=== PATIENT | female | born 1945 | race Caucasian/White ===

== ENCOUNTER 2020-01-09 14:04 | Outpatient (CLI) | payer MEDICARE, SELFPAY ==
[2020-01-09 15:39] LABS: Immunoglobulin G 829 mg/dL (700-1600)
[2020-01-12 21:46] LABS: Immunoglobulin G, Serum 825 mg/dL (600-1540); Immunoglobulin G1 459 mg/dL (382-929); Immunoglobulin G2 286 mg/dL (241-700); Immunoglobulin G3 23 mg/dL (22-178); Immunoglobulin G4 15.1 mg/dL (4.0-86.0)
== END 2020-01-09 14:05 | disposition home or self-care (01) ==
PROVIDERS: PCP Internal Medicine; Visit Provider Nurse Practitioner Family
DX: D83.9 Common variable immunodeficiency, unspecified (principal)
CPT/HCPCS: 36415; 82784; 82787

== ENCOUNTER 2020-01-27 02:33 | Emergency (ER) | payer MEDICARE, SELFPAY ==
--- NOTE | ~2020-01-27 | CT_ITS ---
EXAMINATION: CTA chest PE protocol DATE: 01/27/2020 04:21 INDICATION: Palpitations. TECHNIQUE: Computed tomography angiography (CTA) of the chest was performed with 100 mL Omnipaque-350 intravenous contrast timed to evaluate the pulmonary arteries. Coronal maximum intensity projection 3D-reconstructions were created by the technologist. Automated exposure control and iterative reconst ruction technique were employed. The dose-length product was 242.68 mGy-cm. COMPARISON: Chest CT 12/13/2016 FINDINGS: There is mild scarring at the lung apices. Calcified right lung nodules and calcified right hilar and mediastinal lymph nodes are consistent with old granulomatous disease. There is mild atele ctasis in the inferior lungs. No pleural effusion. The heart size is normal. No pericardial effusion. There is no pulmonary embolus. There is a small sliding hiatal hernia. There is severe stenosis of c eliac axis origin. There is moderate thoracic spondylosis. IMPRESSION: 1. No pulmonary embolus. Reviewed, dictated and finalized at location A. LIFE 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 IMPRESSION: 1. No pulmonary embolus.
--- NOTE | ~2020-01-27 | XR_ITS ---
EXAMINATION: XR chest 2V DATE: 01/27/2020 03:08 INDICATION: Palpitations. TECHNIQUE: Frontal and lateral views of the chest were obtained. COMPARISON: Chest 2 views 05/10/2019, chest CT 01/27/2020 FINDINGS: There is mild scarring at the lung apices. There is mild atelectasis at left lung base. No pleural effusion or pneumothorax. The heart size is normal. IMPRESSION: 1. Mild scarring at the lung apices and mild atelectasis at left lung base. Reviewed, dictated and finalized at location A. ET CLOSER
[2020-01-27 02:31] VITALS: BP 168/84; PULSE 100; RESP 19; TEMP 36.4; O2SAT 100
--- NOTE | 2020-01-27 02:40 | ED.ARRPALP ---
HPI - Arrhythmia/Palpitations General Chief Complaint: Arrhythmia/Palpitations Stated Complaint: ELEVATED HR Time Seen by Provider: 01/27/20 02:40 Source: patient and RN notes reviewed Mode of arrival: EMS Limitations: no limitations History of Present Illness HPI narrative: Pt is a 74 y/o female who presents to the ED via EMS with c/o palpitations starting this morning. She notes that she woke up with her heart racing around 2 AM this morning. Pt states that she felt lightheaded and slightly disoriented shortly after waking up. She currently denies any CP or SOB. Pt states that her symptoms are slightly alleviated while in the ED bed. complaint: heart racing Onset (ago): minute(s) (40) Time: 02:00 Context: awoke with symptoms Associated symptoms: other (lightheadedness) Related Data Home Medications Medication Instructions Recorded Confirmed albuterol sulfate 90 mcg/actuation 1 puff INHALATION Q4H PRN 01/08/20 01/09/20 aerosol inhaler clonazepam 0.5 mg tablet 0.5 mg PO DAILY 01/08/20 01/09/20 esomeprazole magnesium 40 mg 40 mg PO DAILY 01/08/20 01/09/20 capsule,delayed release levalbuterol HCl 0.63 mg/3 mL 0.63 mg INHALATION Q6H PRN 01/08/20 01/09/20 solution for nebulization lisinopril 40 mg tablet 40 mg PO DAILY 01/08/20 01/09/20 nebivolol 5 mg tablet 5 mg PO DAILY 01/08/20 01/09/20 Allergies Allergy/AdvReac Type Severity Reaction Status Date / Time amlodipine Allergy Unknown Unknown Verified 01/27/20 02:39 azithromycin Allergy Unknown Unknown Verified 01/27/20 02:39 carvedilol Allergy Unknown Unknown Verified 01/27/20 02:39 ciprofloxacin Allergy Unknown Unknown Verified 01/27/20 02:39 diltiazem Allergy Unknown Unknown Verified 01/27/20 02:39 hydralazine Allergy Unknown Unknown Verified 01/27/20 02:39 metoprolol Allergy Unknown Unknown Verified 01/27/20 02:39 propranolol Allergy Unknown Unknown Verified 01/27/20 02:39 verapamil Allergy Unknown Unknown Verified 01/27/20 02:39 Review of Systems Review of Systems: All systems reviewed & are unremarkable except as noted in HPI and below Cardiovascular: Cardiovascular: Denies chest pain and Reports palpitations Respiratory: Respiratory: Denies dyspnea Neurologic: Reports other (lightheadedness) [facility] [place] Past Medical History Medical History Anxiety Arthritis Asthma Atrial fibrillation Back pain Bronchitis Cataracts, bilateral GERD (gastroesophageal reflux disease) HTN (hypertension) Hypothyroidism IBS (irritable bowel syndrome) Surgical History Surgical History Metal plate in skull Family History Family History (Updated 06/02/18 @ 08:57 by DOCTOR UNKNOWN) Mother Hypertension, Onset Age: 89 Acute myocardial infarction Sibling Hypertension Father Family history of congestive heart failure, Onset Age: 86 Social History Social History Smoking status: Never smoker Alcohol intake: never Exam Narrative: Exam Narrative: APPEARANCE: No acute distress, nontoxic, resting in bed EYES: EOMI HEENT: Normocephalic, atraumatic, OMM RESPIRATORY: No respiratory distress Clear to auscultation bilaterally with no rhonchi wheezing or rales. CARDIOVASCULAR: Regular rate and rhythm without murmurs rubs or gallops. ABDOMINAL: Soft, nontender, nondistended, no rebound or guarding MUSCULOSKELETAl: Moves all extremities. No clubbing, cyanosis or edema. NEURO: Awake and alert. Following commands, speech normal, no focal deficits SKIN:: Warm, dry. No rashes lesions or abrasions PSYCHIATRIC: Normal affect/mood, Course Course Emergency Course: Reviewed old records. Patient has been evaluated by this several times before in past and is followed by Dr. Kemp. She is on metoprolol is felt that anxiety contributes to her tachycardia. Patient denies having any chest pain discharge at this time
--- NOTE | 2020-01-27 02:42 | ECG_ITS ---
Measurements Intervals [place] Rate: 95 P: 0 OR: 167 QRS: 70 QRSD: 103 T: 4 QT: 363 QTc: 458 Interpretive Statements SINUS RHYTHM DELAYED PRECORDIAL R/S TRANSITION BORDERLINE ST-T WAVE ABNORMALITY- INF/LAT LEADS BORDERLINE ECG Electronically Signed On 01-27-2020 7:29:45 TRAY DRIER OPERATOR by Hayes Estrada D.O.
[2020-01-27 03:02] LABS: Basophils Percent Auto 0.2 % (0.2-1.2); Hematocrit 37.1 % (37.0-47.0); Hemoglobin 12.1 g/dL (12.0-15.0); Immature Granulocyte Absolute 0.03 K/mm3 (0.00-0.031); Immature Granulocyte Percent A 0.2 % (0-0.5); Lymphocytes Absolute Auto 0.29 K/mm3 (0.9-3.2); Lymphocytes Percent Auto 2.4 % (18.3-44.2); Mean Corpuscular HGB Conc 32.6 g/dl (32-36); Mean Corpuscular Hemoglobin 29.5 pg (26-34); Mean Corpuscular Volume 90.5 fl (80-100); Mean Platelet Volume 9.7 fl (7.4-10.4); Monocytes Absolute Auto 0.8 K/mm3 (0.1-0.6); Monocytes Percent Auto 6.8 % (2.6-8.5); Neutrophils Absolute Auto 10.9 K/mm3 (1.3-6.7); Neutrophils Percent Auto 90.4 % (45.5-73.1); Platelet Count Result 257 k/mm3 (150-375); Red Cell Distribution Width 12.3 % (11.5-14.5); White Blood Count 12.1 K/mm3 (4.5-10.0)
[2020-01-27] MEDS: LACTATED RINGERS 1,000 ML 999 ML IV CONT (03:10)
[2020-01-27 03:11] LABS: INR 0.9
[2020-01-27 03:12] LABS: Partial Thromboplastin Time 24.8 SECONDS (22.3-36.8)
[2020-01-27 03:13] LABS: Alanine Aminotransferase 23 U/L (4-35); Albumin Level 4.1 g/dL (3.5-5.1); Alkaline Phosphatase 89 U/L (38-126); Aspartate Amino Transferase 24 U/L (14-36); Bilirubin,Total 0.4 mg/dL (0.2-1.3); Blood Urea Nitrogen 19 mg/dL (7-17); Calcium 9.2 mg/dL (8.4-10.2); Carbon Dioxide 21 mmol/L (22-30); Chloride 104 mmol/L (98-107); Estimated Glomerular Filt Rate > 60; Glucose 145 mg/dL (65-105); Potassium 4.2 mmol/L (3.4-5.0); Sodium 138 mmol/L (137-145)
[2020-01-27 03:25] LABS: Troponin I < 0.012 ng/mL (0.000-0.034)
[2020-01-27 03:57] VITALS: BP 136/71; PULSE 83; RESP 16; O2SAT 97
[2020-01-27 05:04] VITALS: BP 152/75; PULSE 77; RESP 14; O2SAT 99
[2020-01-27 06:07] LABS: Troponin I < 0.012 ng/mL (0.000-0.034)
[2020-01-27 06:35] VITALS: BP 139/65; PULSE 73; RESP 12; O2SAT 99
== END 2020-01-27 06:35 | disposition home or self-care (01) ==
PROVIDERS: Emergency Provider Emergency Medicine; PCP Internal Medicine
DX: M19.90 Unspecified osteoarthritis, unspecified site (principal); J45.909 Unspecified asthma, uncomplicated; K21.9 Gastro-esophageal reflux disease without esophagitis; I10 Essential (primary) hypertension; E03.9 Hypothyroidism, unspecified; K58.9 Irritable bowel syndrome, unspecified; I48.91 Unspecified atrial fibrillation; H26.9 Unspecified cataract
CPT/HCPCS: 36415; 71046; 71275; 80053; 84484; 85025; 85610; 85730; 93005; 96360; 99284; J7120; Q9967

== ENCOUNTER 2020-10-01 08:50 | Outpatient (CLI) | payer MEDICARE, SELFPAY ==
--- NOTE | 2020-10-06 12:42 | WPDSIXMINUTE ---
Six Minute Walk Six Minute Walk: DOS: 10/01/2020 REQUESTING: Sd Anderson APRN REASON FOR TESTING: shortness of breath SIX MINUTE WALK This test was conducted per ATS standards. The initial blood pressure was 150/110. Initial saturation was 95%. Pulse was 78. The patient walked while breathing room air. There was no decrease in saturation. Lowest saturation was 94%. Highest saturation 97%. Pulse varied between 78 and 89 beats per minute. The patient walked 800 ft/ 243.8 m. IMPRESSION: this is a normal walk study without desaturation. No supplemental oxygen is indicated with exertion.
--- NOTE | 2020-10-12 12:16 | WPDPFTINT ---
PFT Interpretation PFT Interpretation: This PFT met all criteria for ATS standards and reproducibility FEV/FVC post bronchodilator 71% FEV1 91% or 1.67 liters FVC 89% or 2.36 liters There was a significant improvement in FEV1 and FVC. FVC improved by 20% or 390 ml TLC 89% RV 102% RV/TLC 48% DLCO 81% when adjusted for alveolar volume but not adjusted for hemoglobin Flow volume loops showed some expiratory coving Impression: Mild airflow obstruction with good response to bronchodilators. This pattern is suggestive of Asthma. Clinical correlation is advised.
== END 2020-10-01 08:51 | disposition home or self-care (01) ==
PROVIDERS: PCP Internal Medicine; Visit Provider Nurse Practitioner Family
DX: J44.9 Chronic obstructive pulmonary disease, unspecified (principal)
CPT/HCPCS: 94060; 94618; 94726; 94729

== ENCOUNTER 2020-10-06 08:26 | Outpatient (CLI) | payer MEDICARE, SELFPAY ==
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
[2020-11-07 11:23] VITALS: BMI 25.4
== END 2020-10-06 08:27 | disposition home or self-care (01) ==
LOC: ANHCSM 08:26
PROVIDERS: Visit Provider Nurse Practitioner Family
DX: G47.10 Hypersomnia, unspecified (principal); R00.0 Tachycardia, unspecified; I10 Essential (primary) hypertension; Z86.69 Personal history of other diseases of the nervous system and sense organs
CPT/HCPCS: 95806

== ENCOUNTER 2021-01-20 16:40 | Outpatient (CLI) | payer MEDICARE, SELFPAY ==
[2021-01-20 17:27] LABS: Basophils Percent Auto 0.2 % (0.2-1.2); Eosinophils Percent Auto 0.1 % (0-4.4); Hematocrit 42.6 % (37.0-47.0); Hemoglobin 14.4 g/dL (12.0-15.0); Immature Granulocyte Absolute 0.07 K/mm3 (0.00-0.031); Immature Granulocyte Percent A 0.6 % (0-0.5); Lymphocytes Percent Auto 7.4 % (18.3-44.2); Mean Corpuscular HGB Conc 33.8 g/dl (32-36); Mean Corpuscular Hemoglobin 30.2 pg (26-34); Mean Corpuscular Volume 89.3 fl (80-100); Mean Platelet Volume 8.9 fl (7.4-10.4); Monocytes Absolute Auto 0.7 K/mm3 (0.1-0.6); Monocytes Percent Auto 5.9 % (2.6-8.5); Neutrophils Absolute Auto 10.4 K/mm3 (1.3-6.7); Neutrophils Percent Auto 85.8 % (45.5-73.1); Platelet Count Result 298 k/mm3 (150-375); Red Blood Count 4.77 M/mm3 (4.2-5.4); Red Cell Distribution Width 12.6 % (11.5-14.5); White Blood Count 12.1 K/mm3 (4.5-10.0)
[2021-01-22 23:25] LABS: Immunoglobulin E 39 kU/L (<=114)
== END 2021-01-20 16:41 | disposition home or self-care (01) ==
LOC: ANHLAB 16:43
PROVIDERS: PCP Internal Medicine; Visit Provider Nurse Practitioner Family
DX: J45.30 Mild persistent asthma, uncomplicated (principal)
CPT/HCPCS: 36415; 82785; 85025; 86606

== ENCOUNTER 2021-03-04 13:59 | Observation (INO) | payer MEDICARE, SELFPAY ==
--- NOTE | ~2021-03-04 | XR_ITS ---
EXAMINATION: XR chest 2V DATE: 03/04/2021 16:40 INDICATION: Shortness of breath, hypertension TECHNIQUE: AP and lateral views of the chest are obtained. COMPARISON: 01/27/2020 FINDINGS: The lungs are free of focal airspace opacities. Mild atelectasis is again noted at the left lung base. There is no pleural effusion or pneumothorax. The cardiomediastinal silhouette is normal. There is moderate thoracic spondylosis. IMPRESSION: 1. No acute cardiopulmonary abnormality. Reviewed, dictated and finalized at location A.
[2021-03-04 14:02] VITALS: BP 159/117; PULSE 85; RESP 18; TEMP 35.6; O2SAT 97
--- NOTE | 2021-03-04 15:53 | ECG_ITS ---
Measurements Intervals [place] Rate: 72 P: 55 UT: 154 QRS: -19 QRSD: 94 T: 56 QT: 386 QTc: 423 Interpretive Statements SINUS RHYTHM LEFT VENTRICULAR HYPERTROPHY WITH ST-T CHANGE POOR R WAVE PROGRESSION, ANTERIOR LEADS BORDERLINE ECG Electronically Signed On 03-04-2021 19:15:30 CDT by Hayes Estrada D.O.
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
[2021-03-04] MEDS: IPRATROPIUM BR 0.02% INH SOLN 0.5 MG/2.5 ML VIAL INHALATION (16:02)
[2021-03-04] MEDS: ALBUTEROL SULFATE NEB 2.5 MG/0.5 ML INH 5 MG INHALATION (16:02)
[2021-03-04 16:12] VITALS: PULSE 77; RESP 16
[2021-03-04 16:18] LABS: Base Excess ABG -0.7 mEq/l (+/-2.0); Fractional Inspired Oxygen 21 %; HCO3 ABG 23.3 mEq/l (22.0-26.0); Oxygen Content ABG 20.3 %vol (16.0-22.0); Oxygen Saturation ABG 96.4 % (95.0-100.0); PCO2 ABG 36.7 mmHg (35.0-45.0); PO2 ABG 82.8 mmHg (80.0-100.0); PO2 FiO2 Ratio Arterial Blood 3.94 %; Total Hemoglobin 15.2 g/dL (12.0-18.0); pH ABG 7.421 (7.350-7.450)
[2021-03-04 16:20] LABS: Device ROOM AIR; Site Drawn LEFT BRACHIAL
[2021-03-04 16:23] VITALS: PULSE 68; RESP 16
[2021-03-04 16:53] LABS: Basophils Percent Auto 0.2 % (0.2-1.2); Hemoglobin 14.8 g/dL (12.0-15.0); Immature Granulocyte Absolute 0.06 K/mm3 (0.00-0.031); Immature Granulocyte Percent A 0.5 % (0-0.5); Lymphocytes Absolute Auto 1.13 K/mm3 (0.9-3.2); Lymphocytes Percent Auto 8.9 % (18.3-44.2); Mean Corpuscular HGB Conc 34.4 g/dl (32-36); Mean Corpuscular Hemoglobin 30.3 pg (26-34); Mean Corpuscular Volume 88.1 fl (80-100); Mean Platelet Volume 8.7 fl (7.4-10.4); Monocytes Absolute Auto 0.8 K/mm3 (0.1-0.6); Monocytes Percent Auto 6.4 % (2.6-8.5); Neutrophils Absolute Auto 10.6 K/mm3 (1.3-6.7); Platelet Count Result 308 k/mm3 (150-375); Red Blood Count 4.88 M/mm3 (4.2-5.4); Red Cell Distribution Width 13.1 % (11.5-14.5); White Blood Count 12.7 K/mm3 (4.5-10.0)
[2021-03-04 17:02] LABS: INR 0.9; Prothrombin Time 12.3 Seconds (11.1-14.7)
[2021-03-04 17:03] LABS: Partial Thromboplastin Time 23.3 SECONDS (22.3-36.8)
[2021-03-04 17:10] VITALS: BP 161/89; PULSE 70; RESP 13; O2SAT 97
[2021-03-04 17:10] LABS: Alanine Aminotransferase 24 U/L (4-35); Albumin Level 4.5 g/dL (3.5-5.1); Alkaline Phosphatase 77 U/L (38-126); Anion Gap 6 mmol/L (8-16); Aspartate Amino Transferase 24 U/L (14-36); Bilirubin,Total 0.3 mg/dL (0.2-1.3); Blood Urea Nitrogen 18 mg/dL (7-17); Carbon Dioxide 27 mmol/L (22-30); Chloride 106 mmol/L (98-107); Estimated CRCL calculation 44 ml/min; Estimated Glomerular Filt Rate > 60; Glucose 115 mg/dL (65-105); Potassium 4.4 mmol/L (3.4-5.0); Sodium 139 mmol/L (137-145)
[2021-03-04 17:18] LABS: NT Pro B Type Natriuretic Pept 329 PG/ML (5-100)
--- NOTE | 2021-03-04 18:25 | PC.NURSE ---
Pt took own blood pressure medication that she brought from home. Pt took Clonidine and spironolactone. Pt is unsure of the mg. Informed Dr. Cuello of this.
[2021-03-04 19:15] LABS: Troponin I < 0.012 ng/mL (0.000-0.034)
--- NOTE | 2021-03-04 19:44 | ADMGEN ---
This patient, Meryl Chavis, was admitted to Medical Room 255-01. Patient/family oriented to hospital policies and general routines including ID bracelet, bed and alarms, visiting hours, pain management, procedures, bathroom and other care routines, personal items, smoking policy, room service/diet, and visiting hours. Information on how to activate the Rapid Response Team has been discussed. Patient/Family are encouraged to report perceived risks to care and to ask questions if they do not understand what they are told or what they should do.
[2021-03-04 20:00] VITALS: BP 169/87; PULSE 73; RESP 16; TEMP 36.1; O2SAT 99; BMI 26.0
[2021-03-04 20:32] VITALS: PULSE 73
[2021-03-05] VITALS (10 sets, daily range): BP systolic 155–182; BP diastolic 79–100; PULSE 63–85; RESP 16; TEMP 36.1; O2SAT 94–96
[2021-03-05] MEDS: cloNIDine HCL 0.1 MG TABLET PO ×3 (00:57→13:40)
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
[2021-03-05] MEDS: LEVOTHYROXINE SODIUM 112 MCG TABLET PO (06:36)
[2021-03-05] MEDS: FLUTICASONE/SALMETEROL 115-21 MCG INHALER 1 PUFF 2 PUFF INHALATION (08:31)
[2021-03-05] MEDS: CIPROFLOXACIN 500 MG TAB PO (09:49)
[2021-03-05] MEDS: lisinopriL 20 MG TABLET PO (09:50)
[2021-03-05] MEDS: SPIRONOLACTONE 50 MG TABLET PO (09:54)
--- NOTE | 2021-03-05 10:45 | PM.DS ---
DS: Admitting Diagnosis Admitting Diagnosis Admitting Diagnosis: Elevated blood pressure DS: Discharge Diagnosis Discharge Diagnosis (1) Hypertension, uncontrolled: Code(s): I10 - Essential (primary) hypertension Status: Acute (2) Sputum culture positive for Pseudomonas: Code(s): R84.5 - Abnormal microbiological findings in specimens from respiratory organs and thorax Status: Acute (3) Breast cancer: Code(s): C50.919 - Malignant neoplasm of unspecified site of unspecified female breast Status: Acute (4) Anxiety: Code(s): F41.9 - Anxiety disorder, unspecified Status: Acute DS: Summary Hospital Course Hospital Course: Patient is a 75-year-old female with multiple allergies/intolerance is who was at an outpatient appointment and was sent to the ER due to elevated blood pressures. The patient states she has a long history of elevated blood pressures and white coat syndrome. Her blood pressure was over 200 systolic at the outside appointment but when she got to the ER it was 159/117. EKG showed sinus rhythm and left ventricular hypertrophy with no significant ST change on my read. This is likely due to her uncontrolled hypertension. She said she had an echo in the past and was told her heart was fine . Chest x-ray was negative. White blood cell count mildly elevated 12.7 and likely due to steroids and or Pseudomonas growing in her sputum that was reported outpatient from [facility] that she is currently on Cipro for. She has no cough, fevers or chills. BMP was within normal limits. Trops neg x 3 with BNP 329 and for her age, does not indicate active heart failure. Pt was admitted to the hospitalist service and observed. She had no CP or SOB while she was here. Her bp did improve but still slightly elevated. She has multiple allergies but her clonidine was increased and changed to patch therapy so she would have a more consistent dose. Lisinopril was also started. She is on spironolactone so she will need a BMP in 1 week to monitor her potassium. She said she is to see but hasn't been back in awhile but will follow up with him in 1-2 weeks. Overall, the pt was feeling back to her baseline and egar for d/c. She was educated about the worrisome signs and symptoms to come back to the ER for and was discharged in stable condition. Status at Discharge Overall status at discharge: patient is back to baseline Time Spent with Patient Time attestation: Total time spent providing and/or coordinating discharge services:36 min Time spent: Greater than 30 minutes Exam Narrative: Exam Narrative: General: Well developed well nourished patient in NAD HEENT: normocephalic Neck: supple Neuro: Alert and oriented. CN 2-12 intact. strength 5/5 in UE and LE CV:RRR, telemetry without abnormal reviews Resp:CTA Abd: Soft, non distended. No pain to palpation. Positive bowel sounds Extremities: No swelling, erythema, or pain to palpation. DS: Data Data Completed and Pending Labs on day of discharge: Labs from last 24 hours 03/04/21 03/04/21 03/04/21 16:46 16:46 16:46 WBC RBC Hgb Hct MCV MCH MCHC RDW Plt Count MPV Immature Gran % (Auto) Neut % (Auto) Lymph % (Auto) [place] % (Auto) Eos % (Auto) Baso % (Auto) Lymph # (Auto) [place] # (Auto) Eos # (Auto) Baso # (Auto) Abs Immat Gran (auto) Absolute Neuts (auto) Absolute Nucleated RBC Nucleated RBC % PT 12.3 INR 0.9 APTT 23.3 Puncture Site ABG pH ABG pCO2 ABG pO2 ABG PO2/FiO2 Ratio ABG HCO3 ABG O2 Saturation ABG O2 Content ABG Base Excess A-a Gradient Oxyhemoglobin Total Hemoglobin O2 Delivery Device O2 Liters/Min FiO2 Sodium 139 Potassium 4.4 Chloride 106 Carbon Dioxide 27 Anion Gap 6 L BUN 18 H Creatinine 0.80 Estim Creat Clear Calc 44 Estimated GFR > 60 Glucose
--- NOTE | 2021-03-05 11:15 | PC.NURSE ---
On 03/05/21, the student, [Siri Long ], provided care and completed [facility] documentation on this patient. I have reviewed the student's documentation and agree with the findings.
[2021-03-05] MEDS: lisinopriL 10 MG TABLET PO (12:02)
== END 2021-03-05 15:50 | disposition home or self-care (01) ==
LOC: ANHED 18:36 → ANH2MED 19:09
PROVIDERS: Admitting Provider Hospitalist; Emergency Provider Emergency Medicine; PCP Internal Medicine; Visit Provider Internal Medicine
DX: I10 Essential (primary) hypertension (principal); R06.02 Shortness of breath; B96.5 Pseudomonas (aeruginosa) (mallei) (pseudomallei) as the cause of diseases classified elsewhere; C50.912 Malignant neoplasm of unspecified site of left female breast; D72.829 Elevated white blood cell count, unspecified; F41.9 Anxiety disorder, unspecified; R07.89 Other chest pain; G89.29 Other chronic pain; I48.91 Unspecified atrial fibrillation; J44.9 Chronic obstructive pulmonary disease, unspecified; K21.9 Gastro-esophageal reflux disease without esophagitis; E03.9 Hypothyroidism, unspecified; G47.33 Obstructive sleep apnea (adult) (pediatric); H26.9 Unspecified cataract; K58.9 Irritable bowel syndrome, unspecified; Z79.51 Long term (current) use of inhaled steroids; Z79.52 Long term (current) use of systemic steroids
CPT/HCPCS: 36415; 36600; 71046; 80053; 82805; 83880; 84484; 85025; 85610; 85730; 93005; 94640; 99285; A9270; G0378

== ENCOUNTER 2021-12-10 16:41 | Emergency (ER) | payer MEDICARE, SELFPAY ==
--- NOTE | ~2021-12-10 | XR_ITS ---
XR chest 2V DATE: 12/10/2021 17:36 INDICATION: Shortness of breath, fever TECHNIQUE: 2 views COMPARISON: 03/04/2021 2 view chest FINDINGS: Normal heart size. There is aortic arch calcification and minimal aortic unfolding. No laurie r or mediastinal enlargement. The lungs are clear of infiltrate or consolidation. No pleural effusion or pulmonary vascular congest ion or pneumothorax. Left breast soft tissue clips. Diffuse osteopenia. IMPRESSION: No active cardiopulmonary disease Reviewed, dictated and finalized at location [facility]
[2021-12-10 16:54] VITALS: BP 124/68; PULSE 99; RESP 16; TEMP 37.5; O2SAT 100
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
== END 2021-12-10 18:06 | disposition home or self-care (01) ==
PROVIDERS: Emergency Provider Nurse Practitioner; PCP Emergency Medicine
DX: J06.9 Acute upper respiratory infection, unspecified (principal); J45.901 Unspecified asthma with (acute) exacerbation; M19.90 Unspecified osteoarthritis, unspecified site; K21.9 Gastro-esophageal reflux disease without esophagitis; I10 Essential (primary) hypertension; E03.9 Hypothyroidism, unspecified; G47.33 Obstructive sleep apnea (adult) (pediatric); Z98.42 Cataract extraction status, left eye; Z98.41 Cataract extraction status, right eye; Z96.1 Presence of intraocular lens; I48.91 Unspecified atrial fibrillation; Z85.3 Personal history of malignant neoplasm of breast; F41.9 Anxiety disorder, unspecified
CPT/HCPCS: 71046; 87426; 99213; C9803; G0463

== ENCOUNTER 2022-03-19 16:53 | Emergency (ER) | payer MEDICARE, SELFPAY ==
[2022-03-19 17:07] VITALS: BP 146/88; PULSE 88; RESP 18; TEMP 37.5; O2SAT 99
[2022-03-19 17:09] VITALS: BP 146/88; PULSE 88; RESP 18; TEMP 37.5; O2SAT 99
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
== END 2022-03-19 18:08 | disposition home or self-care (01) ==
PROVIDERS: Emergency Provider Nurse Practitioner Family; PCP Emergency Medicine
DX: J45.901 Unspecified asthma with (acute) exacerbation (principal); Z20.822 Contact with and (suspected) exposure to COVID-19; M19.90 Unspecified osteoarthritis, unspecified site; I48.91 Unspecified atrial fibrillation; K21.9 Gastro-esophageal reflux disease without esophagitis; I10 Essential (primary) hypertension; E03.9 Hypothyroidism, unspecified; G47.33 Obstructive sleep apnea (adult) (pediatric); J44.9 Chronic obstructive pulmonary disease, unspecified; Z85.3 Personal history of malignant neoplasm of breast; F41.9 Anxiety disorder, unspecified
CPT/HCPCS: 87426; 87804; 99213; C9803; G0463

== ENCOUNTER 2023-02-14 16:51 | Emergency (ER) | payer MEDICARE, SELFPAY ==
[2023-02-14 17:00] VITALS: BP 178/87; PULSE 103; RESP 20; TEMP 36.6; O2SAT 99
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
== END 2023-02-14 18:24 | disposition home or self-care (01) ==
PROVIDERS: Emergency Provider Nurse Practitioner Family; PCP Emergency Medicine
DX: R06.02 Shortness of breath (principal); I10 Essential (primary) hypertension; F41.9 Anxiety disorder, unspecified; E03.9 Hypothyroidism, unspecified; I48.91 Unspecified atrial fibrillation; Z85.3 Personal history of malignant neoplasm of breast
CPT/HCPCS: 99213; G0463

== ENCOUNTER 2023-05-09 15:36 | Outpatient (CLI) | payer MEDICARE, SELFPAY ==
[2023-05-09 16:04] LABS: Basophils Absolute Auto 0.1 K/mm3 (0.0-0.1); Basophils Percent Auto 0.7 % (0.2-1.2); Eosinophils Absolute Auto 0.1 K/mm3 (0-0.3); Eosinophils Percent Auto 1.6 % (0-4.4); Hemoglobin 12.8 g/dL (12.0-15.0); Immature Granulocyte Absolute 0.04 K/mm3 (0.00-0.031); Immature Granulocyte Percent A 0.4 % (0-0.5); Lymphocytes Absolute Auto 1.57 K/mm3 (0.9-3.2); Lymphocytes Percent Auto 17.6 % (18.3-44.2); Mean Corpuscular Hemoglobin 30.2 pg (26-34); Mean Corpuscular Volume 94.3 fl (80-100); Mean Platelet Volume 9.3 fl (7.4-10.4); Monocytes Absolute Auto 0.8 K/mm3 (0.1-0.6); Monocytes Percent Auto 8.9 % (2.6-8.5); Neutrophils Absolute Auto 6.3 K/mm3 (1.3-6.7); Neutrophils Percent Auto 70.8 % (45.5-73.1); Platelet Count Result 293 k/mm3 (150-375); Red Blood Count 4.24 M/mm3 (4.2-5.4); Red Cell Distribution Width 12.3 % (11.5-14.5); White Blood Count 8.9 K/mm3 (4.5-10.0)
[2023-05-09 16:41] LABS: Alanine Aminotransferase 19 U/L (6-35); Albumin Level 4.2 g/dL (3.5-5.1); Alkaline Phosphatase 96 U/L (38-126); Anion Gap 6 mmol/L (8-16); Aspartate Amino Transferase 26 U/L (14-36); Bilirubin,Total 0.3 mg/dL (0.2-1.3); Blood Urea Nitrogen 24 mg/dL (7-17); Calcium 9.4 mg/dL (8.4-10.2); Carbon Dioxide 30 mmol/L (22-30); Chloride 98 mmol/L (98-107); Estimated Glomerular Filt Rate 60; Glucose 96 mg/dL (65-110); Potassium 3.2 mmol/L (3.4-5.0); Sodium 134 mmol/L (137-145)
[2023-05-09 16:58] LABS: Immunoglobulin A 230 mg/dL (70-400); Immunoglobulin G 632 mg/dL (700-1600); Immunoglobulin M 33 mg/dL (40-230)
[2023-05-12 12:57] LABS: Lambda Light Chain 11.7 mg/L (5.7-26.3)
[2023-05-12 15:50] LABS: Alpha 1 Globulin 0.3 g/dL (0.2-0.3); Alpha 2 Globulin 0.9 g/dL (0.5-0.9); Beta 1 Globulin 0.4 g/dL (0.4-0.6); Gamma Globulin 0.6 g/dL (0.8-1.7); Interpretation Consistent with; Protein, Total 6.6 g/dL (6.1-8.1)
== END 2023-05-09 15:37 | disposition home or self-care (01) ==
LOC: ANHLAB 15:42
PROVIDERS: PCP Internal Medicine Endocrinology, Diabetes & Metabolism; Visit Provider Internal Medicine Hematology & Oncology
DX: D80.9 Immunodeficiency with predominantly antibody defects, unspecified (principal)
CPT/HCPCS: 36415; 80053; 82784; 83883; 84155; 84165; 85025

== ENCOUNTER 2023-11-01 12:50 | Emergency (ER) | payer MEDICARE, SELFPAY ==
--- NOTE | ~2023-11-01 | CT_ITS ---
EXAMINATION: CT abdomen pelvis w con DATE: 11/01/2023 16:42 INDICATION: Nausea, vomiting and lower abdominal pain TECHNIQUE: Computed tomography (CT) of the abdomen and pelvis was performed with 100 mL Omnipaque-350 intravenous contrast. Automated exposure control and iterative reconstruction technique were employe d. The dose-length product was 356.25 mGy-cm. COMPARISON: None FINDINGS: Mild discoid atelectasis in the left lower lobe. Calcified right lower lobe nodules consistent with o ld granulomatous disease. Heart size is normal. No pericardial or pleural effusion. Small sliding-typ e hiatal hernia. Liver, gallbladder, spleen, pancreas, bilateral adrenal glands and kidneys are romy l. Moderate sigmoid: Predominant diverticulosis without adjacent from trace stranding to suggest dive rticular colitis. Small bowel and appendix are normal. Few small calcified degenerated uterine fibroi ds. Bladder and bilateral adnexa are unremarkable. No free intraperitoneal gas or fluid. No pathologi krissy enlarged abdominal or pelvic lymphadenopathy. There is calcified atherosclerosis of the aorta a nd many of the other arteries. There appears be a hemodynamically significant stenosis of approximate ly 70% at the proximal left renal artery and instability 70% at the origin of the celiac axis. Mild t o moderate lumbar and lower thoracic spondylosis. IMPRESSION: 1. No acute intra-abdominal/pelvic process. 2. Sigmoid diverticulosis. 3. Extensive atherosclerotic disease with likely hemodynamically significant stenosis at the origin o f the celiac axis and proximal left renal artery. Reviewed, dictated and finalized at location A. [employer] IMPRESSION: 1. No acute intra-abdominal/pelvic process. 2. Sigmoid diverticulosis. 3. Extensive atherosclerotic disease with likely hemodynamically significant st enosis at the origin of the celiac axis and proximal left renal artery.
[2023-11-01 12:55] VITALS: BP 184/99; PULSE 94; RESP 16; TEMP 36.4; O2SAT 99
--- NOTE | 2023-11-01 15:20 | ED.ABDPAIN ---
HPI - Abdominal Pain General Chief Complaint: Abdominal Pain <America Virk PA-C - Last Filed: 11/01/23 15:33> Stated Complaint: abd pain <America Virk PA-C - Last Filed: 11/01/23 15:33> Time Seen by Provider: 11/01/23 19:43 <America Virk PA-C - Last Filed: 11/01/23 15:33> History of Present Illness HPI narrative: Patient is an 78 y/o female who presents to the ED with c/o abdominal pain. Patient reports she was diagnosed with recurrent diverticulitis 3 weeks ago. She was admitted to [facility] two different times, most recently discharged on 10/18. She states she felt like she was discharged too early both times. She is still currently on Augmentin, but denies improvement of sx's. Patient c/o persistent N/V, persistent pain in lower abdominal pain. Pain worse with eating. Reports intermittent fevers and diarrhea, denies rectal bleeding, melena. Denies urinary complaints. <America Vikr PA-C - Last Filed: 11/01/23 15:33> Patient is an 78 y/o female who presents to the ED with nausea vomiting. Patient states that she was recently hospitalized at [place] several times in the last month for diverticulitis. states she has been having several months of postprandial nausea and vomiting. States that she can really only tolerate broth and toast. She has had extensive workups at [facility] even undergoing Botox to her pylorus. states that she unfortunately continues to have persistent nausea and vomiting after eating. She denies pain after eating. States that her pain has resolved with antibiotics. States that she is supposed to call 1 of her surgeons for follow-up tomorrow. No further complaints or concerns. <Katy Singletary MD - Last Filed: 11/08/23 15:10> Related Data Home Medications: Home Medications Medication Instructions Recorded Confirmed albuterol sulfate 90 mcg/actuation 1 puff inhalation Q4H PRN 01/08/20 02/14/23 aerosol inhaler (Ventolin HFA) Shortness Of Breath Or Wheezing fluticasone 250 mcg-salmeterol 50 1 inh inhalation BID 01/20/21 02/14/23 mcg/dose blistr powdr for inhalation (Advair Diskus) anastrozole 1 mg tablet 1 mg PO DAILY 03/19/22 02/14/23 clonazepam 1 mg tablet 1 mg PO TID 03/19/22 02/14/23 clonidine HCl 0.1 mg tablet 0.1 mg PO BID 03/19/22 02/14/23 hydrochlorothiazide 25 mg tablet 25 mg PO DIRECTED 03/19/22 02/14/23 letrozole 2.5 mg tablet 2.5 mg PO DAILY 03/19/22 02/14/23 levothyroxine 50 mcg tablet 50 mcg PO DIRECTED 03/19/22 02/14/23 liothyronine 5 mcg tablet 5 mcg PO BID 03/19/22 02/14/23 verapamil 40 mg tablet 40 mg PO BID 03/19/22 02/14/23 <YOKASTA Newman Last Filed: 11/01/23 15:33> Allergies/Adverse Reactions: Allergies Allergy/AdvReac Type Severity Reaction Status Date / Time amlodipine Allergy Unknown Unknown Verified 11/01/23 19:25 azithromycin Allergy Unknown Unknown Verified 11/01/23 19:25 carvedilol Allergy Unknown Unknown Verified 11/01/23 19:25 diltiazem Allergy Unknown Unknown Verified 11/01/23 19:25 hydralazine Allergy Unknown Unknown Verified 11/01/23 19:25 metoprolol Allergy Unknown Unknown Verified 11/01/23 19:25 propranolol Allergy Unknown Unknown Verified 11/01/23 19:25 verapamil Allergy Unknown Unknown Verified 11/01/23 19:25 atenolol Allergy Shakiness Verified 11/01/23 19:25 <YOKASTA Newman Last Filed: 11/01/23 15:33> Review of Systems Review of Systems: CONSTITUTIONAL: See HPI. GASTROINTESTINAL: See HPI. GENITOURINARY: Denies dysuria or hematuria. SKIN: Denies rash or itching. MUSCULOSKELETAL: Denies back pain, joint pain, or myalgia. <YOKASTA Newman Last Filed: 11/01/23 15:33> All systems reviewed & are unremarkable except as noted in HPI and below <YOKASTA Newman Last Filed: 11/01/23 15:33> [facility] Past Medical History Medical History: Medical History (Reviewed 11/01/23 @ 15:27 by America Viera
[2023-11-01 15:36] VITALS: BP 190/113; PULSE 76; RESP 15; O2SAT 97
[2023-11-01 15:41] LABS: Basophils Percent Auto 0.3 % (0.2-1.2); Eosinophils Absolute Auto 0.1 K/mm3 (0-0.3); Eosinophils Percent Auto 1.5 % (0-4.4); Hematocrit 42.2 % (37.0-47.0); Hemoglobin 13.9 g/dL (12.0-15.0); Immature Granulocyte Absolute 0.04 K/mm3 (0.00-0.031); Immature Granulocyte Percent A 0.4 % (0-0.5); Lymphocytes Absolute Auto 1.27 K/mm3 (0.9-3.2); Lymphocytes Percent Auto 13.6 % (18.3-44.2); Mean Corpuscular HGB Conc 32.9 g/dl (32-36); Mean Corpuscular Hemoglobin 29.8 pg (26-34); Mean Corpuscular Volume 90.6 fl (80-100); Mean Platelet Volume 9.5 fl (7.4-10.4); Monocytes Absolute Auto 0.9 K/mm3 (0.1-0.6); Monocytes Percent Auto 9.5 % (2.6-8.5); Neutrophils Percent Auto 74.7 % (45.5-73.1); Platelet Count Result 268 k/mm3 (150-375); Red Blood Count 4.66 M/mm3 (4.2-5.4); Red Cell Distribution Width 14.2 % (11.5-14.5); White Blood Count 9.4 K/mm3 (4.5-10.0)
[2023-11-01 15:50] LABS: Lactic Acid Reflex 1.7 mmol/L (0.7-2.0)
[2023-11-01 15:54] LABS: Alanine Aminotransferase 23 U/L (6-35); Albumin Level 4.3 g/dL (3.5-5.1); Alkaline Phosphatase 85 U/L (38-126); Anion Gap 8 mmol/L (8-16); Aspartate Amino Transferase 26 U/L (14-36); Bilirubin,Total 0.4 mg/dL (0.2-1.3); Blood Urea Nitrogen 23 mg/dL (7-17); Calcium 9.6 mg/dL (8.4-10.2); Carbon Dioxide 28 mmol/L (22-30); Chloride 102 mmol/L (98-107); Estimated CRCL calculation 39 ml/min; Estimated Glomerular Filt Rate > 60; Glucose 116 mg/dL (65-110); Lipase 72 U/L (23-300); Potassium 3.9 mmol/L (3.4-5.0); Sodium 138 mmol/L (137-145)
[2023-11-01] MEDS: SODIUM CHLORIDE 0.9% IV 1,000 ML 999 ML IV CONT (20:20)
[2023-11-01] MEDS: ONDANSETRON INJ 4 MG/2 ML VIAL IV PUSH (20:20)
[2023-11-01 20:36] LABS: Appearance Urine Clear (Clear); Bacteria Urine None Seen /hpf; Bilirubin Urine Negative (Negative); Color Urine Yellow (Yellow); Glucose Urine UA Negative (Negative); Ketones Urine Negative (Negative); Leukocyte Esterase Ur 1+ LEU/UL (Negative); Nitrate Urine Negative (Negative); Non Pathogenic Casts 0-2; Protein Urine Negative (Negative); Squamous Epithelial Cell Urine None seen /hpf (Few); Urobilinogen Urine 0.2 mg/dL (<2.0)
[2023-11-01 20:40] LABS: Add Urine Microscopic? YES; Specific Grav Ur 1.036 (1.001-1.035)
[2023-11-01 20:45] VITALS: BP 145/71; PULSE 64; RESP 16; O2SAT 98
[2023-11-01 22:20] VITALS: BP 157/86; PULSE 67; RESP 15; O2SAT 99
== END 2023-11-01 22:23 | disposition home or self-care (01) ==
PROVIDERS: Physician Assistant; Emergency Provider Emergency Medicine; PCP Emergency Medicine
DX: R11.2 Nausea with vomiting, unspecified (principal); K31.84 Gastroparesis; K57.90 Diverticulosis of intestine, part unspecified, without perforation or abscess without bleeding; F41.9 Anxiety disorder, unspecified; M19.90 Unspecified osteoarthritis, unspecified site; J45.909 Unspecified asthma, uncomplicated; I48.91 Unspecified atrial fibrillation; Z85.3 Personal history of malignant neoplasm of breast; K21.9 Gastro-esophageal reflux disease without esophagitis; I10 Essential (primary) hypertension; E03.9 Hypothyroidism, unspecified; G47.30 Sleep apnea, unspecified
CPT/HCPCS: 36415; 74177; 80053; 81001; 83605; 83690; 85025; 87086; 96361; 96374; 99284; J2405; J7030; Q9967

== ENCOUNTER 2025-09-10 14:27 | Emergency (ER) | payer MEDICARE, SELFPAY ==
--- OUTSIDE RECORDS SUMMARY | 2024-11-23 08:15 | XMS_ITS ---
Author Organization [facility] Address [address] [place] [address] [address] [place] [address] Care Team Providers Care Chemical Production Machine Operator Name Role Phone Remigio Eloy Unavailable [phone] Social History Sex Assigned At : Social History Observation Description Sex Assigned At Female Encounters Encounter Location Date Provider Diagnosis [facility] 2043 [place] [address] 11/23/2024 Eloy Flood Plan Of Treatment Next Appt Details Provider Name:Eloy Flood , 09/25/2025 04:00:00 PM, [address], [facility], Progress Notes * ZACKERY GROSSOB: 3 (80 yo F)Acc No.[id number]:11/23/2024 Progress Notes Patient: DOLORES AMOR Provider: Ankush GEORGE MD, Natalia.P, F.A.S.N. :1945 A ge:79 Y S ex:Female Date:11/23/2024 Address:[address] [place] [address] Subjective: * Chief Complaints: * * Medical History: Objective: * Vitals: Assessment: Plan: * Treatment: * Billing Information: * Visit Code: * Procedure Codes: * Electronic signature of Desmond Flood MD on 09/10/2025 at 04:24 PM CDT Sign off status: Pending * Provider: Ankush GEORGE MD, CamachoC.P, F.A.S.N. Date: 01/24/2024 Generated for Printing/Faxing/eTransmitting on: 1 04:24 PM CDT
--- OUTSIDE RECORDS SUMMARY | 2024-12-12 11:00 | XMS_ITS ---
Author Organization [facility] Address [address] [address] [place] [address] Care Team Providers Care Anodic Operator Name Role Phone Eloy Flood Unavailable [phone] Social History Sex Assigned At : Social History Observation Description Sex Assigned At Female Encounters Encounter Location Date Provider Diagnosis [place] [facility] 2043 [facility] 15 [place] [address] 12/12/2024 Eloy Flood Chronic kidney disease, stage [...] Name:Eloy Flood , 09/25/2025 04:00:00 PM, 2043 [facility] 15, [place], [address], Progress Notes * ZACKERY GROSSOB: 3 (80 yo F)Acc No.[id number]:12/12/2024 Patient: DOLORES AMOR Provider: Ankush GEORGE MD, F.A.C.P, F.A.S.N. :1945 A ge:79 Y S ex:Female Date:12/12/2024 Address:[address] [place], [place] [id number] Subjective: * Chief Complaints: Objective: Assessment: * Assessment: 1. C hronic kidney disease, stage 2 (mild) - N18.2 (Primary) 2 . H ypokalemia - E87.6 3 . O ther polyuria - R35.89 4 . E ssential (primary) hypertension - I10 Plan: * Billing Information: * Visit Code: 84172 Office Visit, Est Pt., Level 5. * Procedure Codes: * Electronic signature of Desmond Flood MD on 09/10/2025 at 04:23 PM CDT Sign off status: Pending * Provider: Ankush GEORGE MD, F.A.C.P, F.A.S.N. Date: 0 12/12/2024 Generated for Printing/Faxing/eTransmitting on: 1 04:23 PM CDT
--- OUTSIDE RECORDS SUMMARY | 2025-01-30 12:00 | XMS_ITS ---
Author Organization [facility] Address [address] [place] [address] Care Team Providers Care General Doc Name Role Phone Remigio Eloy Unavailable [phone] Social History Sex Assigned At : Social History Observation Description Sex Assigned At Female Problems Problem Type SNOMED Code ICD Code Onset Dates Problem Status W/U Status Risk Notes Problem Thyroid function tests abnormal (326066015) Abnormal results of thyroid function studies (R94.6) Active confirmed Encounters Encounter Location Date Provider Diagnosis [facility] 2043 [facility] [address] [place] [address] 01/30/2025 Eloy Flood Chronic kidney disease, stage [...] Name:Eloy Flood , 09/25/2025 04:00:00 PM, 2043 [facility], [place] [address], [address], Progress Notes * ZACKERY GROSSOB: 3 (80 yo F)Acc No.[id number]:01/30/2025 Patient: DOLORES AMOR Provider: Ankush GEORGE MD, RosalvaP, F.A.S.N. :1945 A ge:79 Y S ex:Female Date:01/30/2025 Address:[address] [place] [address] Subjective: * Chief Complaints: Objective: Assessment: * [...] Plan: * Billing Information: * Visit Code: 93950 Office Visit, Est Pt., Level 5. * Procedure Codes: * Electronic signature of Desmond Flood MD on 09/10/2025 at 04:23 PM CDT Sign off status: Pending * Provider: Ankush GEORGE MD, Evangelist.Carolyn.Sheela.P, F.A.S.N. Date: 0 01/30/2025 Generated for Printing/Faxing/eTransmitting on: 1 04:23 PM CDT
--- OUTSIDE RECORDS SUMMARY | 2025-02-15 14:00 | XMS_ITS ---
Author Organization [facility] Address [address] [place] [address] Care Team Providers Care Cattle Alley Worker Name Role Phone Remigio Eloy Unavailable [phone] Social History Sex Assigned At : Social History Observation Description Sex Assigned At Female Encounters Encounter Location Date Provider Diagnosis [place] [facility] 2043 [place] [address] 02/15/2025 Eloy Flood Plan Of Treatment Next Appt Details Provider Name:Eloy Flood , 09/25/2025 04:00:00 PM, [address], [facility], Progress Notes * ZACKERY GROSSOB: 3 (80 yo F)Acc No.[id number]:02/15/2025 Progress Notes Patient: DOLORES AMOR Provider: Ankush GEORGE MD, Natalia.P, F.A.S.N. :1945 A ge:79 Y S ex:Female Date:02/15/2025 Address:[address] [place] [address] Subjective: * Chief Complaints: * * Medical History: Objective: * Vitals: Assessment: Plan: * Treatment: * Billing Information: * Visit Code: * Procedure Codes: * Electronic signature of Desmond Flood MD on 09/10/2025 at 04:23 PM CDT Sign off status: Pending * Provider: Ankush GEORGE MD, Cecilia.C.P, F.A.S.N. Date: 02/15/2025 Generated for Printing/Faxing/eTransmitting on: 1 04:23 PM CDT
--- OUTSIDE RECORDS SUMMARY | 2025-08-27 15:00 | XMS_ITS ---
Author Organization [facility] Address [address] [place] [address] Care Team Providers Care Leather Toggler Name Role Phone RemigioRadEloy Unavailable [phone] Social History Sex Assigned At : Social History Observation Description Sex Assigned At Female Problems Problem Type SNOMED Code ICD Code Onset Dates Problem Status W/U Status Risk Notes Problem Chronic kidney disease stage 2 (415901239) Chronic kidney disease, stage 2 (mild) (N18.2) Active confirmed Problem Hypo-osmolality and or hyponatremia (128611634) Hypo-osmolality and hyponatremia (E87.1) Active confirmed Problem Syndrome of inappropriate secretion of antidiuretic hormone (47566410) 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 Problem Age-related osteoporosis (655829287) Age-related osteoporosis without current pathological fracture (M81.0) Active confirmed Problem Pain of ear (finding) (261332004) Otalgia, unspecified ear (H92.09) Active confirmed Encounters Encounter Location Date Provider Diagnosis [place] [facility] 2043 [facility] 15 [place] [address] 08/27/2025 Eloy Flood Chronic kidney disease, stage [...] Flood , 09/25/2025 04:00:00 PM, [address], [address], Progress Notes * ZACKERY GROSSOB: 3 (80 yo F)Acc No.[id number]:08/27/2025 Patient: DOLORES AMOR Provider: Ankush GEORGE MD, F.A.C.P, F.A.S.N. :1945 A ge:80 Y S ex:Female Date:08/27/2025 Address:[address] [place] [address] Subjective: * Chief Complaints: Objective: Assessment: * [...] Plan: * Billing Information: * Visit Code: 21843 Office Visit, Est Pt., Level 5. * Procedure Codes: * Electronic signature of Desmond Flood MD on 09/10/2025 at 04:23 PM CDT Sign off status: Pending * Provider: Ankush GEORGE MD, F.A.C.P, F.A.S.N. Date: 0 08/27/2025 Generated for Printing/Faxing/eTransmitting on: 1 04:23 PM CDT
[2025-09-10 14:30] VITALS: BP 122/63; PULSE 91; RESP 20; TEMP 37; O2SAT 99
--- OUTSIDE RECORDS SUMMARY | 2025-09-10 16:23 | XMS_ITS | Clinical Summary ---
Author Organization [facility] Address [address] [place] [address] Care Team Providers Care Electoral Officer Name Role Phone Non-Staff, Provider Primary Care Provider David daly Allergies Active Allergy Reactions Criticality Noted Date Comments Amlodipine Unknown 09/02/2023 Carvedilol Nausea Only 09/13/2023 Diltiazem Unknown 09/02/2023 Hydralazine Hives,Rash,Unknown High 07/07/2017 Verapamil Unknown 09/02/2023 Medications metoprolol succinate ER (TOPROL-XL) 25 MG 24 hr tablet Take 1 tablet (25 mg total) by mouth every evening. Active lisinopril (PRINIVIL) 20 MG tablet Take 1 tablet (20 mg total) by mouth 2 (two) times daily. 2 Active hydroCHLOROthiazide (HYDRODIURIL) 25 MG tablet Take 1 tablet (25 mg total) by mouth daily. Active liothyronine (CYTOMEL) 5 MCG Tab Take 1 tablet (5 mcg total) by mouth 2 (two) times daily. 3 Active levothyroxine (SYNTHROID) 50 MCG tablet Take 1 tablet (50 mcg total) by mouth every morning. 3 Active clonazePAM (KLONOPIN) 2 MG tablet Take 1 tablet (2 mg total) by mouth 3 (three) times daily. 3 Active cloNIDine (CATAPRES) 0.1 MG tablet Take 1 tablet (0.1 mg total) by mouth 2 (two) times daily. Active ondansetron (ZOFRAN-ODT) 4 MG disintegrating tabletIndications:V omiting and diarrhea Take 1 tablet (4 mg total) by mouth every 8 (eight) hours as needed for Nausea. 15 tablet 4 Active famotidine (PEPCID) 20 MG tablet Take 1 tablet (20 mg total) by mouth daily. 30 tablet 4 Active Active Problems No known active problems Family History Medical History Relation Comments Heart Disease Father None Mother Relation Status Comments Father Mother Social History Tobacco Use Types Packs/Day Years Used Date Smoking Tobacco: Never Smokeless Tobacco: Never Alcohol Use Standard Drinks/Week Comments Never 0 (1 standard drink = 0.6 oz pur e alcohol) Comments No Sex and Gender Information Value Date Recorded Sex Assigned at Not on file Legal Sex Female 7:59 AM CDT Gender Identity Not on file Sexual Orientation Not on file Last Filed Vital Signs Vital Sign Reading Time Taken Comments Blood Pressure 142/95 03/17/2024 10:00 PM CDT Pulse 86 03/17/2024 10:00 PM CDT Temperature 36.6 C (97.8 F) 03/17/2024 10:28 PM CDT Respiratory Rate 13 03/17/2024 10:00 PM CDT Oxygen Saturation 97% 03/17/2024 10:00 PM CDT Inhaled Oxygen Concentration - - Weight 64 kg (141 lb) 03/17/2024 8:08 PM CDT Height 157.5 cm (5' 2) 03/17/2024 8:08 PM CDT Body Mass Index 25.79 03/17/2024 8:08 PM CDT Plan of Treatment Health Maintenance Due Date Last Done Comments DTaP, Tdap and Td Vaccines (1 - Tdap) 1962 Pneumococcal Vaccine: 50+ Years (1 of 1 - PCV) 1993 Zoster Vaccines (1 of 2) 1993 Annual Medicare Wellness Visit 2008 RSV Immunization or 60+ Years (1 - 1-dose 75+ series) 2018 COVID-19 Vaccine (4 - season) 2025 02/02/2022, 07/25/2021, 02/13/2021, Additional history exists Influenza Adult (#1) 2025 06/28/2021 Dexa Scan (General) Completed 06/11/2021 Hepatitis A Vaccines Aged Out No long er eligible based on patient's age to complete this topic Meningococcal B Vaccine Aged Out No l onger eligible based on patient's age to complete this topic Meningococcal Vaccine Aged Out No stacey girish eligible based on patient's age to complete this topic RSV Immunizations Under 20 Months Aged Out No longer eligible based on patient's age to complete this topic Medical Devices Implanted Type Area Black Belt Device Identifier Shelf Expiration Date Model / Serial / Lot Plate Lyman Cf Capsule Delivery Dev Implanted:Qty: 1 on 09/13/2023 by Sami Cruz DO at [facility] N/A: Esophagus [employer] 10/08/2024 / [id number] / [id number] Insurance MEDICARE [facility] Advance Directives Documents on File Type Date Recorded 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
--- OUTSIDE RECORDS SUMMARY | 2025-09-10 16:24 | XMS_ITS | Clinical Summary ---
Author Organization [facility] Address [address] [place] [phone] Phone Care Team Providers Care Skin Specialist Name Role Phone Unavailable Primary Care Provider Unavailabl e Allergies Active Allergy Reactions Criticality Noted Date Comments Metoprolol Succinate Shortness of Breath/Wheezing High 01/21/2023 Medications cloNIDine HCL (CATAPRES) 0.1 mg tablet clonidine HCl 0.1 mg tablet TAKE 1 TABLET BY MOUTH TWICE A DAY 05/16/20 20 Active hydroCHLOROth iazide 25 mg tablet hydrochlorothiazide 25 mg tablet TAKE 1 TABLET BY MOUTH EVERY DAY 06/10/20 21 Active levothyroxine 50 mcg tablet levothyroxine 50 mcg tablet TAKE 1 TABLET BY MOUTH EVERY DAY IN THE MORNING Active liothyronine (CYTOMEL) 5 mcg Tablet liothyronine 5 mcg tablet TAKE 1 TABLET BY MOUTH TWICE DAILY (ONCE IN THE AM AND ONCE IN THE PM) 01/09/20 22 Active lisinopriL (PRINIVIL) 20 mg tablet lisinopril 20 mg tablet TAKE 1 TABLET BY MOUTH TWICE A DAY 03/19/20 21 Active omeprazole (PriLOSEC) 20 mg Capsule, Delayed Release(E.C.) Indications:H eartburn Take 1 Capsule (20 mg) by mouth 2 times daily. 180 Capsule 01/21/20 23 Active Active Problems No known active problems Family History Medical History Relation Name Comments Lung Cancer Brother 1 Throat Cancer Brother 2 Heart Failure Father Relation Name Status Comments Brother 1 Brother 2 Father Mother Social History Tobacco Use Types Packs/Day Years Used Date Smoking Tobacco: Never Smokeless Tobacco: Never Alcohol Use Standard Drinks/Week Comments Not Currently 0 (1 standard drink = 0.6 oz pur e alcohol) Comments No Sex and Gender Information Value Date Recorded Sex Assigned at Not on file Legal Sex Female 2:36 PM CDT Gender Identity Not on file Sexual Orientation Not on file Last Filed Vital Signs Vital Sign Reading Time Taken Comments Blood Pressure 141/72 05/09/2023 2:24 PM CDT Pulse 77 05/09/2023 2:22 PM CDT Temperature 36.8 C (98.2 F) 01/21/2023 10:30 PM BOAT RENTAL CLERK Respiratory Rate 10 05/09/2023 2:22 PM CDT Oxygen Saturation 97% 05/09/2023 2:22 PM CDT Inhaled Oxygen Concentration - - Weight 65.8 kg (145 lb) 05/09/2023 2:22 PM CDT Height 162.6 cm (5' 4) 01/21/2023 2:46 PM BOAT RENTAL CLERK Body Mass Index 24.89 01/21/2023 2:46 PM BOAT RENTAL CLERK Plan of Treatment Health Maintenance Due Date Last Done Comments DTAP/TDAP/TD VACCINES (1 - Tdap) 1962 PNEUMOCOCCAL VACCINE 50+ YEA RS (1 of 2 - PCV) 1962 ZOSTER VACCINE (1 of 2) 1993 RSV VACCINE (60+ or ) (1 - 1-dose 75+ series) 2018 INFLUENZA VACCINE (#1) 2025 COVID-19 Vaccine (4 - 2024-2 6 season) 2025 02/02/2022, 07/25/2021, 02/13/2021, Additional history exists OSTEOPOROSIS SCREENING 06/11/2026 06/11/2021, 2020 Insurance MEDICARE PART A AND B MEDICARE PART A AND B
--- OUTSIDE RECORDS SUMMARY | 2025-09-10 16:24 | XMS_ITS | Clinical Summary ---
Author Organization [facility] Address [address] [place] [address] Phone Care Team Providers Care Psychiatric Clinician Name Role Phone Unavailable Primary Care Provider Unavailabl e Allergies Active Allergy Reactions Criticality Noted Date Comments Atenolol Hives 08/07/2021 Carvedilol Nausea 08/07/2021 Diltiazem Rash 08/07/2021 Hydralazine Hives 08/07/2021 Metoprolol Hives 08/07/2021 Social History Tobacco Use Types Packs/Day Years Used Date Smoking Tobacco: Never Comments Unknown Sex and Gender Information Value Date Recorded Sex Assigned at Not on file Legal Sex Female 10:21 AM CDT Gender Identity Not on file Sexual Orientation Not on file Plan of Treatment Not on file Insurance MEDICARE [facility]
--- OUTSIDE RECORDS SUMMARY | 2025-09-10 16:24 | XMS_ITS ---
Author Organization [facility] [address] Address [address] [place] [address] Care Team Providers Care Dental Hygienist Mobile Coordinator Name Role Phone Dennis Law MD Unavailable Crystal Gaitan MD PhD Unavaila ble Sherrill Traylor MD Unavailable Marilu Nation NP Unavailable Manuel Ballard MD Primary Care Provide r Active Problems Problem Noted Date Diagnosed Date Gastroparesis 08/11/2024 Severe malnutrition 08/10/2024 Solitary pulmonary nodule 08/08/2023 History of partial mastectomy of left breast Abdominal pain 04/21/2023 Assessment & Plan (04/21/2023 12:59 PM CDT): Patient recently has been having abdominal pain, nausea, and vomiting. She was seen in the ER March 2023 for these complaints. Labs with normal LFTs and lipase. CT scan with no acute intra-abdominal process, contracted gallbladder with slight hyperenhancement of the gallbladder wall, findings are nonspecific. -avoid NSAIDS -PPI daily -schedule EGD -The risks (risks of bleeding, infection, perforation requiring surgery, missed polyps/cancer, dental injury, aspiration pneumonia, anesthesia complications such as drug reaction and cardiopulmonary complications including rare chance of ), benefits, and alternatives of the planned procedure were explained to the patient who understands and consents to having procedure done. Abnormal finding on GI tract imaging 04/21/2023 Assessment & Plan (04/21/2023 1:00 PM CDT): CT scan 03/2023 with no acute intra-abdominal process, contracted gallbladder with slight hyperenhancement of the gallbladder wall, findings are nonspecific. -we will order HIDA scan further evaluation Diverticulitis 04/21/2023 Assessment & Plan (04/21/2023 1:18 PM CDT): Per patient diagnosed with diverticulitis at [facility] a few months ago and was treated with antibiotics. -obtain prior records from [facility] -high-fiber diet -avoid seeds, nuts, and popcorn Gastroesophageal reflux disease without esophagi tis 04/21/2023 Assessment & Plan (04/21/2023 1:18 PM CDT): Chronic GERD, has failed multiple PPIs. -start omeprazole 20 mg p.o. 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, estrogen receptor positive 03/19/2021 Cancer Staging:Pathologic stage from 04/08/2021:Stage IA(pT1a, pN0, cM0, G2, ER+, MN+, HER2-) - Signed by Sherrill Traylor MD on 05/28/2021 Clinical: Unsigned Bilateral plantar fasciitis 04/04/2019 Seasonal allergies 04/04/2019 Wears glasses 04/04/2019 Sinus tachycardia 01/01/2019 PVC's (premature ventricular contractions) 12/25 Nonsmoker 03/07/2018 Hypercholesteremia 01/29/2018 Palpitations 01/24/2018 KOFI (obstructive sleep apnea) 10/13/2017 Essential hypertension 09/09/2016 Overview (03/03/2017): Essential hypertension Disorder of thyroid 09/09/2016 Overview (03/03/2017): Thyroid disease Anxiety 09/09/2016 Overview (03/03/2017): Anxiety Asthma 09/09/2016 Overview (03/03/2017): Uncomplicated asthma, unspecified asthma severity Pulmonary fibrosis Current Treatment and Therapy Plans No current plan information found. Past Treatment and Therapy Plans No past plan information found. Radiation Treatments * Course C1 L BREAST 202006/29/2021 - 07/03/2021 Treatment Period Energy Fraction Dose Fractions Total Dose Plans Planned LEFT BREAST 06/29/2021 - 07/03/2021 520 5 / 2,600 Reference Points Delivered brs dpv 06/29/2021 - 07/03/2021 2,600 Lifetime Dose Tracking * Chemical Lifetime Dose Automatic Entry Manual Entr y DLP 443 mGycm 443 mGycm 0 mGycm Resolved Problems Problem Noted Date Diagnosed Date Resolved Date Vomiting without nausea, uns pecified vomiting type 08/09/2024 08/11/2024
--- OUTSIDE RECORDS SUMMARY | 2025-09-10 16:24 | XMS_ITS | Encounter Summary ---
Author Organization [facility] Address [address] [address] Care Team Providers Care Surgical Consultant Name Role Phone Hector Licea DO Primary Care Provider Hector Licea DO Primary Care Provider No, Physician Primary Care Provider Barak Christina MD Primary Care Provider [phone] No, Physician Primary Care Provider [phone] No, Physician Primary Care Provider [phone] Dennis Law MD Unavailable Barak Christina MD Primary Care Provider Crystal Gaitan MD PhD Unavaila ble Sherrill Traylor MD Unavailable Tenisha Juan MD Primary Care Provider Susan Bess Primary Care Provider [phone] No, Physician Primary Care Provider [phone] Marilu Nation NP Unavailable Manuel Ballard MD Primary Care Provide r Encounter Details Date Type Department Care Team (Late st Contact Info) Description 12/20/2016 Orders Only [facility]Helga [facility] [place] [address] Social History Tobacco Use Types Packs/Day Years Used Date Smoking Tobacco: Never Alcohol Use Standard Drinks/Week Comments No 0 (1 standard drink = 0.6 oz pur e alcohol) Comments Unknown Sex and Gender Information Value Date Recorded Sex Assigned at Not on file 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 documented as of this encounter Care Teams Surgical Consultant Relationship Specialty Start Date End Date Hector Licea DO PCP - General 02/25/17 01/26/21 Hector Licea DO PCP - General 01/14/16 02/24/17 No, Physician PCP - General 01/27/21 03/25/21 Barak Christina MD PCP - General 03/26/21 04/05/21 No, Physician PCP - General 04/06/21 04/07/21 No, Physician PCP - General 04/08/21 05/11/21 Barak Christina MD PCP - General 05/12/21 02/16/23 Tenisha Juan MD [address] [facility] [place] [address] PCP - General Internal Medicine 02/17/23 04/20/23 Susan Bess PA [address] [facility] [place] [address] PCP - General Family Medicine 04/21/23 08/02/23 No, Physician PCP - General 08/03/23 01/26/24 Manuel Ballard MD [address] [facility] [address] [place] [address] PCP - General Internal Medicine 01/27/24 Dennis Law MD [address] [facility], [address] [address] Consulting Physician Medical Oncology 04/22/21 Crystal Gaitan MD PhD [address] [facility], [address] [address] Surgeon Surgical Oncology 05/28/21 Sherrill Traylor MD [address] [place] [address] Radiation Oncologist Radiation Oncology 07/16/21 Marilu Nation NP [address] [facility] [place] [address] Nurse Practitioner Gastroenterology 10/26/23 documented as of this encounter
--- OUTSIDE RECORDS SUMMARY | 2025-09-10 16:24 | XMS_ITS | Clinical Summary ---
Author Organization [facility] Address [address] [place] [address] Care Team Providers Care Retention Manager Name Role Phone Unavailable Primary Care Provider Unavailabl e Source Comments [facility],non-owned Affiliates and Associated Physician Practices is amultiple site organization consisting of ambulatory clinics and hospital sitesin [place], [place], [place] and [place]. This disclosure is being madepursuant to the Care Everywhere program and may not contain all information available regarding this patient. Last updated 18.[facility] Allergies Active Allergy Reactions Criticality Noted Date Comments Metoprolol Other 06/18/2022 SOB Social History Tobacco Use Types Packs/Day Years Used Date Smoking Tobacco: Never Alcohol Use Standard Drinks/Week Comments Never 0 (1 standard drink = 0.6 oz pur e alcohol) Comments Unknown Sex and Gender Information Value Date Recorded Sex Assigned at Not on file Legal Sex Female 10:38 AM CDT Gender Identity Not on file Sexual Orientation Not on file Last Filed Vital Signs Vital Sign Reading Time Taken Comments Blood Pressure 173/107 06/18/2022 4:37 PM CDT Pulse 108 06/18/2022 4:37 PM CDT Temperature 36.7 C (98 F) 06/18/2022 4:37 PM CDT Respiratory Rate 18 06/18/2022 4:37 PM CDT Oxygen Saturation 98% 06/18/2022 4:37 PM CDT Inhaled Oxygen Concentration - - Weight 72.6 kg (160 lb) 06/18/2022 4:37 PM CDT Height 157.5 cm (5' 2) 06/18/2022 4:37 PM CDT Body Mass Index 29.26 06/18/2022 4:37 PM CDT Plan of Treatment Health Maintenance Due Date Last Done Comments BONE DENSITY TESTING 1945 DTAP/TDAP/TD VACCINES (1 - Tdap) 1962 PNEUMOCOCCAL VACCINE 50+ (1 of 1 - PCV) 1993 ZOSTER VACCINE (1 of 2) 1993 Respiratory Syncytial Virus (RSV) Vaccine Pt: or over 60 yrs (1 - 1-dose 75+ series) 2018 DEPRESSION SCREENING 11/28/2024 COVID-19 VACCINE ( - 2024- season) 2025 02/02/2022, 07/25/2021, 02/13/2021, Additional history exists INFLUENZA VACCINE (#1) 2025 08/04/2021, 2020 HEPATITIS B VACCINE Aged Out No longe r eligible based on patient's age to complete this topic HIB VACCINE Aged Out No longer eligi ble based on patient's age to complete this topic HPV VACCINE Aged Out No longer eligi ble based on patient's age to complete this topic MENINGOCOCCAL (Group B) VACCINE SHARED DECISION-MAKING Aged Out No longer eligible based on patient's age to complete this topic MENINGOCOCCAL GROUPS A/C/Y/W VACCINE Aged Out No longer eligible based on patient's age to complete this topic Insurance [facility] MEDICARE MEDICARE
--- OUTSIDE RECORDS SUMMARY | 2025-09-10 16:24 | XMS_ITS | Data Portability ---
Author Organization [facility] Address [address] [place] [address] Assessment No assessment recorded. 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 Procedures None recorde d. Surgeries None recorde d. Imaging None recorde d. Medication Orders None recorde d. Patient TargetsNo targets recorded. Patient Instructions Encounter Date Encounter Id Patient Instructions Last Modified By Organization Details Last Modified Time 09/03/2020 [id number] Reviewed the following recommendations: -Stay home and separate from others as much as possible. -Monitor your symptoms and seek medical attention for trouble breathing, persistent chest pain, confusion, or bluish lips or face. -Wear a mask if you must be around other people. -Wash your hands often for 20 seconds with soap and water and clean high-touch surfaces daily -You may discontinue home isolation if your symptoms are improving, it has been 7 days since symptoms started, and you have been fever free for at least 3 days. [email or web address] Not available 09/03/2020 15:29:14 Reason for Referral None Reported. 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 A negat maggie resul t does not precl ude the possi bilit y of 2019- nCoV infec tion since the adequ acy of sampl e colle ction and/o r low viral burde n may resul t in the prese nce of viral nucle ic acids level s below the william tical sensi tivit y of this test metho d. 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 This test is only autho rized for the durat ion of the decla ratio n and the circu mstan garrick that exist to justi fy the autho rizat ion of the emerg ency use of in vitro diagn ostic tests for the detec tion of SARS- CoV-2 virus and/o r diagn osis of COVID -19 infec tion under secti on 564 (b) (1) of the Act. 11 U.S.C . 360bb b-3 (b) (1), unles s the autho rizat ion is termi nated or revok ed soone r. 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 This testi ng was perfo rmed in the [facility] [place] [place] [address] (CLIA Licen se #[id number], CAP #[id number], AU-ID #[id number]). 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, respi rator y speci men covidcom6 Facts heet for healt hcare provi ders: https ://ww w.fda .gov/ media /1362 56/do wnloa d Facts heet for patie nts: https ://ww w.fda .gov/ media /1362 57/do wnloa d Not Available [facility] ([facility]) [address] [place], [address], 09/05/2020 06:37:48 06/18/20 24 06/20/2024 JULY (anti nucle ar antib odies ) titer + patte rn, ifa, serum antinuclear antibodies, ifa Negati ve Negat maggie <1:80 Borde rline 1:80 Posit maggie >1:80 ICAP nomen marcelletnita re: AC-0 For more infor matearl n about Hep-2 cell patte rns use ANApa ttern s.org , the offic ial websi te for the Inter natio nal Conse nsus on Antin uclea r Antib maria (JULY) Patte rns (ICAP ). Perfo rmed at: [address] [address] Lab Direc tor: Sander puga PhD, Phone : [phone] Not Available Not Available 09/03/2025 04:57:05 06/18/20 24 06/19/2024 ccp (cycl ic citru llina didier pepti de) iga+i gg, serum ccp antibodies IgG/IgA text: 0-19 Negat maggie <20 Weak posit maggie 20 - 39 Moder ate posit maggie 40 - 59 Stron g posit maggie >59 Perfo rmed at: [address] [address] Lab Direc tor: Sander puga PhD, Phone : [phone] Not Available Not Available 09/03/2025 04:57:05 06/18/20 24 06/18/2024 ESR (eryt hocyt e sedim entat ion rate) , blood erythrocyte sedimentatio n rate 28 mm/HR text: 0-20 high Not Available Not Available 09/03/2025 04:57:05 06/18/20 24 06/18/2024 C react maggie prote in, QN, serum or plasm a C-reactive protein 0.33 mg/dL text: 0.0-0. 5 Not Available Not Available 09/03/2025 04:57:05 06/18/20 24 06/18/2024 rf (rheu matoi d facto r), serum rf <8.6 text: 0.0-11 .9 Not Available Not Available 09/03/2025 04:57:05 11/16/20 21 11/16/2021 PFT, pleth ysmog ingris No observ ation record ed. [email or web address] [facility] [address] [place], [address], 11/16/2021 17:42:20 Result Notes None recorded. Medical Equipment None Reported. Medications Name Sig Start Date Stop Date Status Note LastModified by Organization Details LastModified Time amoxicillin 500 mg capsule TAKE 1 CAPSULE BY MOUTH EVERY 8 HOURS 08/31 completed Not Available Not Available Not Available clonidine HCl 0.1 mg tablet TAKE 1 TABLET BY MOUTH TWICE A DAY active Not Available Not Available No t Available cetirizine 10 mg tablet TAKE 1 TABLET BY MOUTH EVERY DAY active Not Available Not Available No t Available ofloxacin 0.3 % eye drops PLEASE SEE ATTACHED FOR DETAILED DIRECTION S active Not Available Not Available No t Available amiodarone 200 mg tablet TAKE 1 TABLET BY MOUTH EVERY DAY active Not Available Not Available No t Available citalopram 10 mg tablet TAKE 1 TABLET BY MOUTH EVERY DAY active Not Available Not Available No t Available lisinopril 20 mg tablet TAKE 1 TABLET BY MOUTH TWICE A DAY active Not Available Not Available No t Available ciprofloxac in 250 mg tablet TAKE 1 TABLET BY MOUTH EVERY 12 HOURS FOR 7 DAYS 08/31 completed Not Available Not Available Not Available amlodipine 5 mg tablet TAKE 1 TABLET BY MOUTH EVERY DAY AT NIGHT active Not Available Not Available No t Available liothyronin e 5 mcg tablet TAKE 1 TABLET BY MOUTH TWICE A DAY active Not Available Not Available No t Available levothyroxi ne 75 mcg tablet TAKE 1 TABLET BY MOUTH EVERY DAY IN THE MORNING active Not Available Not Available No t Available metoclopram lauryn 5 mg tablet TAKE 1 TABLET (5 MG TOTAL) BY MOUTH 2 (TWO) TIMES A DAY NEEDED (NAUSEA AND VOMITING) active Not Available Not Available No t Available exemestane 25 mg tablet TAKE 1 TABLET (25 MG TOTAL) BY MOUTH DAILY. active Not Available Not Available No t Available levothyroxi ne 50 mcg tablet TAKE 1 TABLET BY MOUTH EVERY DAY active Not Available Not Available No t Available pantoprazol e 40 mg tablet,hui yed release TAKE 1 TABLET BY MOUTH 2 TIMES A DAY BEFORE BREAKFAST AND DINNER. active Not Available Not Available No t Available clonazepam 2 mg tablet TAKE 1 TABLET BY MOUTH THREE TIMES A DAY active Not Available Not Available No t Available hydrochloro thiazide 25 mg tablet TAKE 1 TABLET BY MOUTH EVERY DAY IN THE MORNING active Not Available Not Available No t Available metoprolol succinate ER 25 mg tablet,exte nded release 24 hr TAKE 1 TABLET BY MOUTH EVERY DAY IN THE EVENING active Not Available Not Available No t Available methylpredn isolone 4 mg tablets in a dose pack TAKE 6 TABLETS ON DAY 1 DIRECTED ON PACKAGE AND DECREASE BY 1 TAB EACH DAY FOR A TOTAL OF 6 DAYS active Not Available Not Available No t Available amoxicillin 875 mg-potassiu m clavulanate 125 mg tablet TAKE 1 TABLET BY MOUTH TWICE A DAY 08/31 completed Not Available Not Available Not Available amoxicillin 500 mg-potassiu m clavulanate 125 mg tablet TAKE 1 TABLET BY MOUTH EVERY 12 HOURS FOR 10 DAYS 08/31 completed Not Available Not Available Not Available Vitals Date Recorded Body height Oxygen saturation Oxygen saturation in Arterial blood by Pulse oximetry Pain severity - 0-10 verbal numeric rating [Score] - Reported Heart rate Respiratory rate Body temperature Body mass index (BMI) Body weight Systolic And Diastolic Provider Name and Address Organization Details Last Updated DateTime 5 157.48 cm 98 % 98 % 0 90 /min 18 /min 97.9 [degF] 23.2 kg/m2 63412.2 3 g 184/96 mm[Hg] Vanesa Holliday LPN [place] - [facility] 5 12:49:46 Social History Question Answer Notes LastModified by Organizat ion Details LastModified Time What Was The Date Of Your Most Recent Tobacco Screening? 09/03/2025 [email or web address] Information not available 09/03/2025 Sex: Female Functional Status None recorded. Mental Status None recorded. Family History Nothing Reported. Medical History No medical history recorded. Gynecological HistoryNo gynecological history recorded. Obstetrics History GPAL:G 0 P 0 0 0 0 Past Encounters Encounter ID Performer Location Encounter Start Date Encounter Closed Date Diagnosis/Indication Diagnosis SNOMED-CT Code Diagnosis ICD10 Code Diagnosis IMO Codes Diagnosis Note [id number] LILY Kate [address] [place] [address] 09/03/2020 15:06:05 09/04/2020 08:19:37 Viral screening 118877599 Z11.59 Health Concerns Section Related Observation LastModified by Organization Detai ls LastModified Time None Recorded Concern Status LastModified by Organization Details LastModified Time None Recorded Advance Directives Directive None Recorded Payers Insurance Date Sequence Insurance Name Policy Number Policy Morgan Covered Member ID Morgan Member ID Guarantor Name 09/03/2020 2 [employer] (MEDICARE SUPPLEMENT) Meryl Chavis [id number] Meryl Chavis 09/04/2020 [place]Q Kristin Chavis [id number] Meryl Chavis 09/03/2020 1 [place] Kristin Chavis [id number] Meryl Chavis 07/04/2025 1 [place] rKistin Chavis [id number] Meryl Chavis Notes Date Note Type Note Provider Name and Address Organization Details Recorded Time 09/03/2020 text/html COVID ScreeningReported by PatientHPIFor onset/duration of fever, patient reportsno fever. For associated symptoms, patient reportsno coughandno shortness of breath. For comorbidities, patient reportsage greater than 65 years oldandother comorbidities. COVID-19 Symptoms March 2020Reported by PatientUpper Respiratory SymptomsFor covid-19 signs and symptoms, patient reportscough resolved,fever resolved,shortness of breath resolved,chills resolved,repeated shaking with chills resolved,muscle pain resolved,headache resolved,sore throat resolved,loss of taste or smell resolved,vomiting or diarrhea resolved,fatigue resolved, andanorexia resolved. For associated symptoms, patient reportsno sputum production,no wheezing,no runny nose,no vomiting,no diarrhea,no body aches,no nausea,no change in mental status,no hypotension, andno tachycardia.ROS as noted in the HPI pt denies symptoms but wants symptoms HUBERT VARGAS NP Attn: Accounting,[address] [facility], [place], [address], [place] - [facility] 09/03/2020 15:29:47 OBGyn Episode No OBEpisode recorded.
--- OUTSIDE RECORDS SUMMARY | 2025-09-10 16:24 | XMS_ITS | Encounter Summary ---
Author Organization [facility] Address [address] [place] [address] Phone Care Team Providers Care Credit Clerk Name Role Phone Dennis Law MD Unavailable Barak Christina MD Primary Care Provider [phone] Crystal Gaitan MD PhD Unavaila ble Sehrrill Traylor MD Unavailable [phone] Tenisha Juan MD Primary Care Provider Susan Bess Primary Care Provider [phone] No, Physician Primary Care Provider [phone] Marilu Nation NP Unavailable Manuel Ballard MD Primary Care Provide r Encounter Details Date Type Department Care Team (Latest Contact Info) Description 09/21/2021 Orders Only [facility] Scanning, Provider Social History Tobacco Use Types Packs/Day Years Used Date Smoking Tobacco: Never Smokeless Tobacco: Never Alcohol Use Standard Drinks/Week Comments No 0 (1 standard drink = 0.6 oz pur e alcohol) AUDIT-C Answer Date Recorded Q1: How often do you have a drink containing alc ohol? 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 Gender Identity Not on file Sexual Orientation Not on file documented as of this encounter Plan of Treatment Not on file documented as of this encounter Procedures Procedure Name Priority Date/Time Associated Diagnosis Comments PULMONARY - RESULT SCAN 02/09/2022 CARDIOLOGY DOCUMENT SCAN 09/21/2021 documented in this encounter Results * PULMONARY - RESULT SCAN (02/09/2022) Anatomical Region Laterality Modality Other us Provider Scanning Edited Result - Final * SCAN - CARDIOLOGY (09/21/2021) Anatomical Region Laterality Modality Other us Provider Scanning CV CARDIAC SERVICES PROCEDURES Final Result documented in this encounter Visit Diagnoses Not on filedocumented in this encounter Additional Health Concerns Infection Onset Date Last Indicated Resolved Time COVID: Suspected 12/24/2022 12/24/2022 12/24/2022 7:05 PM RN TEACHER documented as of this encounter Care Teams Credit Clerk Relationship Specialty Start Date End Date Barak Christina MD [address] [facility], [address] [address] PCP - General 05/12/21 02/16/23 Tenisha Jaun MD [address] [place] [address] PCP - General Internal Medicine 02/17/23 04/20/23 Susan Bess PA [address] [place] [address] PCP - General Family Medicine 04/21/23 08/02/23 No, Physician PCP - General 08/03/23 01/26/24 Manuel Ballard MD [address] [facility] [address] [place] [address] PCP - General Internal Medicine 01/27/24 Dennis Law MD [address] [facility], [address] [address] Consulting Physician Medical Oncology 04/22/21 Crystal Gaitan MD PhD [address] [facility], [address] [address] Surgeon Surgical Oncology 05/28/21 Sherrill Traylor MD [address] [place] [address] Radiation Oncologist Radiation Oncology 07/16/21 Marilu Nation NP Nurse Practitioner Gastroenterology 10/26/23 documented as of this encounter
--- OUTSIDE RECORDS SUMMARY | 2025-09-10 16:24 | XMS_ITS | Encounter Summary ---
Author Organization [facility] Address [address] [place] [address] Phone Care Team Providers Care Cartridge Filler Name Role Phone Dennis Law MD Unavailable Barak Christina MD Primary Care Provider [phone] Crystal Gaitan MD PhD Unavaila ble Sherrill Traylor MD Unavailable [phone] Tenisha Juan MD Primary Care Provider Susan Bess Primary Care Provider [phone] No, Physician Primary Care Provider [phone] Marilu Nation NP Unavailable Manuel Ballard MD Primary Care Provide r Encounter Details Date Type Department Care Team (Latest Contact Info) Description 10/09/2021 Orders Only [facility] Scanning, Provider Social History Tobacco Use [...] on file 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 Gender Identity Not on file Sexual Orientation Not on file documented as of this encounter Plan of Treatment Not on file documented as of this encounter Procedures Procedure Name Priority Date/Time Associated Diagnosis Comments SCAN - RADIOLOGY/IMAGING 10/09/2021 CARDIOLOGY DOCUMENT SCAN 10/09/2021 documented in this encounter Results * SCAN - RADIOLOGY/IMAGING (10/09/2021) Anatomical Region Laterality Modality Other us Provider Scanning Edited Result - Final * SCAN - CARDIOLOGY (10/09/2021) Anatomical Region Laterality Modality Other us Provider Scanning CV CARDIAC SERVICES PROCEDURES Final Result documented in this encounter Visit Diagnoses Not on filedocumented in this encounter Additional Health Concerns Infection Onset Date Last Indicated Resolved Time COVID: Suspected 12/24/2022 12/24/2022 12/24/2022 7:05 PM MORTGAGE LENDER documented as of this encounter Care Teams Cartridge Filler Relationship Specialty [place] [address] [place] [address] MEDICAL ONCOLOGY, [address] [address] PCP - General 05/12/21 02/16/23 Tenisha Juan MD [address] [place] [address] PCP - General Internal Medicine 02/17/23 04/20/23 Susan Bess PA [address] [place] [address] PCP - General Family Medicine 04/21/23 08/02/23 No, Physician PCP - General 08/03/23 01/26/24 Manuel Ballard MD [address] [facility] [address] [place] [address] PCP - General Internal Medicine 01/27/24 Dennis Law MD [address] [facility], [address] [address] Consulting Physician Medical Oncology 04/22/21 Crystal Gaitan MD PhD [address] [facility], [address] [address] Surgeon Surgical Oncology 05/28/21 Sherrill Traylor MD [address] [place] [address] Radiation Oncologist Radiation Oncology 07/16/21 Marilu Nation NP Nurse Practitioner Gastroenterology 10/26/23 documented as of this encounter
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
--- OUTSIDE RECORDS SUMMARY | 2025-09-10 16:24 | XMS_ITS | Encounter Summary ---
Author Organization [facility] Address [address] [place] [address] Phone Care Team Providers Care Emergency Care Attendant Name Role Phone Dennis Law MD Unavailable Crystal Gaitan MD PhD Unavaila ble Sherrill Traylor MD Unavailable [phone] Marilu Nation NP Unavailable Manuel Ballard MD Primary Care Provide r Encounter Details Date Type Department Care Team (Latest Contact Info) Description 03/09/2024 Orders Only [facility] Scanning, Provider Social History Tobacco Use Types Packs/Day Years Used Date Smoking Tobacco: Never Smokeless Tobacco: Never Alcohol Use Standard Drinks/Week Comments No 0 (1 standard drink = 0.6 oz pur e alcohol) AUDIT-C Answer Date Recorded Frequency of Alcohol Consumption Not on file 09/28/2023 Q2: How many drinks containi ng alcohol do you have on a typical day when you are drinking? 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 Gender Identity Not on file Sexual Orientation Not on file documented as of this encounter Plan of Treatment Not on file documented as of this encounter Procedures Procedure Name Priority Date/Time Associated Diagnosis Comments SCAN - RADIOLOGY/IMAGING 03/09/2024 documented in this encounter Results * SCAN - RADIOLOGY/IMAGING (03/09/2024) Anatomical Region Laterality Modality Other us Provider Scanning Final Result documented in this encounter Visit Diagnoses Not on filedocumented in this encounter Care Teams Emergency Care Attendant Relationship Specialty Start Date End Date Manuel Ballard MD [address] [facility] [address] [place] [address] PCP - General Internal Medicine 01/27/24 Dennis Law MD [address] [facility], [address] [address] Consulting Physician Medical Oncology 04/22/21 Crystal Gaitan MD PhD [address] [facility], [address] [address] Surgeon Surgical Oncology 05/28/21 Sherrill Traylor MD [address] [facility] [place] [address] Radiation Oncologist Radiation Oncology 07/16/21 Marilu Nation NP [address] [place] [address] Nurse Practitioner Gastroenterology 10/26/23 documented as of this encounter
--- OUTSIDE RECORDS SUMMARY | 2025-09-10 16:24 | XMS_ITS | Encounter Summary ---
Author Organization [facility] Address [address] [place] [address] Phone Care Team Providers Care Burner Tender Name Role Phone Dennis Law MD Unavailable Barak Christina MD Primary Care Provider [phone] Crystal Gaitan MD PhD Unavaila ble Sherrill Traylor MD Unavailable [phone] Tenisha Juan MD Primary Care Provider [phone] Susan Bess Primary Care Provider [phone] No, Physician Primary Care Provider Marilu Nation NP Unavailable Manuel Ballard MD Primary Care Provide r Encounter Details Date Type Department Care Team (Latest Contact Info) Description 09/29/2021 Orders Only [facility] Scanning, Provider [...] on file Legal Sex Female 3:23 AM INSTRUMENTATION 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 Gender Identity Not on file Sexual Orientation Not on file documented as of this encounter Plan of Treatment Not on file documented as of this encounter Procedures Procedure Name Priority Date/Time Associated Diagnosis Comments SCAN - LABS 09/29/2021 documented in this encounter Results * SCAN - LABS (09/29/2021) us Provider Scanning Final Result documented in this encounter Visit Diagnoses Not on filedocumented in this encounter Additional Health Concerns Infection Onset Date Last Indicated Resolved Time COVID: Suspected 12/24/2022 12/24/2022 12/24/2022 7:05 PM INSTRUMENTATION TECH documented as of this encounter Care Teams Burner Tender Relationship Specialty Start Date End Date Barak Christina MD [address] [facility], [address] [address] PCP - General 05/12/21 02/16/23 Tenisha Juan MD [address] [place] [address] PCP - General Internal Medicine 02/17/23 04/20/23 Susan Bess PA [address] [place] [address] PCP - General Family Medicine 04/21/23 08/02/23 No, Physician PCP - General 08/03/23 01/26/24 Manuel Ballard MD [address] [place] [address] PCP - General Internal Medicine 01/27/24 Dennis Law MD [address] [facility], [address] [address] Consulting Physician Medical Oncology 04/22/21 Crystal Gaitan MD PhD [address] [facility], [address] [address] Surgeon Surgical Oncology 05/28/21 Sherrill Traylor MD [address] [place] [address] Radiation Oncologist Radiation Oncology 07/16/21 Marilu Nation NP Nurse Practitioner Gastroenterology 10/26/23 documented as of this encounter
--- OUTSIDE RECORDS SUMMARY | 2025-09-10 16:24 | XMS_ITS | Patient Health Record ---
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 Problem Hypo-osmolality and or hyponatremia (531028614) Hypo-osmolality and hyponatremia (E87.1) Active confirmed Problem Anxiety disorder (417328958) Anxiety disorder, unspecified (F41.9) Active confirmed Problem Pain of ear (finding) (847092364) Otalgia, unspecified ear (H92.09) Active confirmed Problem Essential hypertension (31230241) Essential (primary) hypertension (I10) Active confirmed Problem Age-related osteoporosis (120630095) Age-related osteoporosis without current pathological fracture (M81.0) Active confirmed Problem Chronic kidney disease stage 2 (465321593) Chronic kidney disease, stage 2 (mild) (N18.2) Active confirmed Problem Thyroid function tests abnormal (018568565) Abnormal results of thyroid function studies (R94.6) Active confirmed Problem Gastroesophageal reflux disease with esophagitis (disorder) (401122823) Gastro-esophagea l reflux disease with esophagitis, without bleeding (K21.00) Active confirmed Encounters Encounter Location Date Provider Diagnosis [facility] [address] [facility] [address] [place] [address] 09/21/2024 Eloy Flood Chronic kidney disease, stage 3 unspecified N18.30 ; Chronic kidney disease, stage 2 (mild) N18.2 ; Essential (primary) hypertension I10 ; Anxiety disorder, unspecified F41.9 ; Gastro-esophageal reflux disease with esophagitis, without bleeding K21.00 and Hypothyroidism, unspecified E03.9 [facility] [address] [place] [address] 12/12/2024 Eloy Flood Chronic kidney disease, stage 2 (mild) N18.2 ; Hypokalemia E87.6 ; Other polyuria R35.89 and Essential (primary) hypertension I10 [facility] [address] [place] [address] 01/30/2025 Eloy Flood Chronic kidney disease, stage 3 unspecified N18.30 ; Essential (primary) hypertension I10 ; Anxiety disorder, unspecified F41.9 ; Gastro-esophageal reflux disease with esophagitis, without bleeding K21.00 ; Hypothyroidism, unspecified E03.9 and Abnormal results of thyroid function studies R94.6 [facility] [address] [place] [address] 08/27/2025 Eloy Flood Chronic kidney disease, stage [...] fracture M81.0 and Otalgia, unspecified ear H92.09 [facility] [address] [place] [address] 12/14/2024 Eloy Flood [facility] [address] [place] [address] 09/21/2024 Eloy Flood Assessments Encounter Date Diagnosis (ICD Code) Assessment Notes Treatment Notes Treatment Clinical Notes Section Notes 09/21/2024 Chronic kidney disease, stage 2 (mild) (ICD-10 - N18.2) 09/21/2024 Chronic kidney disease, stage 3 unspecified (ICD-10 - N18.30) 12/12/2024 Hypokalemia (ICD-10 - E87.6) 12/12/2024 Chronic kidney disease, stage 2 (mild) (ICD-10 - N18.2) 01/30/2025 Chronic kidney disease, stage 3 unspecified (ICD-10 - N18.30) 08/27/2025 Chronic kidney disease, stage 2 (mild) (ICD-10 - N18.2) 08/27/2025 Essential (primary) hypertension (ICD-10 - I10) 12/12/2024 Other polyuria (ICD-10 - R35.89) 01/30/2025 Essential (primary) hypertension (ICD-10 - I10) 09/21/2024 Essential (primary) hypertension (ICD-10 - I10) 09/21/2024 Anxiety disorder, unspecified (ICD-10 - F41.9) 01/30/2025 Anxiety disorder, unspecified (ICD-10 - F41.9) 12/12/2024 Essential (primary) hypertension (ICD-10 - I10) 08/27/2025 Anxiety disorder, unspecified (ICD-10 - F41.9) 01/30/2025 Gastro-esophageal reflux disease with esophagitis, without bleeding (ICD-10 - K21.00) 09/21/2024 Gastro-esophageal reflux disease with esophagitis, without bleeding (ICD-10 - K21.00) 08/27/2025 Gastro-esophageal reflux disease with esophagitis, without bleeding (ICD-10 - K21.00) 09/21/2024 Hypothyroidism, unspecified (ICD-10 - E03.9) 01/30/2025 Hypothyroidism, unspecified (ICD-10 - E03.9) 08/27/2025 Hypothyroidism, unspecified (ICD-10 - E03.9) 08/27/2025 Abnormal results of thyroid function studies (ICD-10 - R94.6) 01/30/2025 Abnormal results of thyroid function studies (ICD-10 - R94.6) 08/27/2025 Hypo-osmolality and hyponatremia (ICD-10 - E87.1) 08/27/2025 Syndrome of inappropriate secretion of antidiuretic hormone (ICD-10 - E22.2) 08/27/2025 Age-related osteoporosis without current pathological fracture (ICD-10 - M81.0) 08/27/2025 Otalgia, unspecified ear (ICD-10 - H92.09) Plan Of Treatment Next Appt Details Provider Name:Eloy Flood , 09/25/2025 04:00:00 PM, [address], [facility] [address], [place], [address],
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
[2025-09-10] MEDS: GABAPENTIN 300 MG CAPSULE PO (17:00)
--- OUTSIDE RECORDS SUMMARY | 2025-09-10 17:30 | XMS_ITS | Encounter Summary ---
Author Organization [facility] Address [address] [place] [address] Phone Care Team Providers Care Stencil Typist Name Role Phone Dennis Law MD Unavailable Crystal Gaitan MD PhD Unavaila ble Sherrill Traylor MD Unavailable [phone] Marilu Nation NP Unavailable Manuel Ballard MD [...] file Legal Sex Female 3:23 AM RN ANGIOGRAPHY Gender Identity Not on file Sexual Orientation [...] on filedocumented in this encounter Care Teams Stencil Typist Relationship Specialty Start Date End Date Manuel Ballard MD [address] [facility] [address] [place] [address] PCP - General Internal Medicine 01/27/24 Dennis Law MD [address] [facility] MEDICAL ONCOLOGY, [address] [address] Consulting Physician Medical Oncology 04/22/21 Crystal Gaitan MD PhD [address] [facility] MEDICAL ONCOLOGY, [address] [address] Surgeon Surgical Oncology 05/28/21 Sherrill Traylor MD [address] [facility] [place] [address] Radiation Oncologist Radiation Oncology 07/16/21 Marilu Nation NP [address] [place] [address] Nurse Practitioner Gastroenterology 10/26/23 documented as of this encounter
--- OUTSIDE RECORDS SUMMARY | 2025-09-10 17:30 | XMS_ITS | Encounter Summary ---
Author Organization [facility] Address [address] [place] [address] Phone Care Team Providers Care Industrial Engineering Professor Name Role Phone Dennis Law MD Unavailable Barak Christina MD Primary Care Provider [phone] Crystal Gaitan MD PhD Unavaila ble Sherrill Traylor MD Unavailable [phone] Tenisha Juan MD Primary Care Provider Susan Bess Primary Care Provider [phone] No, Physician Primary Care Provider [phone] Marilu Nation NP Unavailable Manuel Ballard MD [...] on file Legal Sex Female 3:23 AM HIDE SALTER Gender Identity Not on file Sexual Orientation [...] COVID: Suspected 12/24/2022 12/24/2022 12/24/2022 7:05 PM HIDE SALTER documented as of this encounter Care Teams Industrial Engineering Professor Relationship Specialty [place] [address] [place] [address] MEDICAL ONCOLOGY, [address] [address] PCP - General 05/12/21 02/16/23 Tenisha Juan MD [address] [place] [address] PCP - General Internal Medicine 02/17/23 04/20/23 Susan Bess PA [address] [place] [address] PCP - General Family Medicine 04/21/23 08/02/23 No, Physician PCP - General 08/03/23 01/26/24 Manuel Ballard MD [address] [facility] [address] [place] [address] PCP - General Internal Medicine 01/27/24 Dennis Law MD [address] MEDICAL ONCOLOGY, [address] [address] Consulting Physician Medical Oncology 04/22/21 Crystal Gaitan MD PhD [address] [facility] MEDICAL ONCOLOGY, [address] [address] Surgeon Surgical Oncology 05/28/21 Sherrill Traylor MD [address] [place] [address] Radiation Oncologist Radiation Oncology 07/16/21 Marilu Nation NP Nurse Practitioner Gastroenterology 10/26/23 documented as of this encounter
--- OUTSIDE RECORDS SUMMARY | 2025-09-10 17:30 | XMS_ITS | Clinical Summary ---
Author Organization [facility] Address [address] [place] [address] Care Team Providers Care Film Mounter Name Role Phone Non-Staff, Provider Primary Care [...] this topic Medical Devices Implanted Type Area Hospice/Home Health Aide Device Identifier Shelf Expiration Date Model / Serial / Lot Plate Lyman Cf Capsule Delivery Dev Implanted:Qty: 1 on 09/13/2023 by Sami Cruz DO at [facility] N/A: Esophagus [employer] 10/08/2024 / [id number] / [id number] Insurance MEDICARE [facility] Advance Directives Documents on File Type Date Recorded Patient Criminal Analyst Expl anation Guardianship - Temporary 09/02/2023 8:04 AM MEENA Blackman cell: [phone] Care Teams Film Mounter Relationship Specialty Start Date End Date Non-Staff, Provider PCP - General UNKNOWN PHYSICIAN SPECIALTY 09/13/23
--- OUTSIDE RECORDS SUMMARY | 2025-09-10 17:30 | XMS_ITS | Encounter Summary ---
Author Organization [facility] Address [address] [place] [address] Phone Care Team Providers Care Concrete Mixer Operator Name Role Phone Dennis Law MD Unavailable Barak Christina MD Primary Care Provider [phone] Crystal Gaitan MD PhD Unavaila ble Sherrill Traylor MD Unavailable [phone] Tenisha Juan MD Primary Care Provider Susan Bess Primary Care Provider [phone] No, Physician Primary Care Provider [phone] Marilu Nation NP Unavailable Manuel Ballard MD [...] on file Legal Sex Female 3:23 AM SILO TENDER Gender Identity Not on file Sexual Orientation [...] COVID: Suspected 12/24/2022 12/24/2022 12/24/2022 7:05 PM SILO TENDER documented as of this encounter Care Teams Concrete Mixer Operator Relationship Specialty Start Date End Date Barak Crhistina MD [address] MEDICAL ONCOLOGY, [address] [address] PCP - General 05/12/21 02/16/23 Tenisha Juan MD [address] [place] [address] PCP - General Internal Medicine 02/17/23 04/20/23 Susan Bess PA [address] [place] [address] PCP - General Family Medicine 04/21/23 08/02/23 No, Physician PCP - General 08/03/23 01/26/24 Manuel Ballard MD [address] [place] [address] PCP - General Internal Medicine 01/27/24 Dennis Law MD [address] MEDICAL ONCOLOGY, [address] [address] Consulting Physician Medical Oncology 04/22/21 Crystal Gaitan MD PhD [address] [facility] MEDICAL ONCOLOGY, [address] [address] Surgeon Surgical Oncology 05/28/21 Sherrill Traylor MD [address] [place] [address] Radiation Oncologist Radiation Oncology 07/16/21 Marilu Nation NP Nurse Practitioner Gastroenterology 10/26/23 documented as of this encounter
--- OUTSIDE RECORDS SUMMARY | 2025-09-10 17:30 | XMS_ITS ---
Author Organization [facility] [address] Address [address] [place] [address] Care Team Providers Care Real Estate Administrator Name Role Phone Dennis Law MD Unavailable [...] CDT): Per patient diagnosed with diverticulitis at [facility] a few months ago and was treated with antibiotics. 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
--- OUTSIDE RECORDS SUMMARY | 2025-09-10 17:30 | XMS_ITS | Clinical Summary ---
Author Organization [facility] [address] Address [address] [place] [address] Care Team Providers Care Rv Technician Name Role Phone Dennis Law MD Unavailable [...] 1 tablet (50 mcg total) by mouth tamping machine operator road forms before breakfast Active clonazePAM (KlonoPIN) 2 mg [...] CDT): Per patient diagnosed with diverticulitis at [facility] a few months ago and was treated with antibiotics. 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 not feeling good, nervous Pulse 98 02/01/2025 1:38 PM NEONATAL SOCIAL WORKER Temperature 36.6 C (97.9 F) 02/01/2025 1:38 PM NEONATAL SOCIAL WORKER Respiratory Rate 18 02/01/2025 1:38 PM NEONATAL SOCIAL WORKER Oxygen Saturation 95% 02/01/2025 1:3 8 PM NEONATAL SOCIAL WORKER Inhaled Oxygen Concentration - - Weight 60.8 kg (134 lb) 02/01/2025 1:38 PM NEONATAL SOCIAL WORKER Height 156.2 cm (5' 1.5) 02/01/2025 1: 38 PM NEONATAL SOCIAL WORKER Body Mass Index 24.91 02/01/2025 1:38 PM NEONATAL SOCIAL WORKER Plan of Treatment Health Maintenance Due Date [...] breast in female, estrogen receptor positive (HCC) rn long term care (current) use of aromatase inhibitors from Last [...] Most Recently Relevant to Health Maintenance Insurance [facility] MEDICARE MEDICARE [facility] MEDICARE [facility] Advance Directives For more information, please contact: [phone] * Full Code (Latest Code Status on File) Date Activated Date Inactivated Comments 08/09/2024 6:57 PM 08/11/2024 8:20 PM Care Teams Rv Technician Relationship Specialty Start Date End Date Manuel Ballard MD [address] [place] [address] PCP - General Internal Medicine 01/27/24 Dennis Law MD [address] [facility]Y, [address] [address] Consulting Physician Medical Oncology 04/22/21 Crystal Gaitan MD PhD [address] [facility] ON[facility]Y, [address] [address] Surgeon Surgical Oncology 05/28/21 Sherrill Traylor MD [address] [place] [address] Radiation Oncologist Radiation Oncology 07/16/21 Marilu Nation NP [address] [place] [address] Nurse Practitioner Gastroenterology 10/26/23
--- OUTSIDE RECORDS SUMMARY | 2025-09-10 17:30 | XMS_ITS | Encounter Summary ---
Author Organization [facility] Address [address] [place] [address] Phone Care Team Providers Care Air Saw Operator Name Role Phone Dennis Law MD Unavailable Barak Christina MD Primary Care Provider [phone] Crystal Gaitan MD PhD Unavaila ble Sherrill Traylor MD Unavailable [phone] Tenisha Juan MD Primary Care Provider [phone] Susan Bess Primary Care Provider No, Physician Primary Care Provider [phone] Marilu Nation NP Unavailable Manuel Ballard MD [...] on file Legal Sex Female 3:23 AM WATCH AND CLOCK MAKER AND REPAIRER Gender Identity Not on file Sexual Orientation [...] COVID: Suspected 12/24/2022 12/24/2022 12/24/2022 7:05 PM WATCH AND CLOCK MAKER AND REPAIRER documented as of this encounter Care Teams Air Saw Operator Relationship Specialty Start Date End Date Barak Christina MD [address] [facility] MEDICAL ONCOLOGY, [address] [address] PCP - General 05/12/21 02/16/23 Tenisha Juan MD [address] [place] [address] PCP - General Internal Medicine 02/17/23 04/20/23 Susan Bess PA [address] [place] [address] PCP - General Family Medicine 04/21/23 08/02/23 No, Physician PCP - General 08/03/23 01/26/24 Manuel Ballard MD [address] [facility] [address] [place] [address] PCP - General Internal Medicine 01/27/24 Dennis Law MD [address] MEDICAL ONCOLOGY, [address] [address] Consulting Physician Medical Oncology 04/22/21 Crystal Gaitan MD PhD [address] [facility] MEDICAL ONCOLOGY, [address] [address] Surgeon Surgical Oncology 05/28/21 Sherrill Traylor MD [address] [place] [address] Radiation Oncologist Radiation Oncology 07/16/21 Marilu Nation NP Nurse Practitioner Gastroenterology 10/26/23 documented as of this encounter
--- OUTSIDE RECORDS SUMMARY | 2025-09-10 17:30 | XMS_ITS | Clinical Summary ---
Author Organization [facility] Address [address] [place] [address] Phone Care Team Providers Care Shank Cementer Hand Name Role Phone Unavailable Primary Care Provider [...] of Treatment Not on file Insurance MEDICARE [facility]
--- OUTSIDE RECORDS SUMMARY | 2025-09-10 17:30 | XMS_ITS | Encounter Summary ---
Author Organization [facility] Address [address] [address] Care Team Providers Care Bpo Specialist Name Role Phone Hector Licea DO Primary Care Provider Hector Licea DO Primary Care Provider No, Physician Primary Care Provider Barak Christina MD Primary Care Provider [phone] No, Physician Primary Care Provider [phone], Physician Primary Care Provider [phone] Dennis Law MD Unavailable Barak Christina MD Primary Care Provider Crystal Gaitan MD PhD Unavaila ble Sherrill Traylor MD Unavailable Tenisha Juan MD Primary Care Provider Susan Bess Primary Care Provider [phone] No, Physician Primary Care Provider [phone] Marilu Nation NP Unavailable Manuel Ballard MD Primary Care Provide r Encounter Details Date Type Department Care Team (Late st Contact Info) Description 12/20/2016 Orders Only [facility] ProviderHelga MD [facility] [place] [address] Social History Tobacco Use Types Packs/Day Years Used Date Smoking Tobacco: Never Alcohol Use Standard Drinks/Week Comments No 0 (1 standard drink = 0.6 oz pur e alcohol) Comments Unknown Sex and Gender Information Value Date Recorded Sex Assigned at Not on file 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 Gender Identity Not on file Sexual Orientation [...] COVID: Suspected 12/24/2022 12/24/2022 12/24/2022 7:05 PM MACHINE WOOD SANDER documented as of this encounter Care Teams Bpo Specialist Relationship Specialty Start Date End Date Hector Licea DO PCP - General 02/25/17 01/26/21 Hector Licea DO PCP - General 01/14/16 02/24/17 No, Physician PCP - General 01/27/21 03/25/21 Barak Christina MD PCP - General 03/26/21 04/05/21 No, Physician PCP - General 04/06/21 04/07/21 No, Physician PCP - General 04/08/21 05/11/21 Barak Christina MD PCP - General 05/12/21 02/16/23 Tenisha Juan MD [address] [facility] [place] [address] PCP - General Internal Medicine 02/17/23 04/20/23 Susan Bess PA [address] [facility] [place] [address] PCP - General Family Medicine 04/21/23 08/02/23 No, Physician PCP - General 08/03/23 01/26/24 Manuel Ballard MD [address] [facility] [address] [place] [address] PCP - General Internal Medicine 01/27/24 Dennis Law MD [address] MEDICAL ONCOLOGY, [address] [address] Consulting Physician Medical Oncology 04/22/21 Crystal Gaitan MD PhD [address] [facility] MEDICAL ONCOLOGY, [address] [address] Surgeon Surgical Oncology 05/28/21 Sherrill Traylor MD [address] [place] [address] Radiation Oncologist Radiation Oncology 07/16/21 Marilu Nation NP [address] [facility] [place] [address] Nurse Practitioner Gastroenterology 10/26/23 documented as of this encounter
--- OUTSIDE RECORDS SUMMARY | 2025-09-10 17:30 | XMS_ITS | Clinical Summary ---
Author Organization [facility] Address [address] [place] [address] Phone Care Team Providers Care Winch Truck Operator Name Role Phone Unavailable Primary Care Provider [...] 36.8 C (98.2 F) 01/21/2023 10:30 PM ENERGY SCHEDULER Respiratory Rate 10 05/09/2023 2:22 PM CDT Oxygen Saturation 97% 05/09/2023 2:22 PM CDT Inhaled Oxygen Concentration - - Weight 65.8 kg (145 lb) 05/09/2023 2:22 PM CDT Height 162.6 cm (5' 4) 01/21/2023 2:46 PM ENERGY SCHEDULER Body Mass Index 24.89 01/21/2023 2:46 PM ENERGY SCHEDULER Plan of Treatment Health Maintenance Due Date [...]
--- OUTSIDE RECORDS SUMMARY | 2025-09-10 17:30 | XMS_ITS | Clinical Summary ---
Author Organization [facility] Address [address] [place] [address] Care Team Providers Care Oyster Sorter Name Role Phone Unavailable Primary Care Provider Unavailabl e Source Comments [facility],non-owned Affiliates and Associated Physician Practices is amultiple site organization consisting of ambulatory clinics and hospital sitesin [place], [place], [place] and [place]. This disclosure is being madepursuant to the Care Everywhere program and may not contain all information available regarding this patient. Last updated 18.[facility] Allergies Active Allergy Reactions Criticality Noted Date [...] patient's age to complete this topic Insurance [facility] MEDICARE MEDICARE
== END 2025-09-10 17:43 | disposition home or self-care (01) ==
PROVIDERS: Emergency Provider Physician Assistant; PCP Internal Medicine
DX: B02.9 Zoster without complications (principal); I48.91 Unspecified atrial fibrillation; I10 Essential (primary) hypertension; E03.9 Hypothyroidism, unspecified; J44.9 Chronic obstructive pulmonary disease, unspecified; G47.33 Obstructive sleep apnea (adult) (pediatric); K58.9 Irritable bowel syndrome, unspecified; K21.9 Gastro-esophageal reflux disease without esophagitis; M19.90 Unspecified osteoarthritis, unspecified site; F41.9 Anxiety disorder, unspecified; Z79.899 Other long term (current) drug therapy
CPT/HCPCS: 99283; A9270

== ENCOUNTER 2025-09-17 13:35 | Emergency (ER) | payer MEDICARE, SELFPAY ==
[2025-09-17 13:46] VITALS: BP 166/100; PULSE 91; RESP 16; TEMP 36.3; O2SAT 100
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
[2025-09-17] MEDS: oxyCODONE HCL (*CRX) 5 MG TAB IR PO (15:02)
--- OUTSIDE RECORDS SUMMARY | 2025-09-17 18:58 | XMS_ITS | Clinical Summary ---
Author Organization [facility] [employer] Address [address] [address] Care Team Providers Care Flight Radio Officer Name Role Phone Unavailable Primary Care Provider Unavailabl e Source Comments [facility] [employer],non-owned Affiliates and Associated Physician Practices is amultiple site organization consisting of ambulatory clinics and hospital sitesin [place], [place], [place] and [place]. This disclosure is being madepursuant to the Care Everywhere program and may not contain all information available regarding this patient. Last updated 18.[facility] [employer] Allergies Active Allergy Reactions Criticality Noted Date [...] patient's age to complete this topic Insurance [facility] MEDICARE MEDICARE
--- OUTSIDE RECORDS SUMMARY | 2025-09-17 18:58 | XMS_ITS | Encounter Summary ---
Author Organization 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 Gender Identity Not on file Sexual Orientation [...] COVID: Suspected 12/24/2022 12/24/2022 12/24/2022 7:05 PM ARM REST BUILDER documented as of this encounter Care Teams Power Generation Plant Operator Relationship Specialty Start Date End Date Barak Christina MD [address] [facility] [facility], [address] [address] PCP - General 05/12/21 02/16/23 Tenisha Juan MD [address] [place] [address] PCP - General Internal Medicine 02/17/23 04/20/23 Susan Bess PA [address] [place] [address] PCP - General Family Medicine 04/21/23 08/02/23 No, Physician PCP - General 08/03/23 01/26/24 Manuel Ballard MD [address] [place] [address] PCP - General Internal Medicine 01/27/24 Dennis Law MD [address] [facility], [address] [address] Consulting Physician Medical Oncology 04/22/21 Crystal Gaitan MD PhD [address] [facility], [address] [address] Surgeon Surgical Oncology 05/28/21 Sherrill Traylor MD [address] [place] [address] Radiation Oncologist Radiation Oncology 07/16/21 Marilu Nation NP Nurse Practitioner Gastroenterology 10/26/23 documented as of this encounter
--- OUTSIDE RECORDS SUMMARY | 2025-09-17 18:58 | XMS_ITS | Data Portability ---
Author Organization [facility] [email or web address], Main Office Address [address] [place] [address] Assessment Encounter Date Assessment Date Assessment LastModified by Organization Details LastModified Time 03/01/2024 03/01/2024 12/05/2023: Chol 317, TG 169, LDL 225 Gluc 108, Ca 11.8 12/30/2023: A1C 5.4 Chol 261, LDL 175 BUN 26 WBC 13.6 Not available 03/01/2024 14:47:25 05/24/2024 05/24/2024 multiple complaints, mostly abdominal. Patient appears well nourished and healthy overall has had a multitude of tests including endoscopy CAT scan ultrasound all negative. Will proceed with HIDA scan to further evaluate gallbladder although I do not feel at this time that that is the main issue alessandro 1 Not available 05/24/2024 11:50:47 06/07/2024 06/07/2024 multiple abdomin al complaints. HIDA scan borderline. Symptomatology does not particular correlate with gallbladder disease. In any event I do not recommend surgical treatment at this time follow-up with primary care and gastroenterology alessandro 1 Not available 06/07/2024 12:46:12 01/10/2025 01/10/2025 12/05/2023: Chol 317, TG 169, LDL 225 Gluc 108, Ca 11.8 12/30/2023: A1C 5.4 Chol 261, LDL 175 BUN 26 WBC 13.6 12/27/2024: TSH 10.300H, FT4 0.91 Chol 261, LDL 176 Gluc 100, BUN 25, GFR 58 Not available 01/10/2025 16:11:59 06/18/2025 06/18/2025 12/05/2023: Chol 317, TG 169, LDL 225 Gluc 108, Ca 11.8 12/30/2023: A1C 5.4 Chol 261, LDL 175 BUN 26 WBC 13.6 12/27/2024: TSH 10.300H, FT4 0.91 Chol 261, LDL 176 Gluc 100, BUN 25, GFR 58 06/04/2025: Dr Gray Chol 256, TG 152, LDL 171 45 minutes spent with the patient from 2.40pm till 3.25pm Labs reviewed, referral provided fran Not available 06/20/2025 19:02:06 Plan of Treatment Reminders Order Date Submit Date Provider Last Modified By Organization Details Last Modified Time Details Appointments New Patient 15 2024 01:45P M Kb Fernández DPM Not available Not available Not available Any 15 2024 02:15P M David conteh MD Not available Not available Not available Lab CMP, serum or plasma 2024 025 [facility] (Lab), [address] [place], [address], 06/19/2025 12:49:56 CBC w/ auto diff 2024 025 [facility] (Lab), [address] [place], [address], 06/19/2025 12:49:56 lipid panel, serum 2024 025 [facility] (Lab), [address] [place], [address], 06/19/2025 12:49:56 CBC w/ auto diff 2024 025 [facility] (Lab), [address] [place], [address], 06/19/2025 12:49:56 HbA1c (hemoglob in A1c), blood 2024 025 [facility] (Lab), [address] [place], [address], 06/19/2025 12:49:56 microalbu min, urine 2024 025 [facility] (Lab), [address] [place], [address], 06/19/2025 12:49:56 vitamin D, 25-hydrox y, total, serum 2024 025 [facility] (Lab), [address] [place], [address], 06/19/2025 12:49:56 TSH, serum or plasma 2024 025 [facility] (Lab), [address] [place], [address], 06/19/2025 12:49:56 T4, free, serum 2024 025 [facility] (Lab), [address] [place], [address], 06/19/2025 12:49:56 vitamin B12 + folate, serum or blood 2024 025 [facility] (Lab), [address] [place], [address], 06/19/2025 12:49:56 CBC w/ auto diff [address] ([facility]), [address] [place], [address], 07/09/2025 09:07:59 HbA1c (hemoglob in A1c), blood [address] ([facility]), [address] [place], [address], 07/09/2025 09:07:59 microalbu min, urine [address] ([facility]), [address] [place], [address], 07/09/2025 09:07:59 vitamin D, 25-hydrox y, total, serum [address] ([facility]), [address] [place], [address], 07/09/2025 09:07:58 CMP, serum or plasma [address] [place] [address] ([facility]), [address] [place], [address], 07/09/2025 09:07:58 CBC w/ auto diff [address] [place] [address] ([facility]), [address] [place], [address], 07/09/2025 09:07:58 lipid panel, serum [address] [place] [address] ([facility]), [address] [place], [address], 07/09/2025 09:07:59 TSH, serum or plasma [address] [place] [address] ([facility]), [address] [place], [address], 07/09/2025 09:07:59 T4, free, serum [address] [place] [address] ([facility]), [address] [place], [address], 07/09/2025 09:07:59 vitamin B12 + folate, serum or blood [address] [place] [address] ([facility]), [address] [place], [address], 07/09/2025 09:07:58 CMP, serum or plasma [address] ([facility]), [address] [place], [address], 02/25/2025 17:50:48 CBC w/ auto diff [address] ([facility]), [address] [place], [address], 02/25/2025 17:50:49 lipid panel, serum [address] ([facility]), [address] [place], [address], 02/25/2025 17:50:49 CBC w/ auto diff [address] ([facility]), [address] [place], [address], 02/25/2025 17:50:50 HbA1c (hemoglob in A1c), blood [address] ([facility]), [address] [place], [address], 02/25/2025 17:50:49 microalbu min, urine [address] ([facility]), [address] [place], [address], 02/25/2025 17:50:49 vitamin D, 25-hydrox y, total, serum [address] ([facility]), [address] [place], [address], 02/25/2025 17:50:48 TSH, serum or plasma [address] [facility] ([facility]), [address] [place], [address], 06/19/2024 14:23:33 T4, free, serum [address] ([facility]), [address] [place], [address], 02/25/2025 17:50:49 vitamin B12 + folate, serum or blood [address] ([facility]), [address] [place], [address], 02/25/2025 17:50:48 Referral nephrolog ist referral - Please call patient to schedule an appointme nt. Thank you. 2024 025 [place], [address] , [facility] [address], [place], [address], 06/25/2025 10:00:26 cardiolog ist referral - Please call patient to schedule an appointme nt. Thank you. 2024 025 [place], [address], [place], [address], 06/28/2025 17:30:59 pulmonolo gist referral - Please call patient to schedule an appointme nt. Thank you. 2024 025 JOCE Menchaca MD, [address], [place], [address], 08/15/2025 14:24:39 podiatris t referral - Please call patient to schedule an appointme nt. Thank you. 2024 025 JOCE Fernández DPM, [address] [facility], [address], [place], [address], 06/24/2025 09:02:33 home health referral - Please call patient to schedule an appointme nt. Thank you. 2024 025 [facility], [address] [facility], [place], [address], 06/21/2025 17:32:[address] referral - Please call patient to schedule an appointme nt. Thank you. 2024 025 [facility], [address] [facility], [address], [place], [address], 06/25/2025 10:18:32 nephrolog ist referral - Please call patient to schedule an appointme nt. Thank you. 2024 025 [email or web address] [place], [address], [address], [place], [address], 07/09/2025 09:08:21 podiatris t referral - Please call patient to schedule an appointme nt. Thank you. 2024 025 [email or web address] Kb TABORM, [address] [facility], [facility] [address], [place], [address], 04/10/2025 16:38:08 pulmonolo gist referral - Please call patient to schedule an appointme nt. Thank you. 2024 025 [email or web address] Sonny Menchaca MD, [address], [place], [address], 05/28/2025 09:53:45 nephrolog ist referral 2023 024 [email or web address] [place], [address], [address], [place], [address], 12/24/2024 09:55:19 cardiolog ist referral 2023 024 [email or web address] [place], [address], [place], [address], 09/25/2024 08:38:52 pulmonolo gist referral 2023 024 [email or web address] Sonny Menchaca MD, [address], [place], [address], 08/28/2024 10:35:40 podiatris t referral 2023 024 [email or web address] Kb Fernández DPM, [address] [facility], [address], [place], [address], 02/25/2025 17:50:59 gastroent erologist referral 2023 024 [email or web address] Falguni Chi MD, [address], [address], [place], [address], 08/22/2024 08:55:00 Procedures None recorded. Surgeries None recorded. Imaging DEXA, axial skeleton [address] ([facility]), [address] [place], [address], 06/19/2025 09:03:21 US, abdomen - Please call patient to schedule. [address] ([facility]), [address] [place], [address], 02/12/2025 13:19:57 DEXA, axial skeleton [address] ([facility]), [address] [place], [address], 01/10/2025 18:30:41 US, abdomen [address] ([facility]), [address] [place], [address], 08/28/2024 09:53:55 DEXA, axial skeleton [address] [facility] ([facility]), [address], [place], [address], 03/09/2024 15:14:10 Medication Orders Synthroid 50 mcg tablet 2024 025 [facility]/Pharmacy #[id number], [address], [place], [address], 01/10/2025 16:36:15 Patient TargetsNo targets recorded. Patient Instructions Encounter Date Encounter Id Patient Instructions Last Modified By Organization Details Last Modified Time 03/01/2024 [id number] dementia rating scale-2* Not available 03/01/2024 15:33:21 alcohol misuse* Not availa ble 03/01/2024 15:33:20 depression screening* Not available 03/01/2024 15:33:20 Timed Up and Go test (TUG)* Not available 03/01/2024 15:33:20 multi-dimensiona l health assessment questionnaire* Not available 03/01/2024 15:33:21 diabetic eye exam* Not avail able 02/25/2025 09:10:16 Personalized [facility] Plan and Screening Recommendations Advance Directives - Do you have one? Yes Advance Directives - Do we have your advance directive on file in your health record? Primary Prevention/Interven tion (prevents or decreases the chance of common diseases from occurring) Smoking Risk: Non Smoker Alcohol Misuse Screening: Negative Weight: Appropriate Physical activity: Need more exercise/physical activity Nutrition: Average Eat heart healthy diet Fall Risk (screened today): Low Vaccines Pneumococcal: Recommended today, but you have declined Influenza: Your next one in the fall of this year Chronic Disease Risks Stroke: Low Risk Active diagnosis, Continue current treatment plan Heart Attack: Intermediate Risk Active diagnosis, Continue current treatment plan Clogging of the Arteries: Intermediate Risk Active diagnosis, Continue current treatment plan Diabetes: Low Risk I have no recommendations Secondary Prevention/Interven tion (detects treatable diseases before they may cause symptoms, disability, or ) Breast Cancer Screening with mammogram: No screening necessary Cervical/Uterine/Ov bob Cancer Screening: No screening necessary Osteoporosis Screening: No screening necessary Date Screening Last Performed: Colon Cancer Screening: No screening necessary Date Screening Last Performed: Eye Disease Screening: Your next exam in: goes every 2-3 yrs Dementia Risk: Low I have no recommendations Depression Screening: Negative I have no recommendations [email or web address] Not available 03/01/2024 15:38:26 01/10/2025 [id number] diabetic eye exam* [email or web address] Not avail able 07/09/2025 08:08:14 06/18/2025 [id number] dementia rating scale-2* [email or web address] Not available 09/11/2025 11:28:33 multi-dimensiona l health assessment questionnaire* [email or web address] Not available 09/11/2025 11:28:25 care plan* [email or web address] Not available 11:28:15 advance directiv es: care instructions Not available 06/18/2025 16:06:06 advance care planning: care instructions Not available 06/18/2025 16:06:07 [place] Advance Directives Not available 06/18/2025 16:06:05 diabetic eye exam* [email or web address] Not availab le 06/19/2025 12:47:02 physical therapy evaluation* [email or web address] Not available 06/26/2025 08:12:11 Personalized a lt Plan and Screening Recommendations Advance Directives - Do you have one? No Advance Directives - Do we have your advance directive on file in your health record? No, please bring in a copy at your earliest convenience Primary Prevention/Interven tion (prevents or decreases the chance of common diseases from occurring) Smoking Risk: Non Smoker Alcohol Misuse Screening: Negative Weight: Appropriate Physical activity: Need more exercise/physical activity Nutrition: Average Fall Risk (screened today): High Vaccines Pneumococcal: Recommended today Influenza: Recommended today Chronic Disease Risks Stroke: Low Risk Active diagnosis, Continue current treatment plan Heart Attack: Low risk Active diagnosis, Continue current treatment plan Clogging of the Arteries: Low risk Active diagnosis, Continue current treatment plan Diabetes: Low Risk Active diagnosis, Continue current treatment plan Secondary Prevention/Interven tion (detects treatable diseases before they may cause symptoms, disability, or ) Breast Cancer Screening with mammogram: Recommended today Cervical/Uterine/Ov bob Cancer Screening: Recommended today Osteoporosis Screening: Recommended today Date Screening Last Performed: Colon Cancer Screening: Colonoscopy Date Screening Last Performed: Eye Disease Screening: Your next exam in: Dementia Risk: High Depression Screening: Not applicable Active diagnosis, Continue current treatment plan Not available 06/18/2025 18:14:36 Reason for Referral Business Communications Instructor Referral for M ild chronic obstructive pulmonary disease Referring Physician: Jesusita Culver Medicine, Encounter Date: 03/01/2024 Search Lead Referral for Hy percalcemia Referring Physician: Jesusita Culver, Encounter Date: 03/01/2024 Crew Chief Referral for Hype rglycemia Referring Physician: Jesusita Culver, Encounter Date: 03/01/2024 Healthcare Marketer Referral for Es sential hypertension Referring Physician: Jesusita Culver, Encounter Date: 03/01/2024 Board Member Referral for Gastroesophageal reflux disease without esophagitis Hepatic Stetosis Referring Physician: Jesusita Culver, Encounter Date: 03/01/2024 Business Communications Instructor Referral for M ild chronic obstructive pulmonary disease Please call patient to schedule an appointment. Thank you. Referring Physician: Jesusita Culver, Encounter Date: 01/10/2025 Search Lead Referral for Hy percalcemia Please call patient to schedule an appointment. Thank you. Referring Physician: Jesusita Culver, Encounter Date: 01/10/2025 Crew Chief Referral for Hype rglycemia Please call patient to schedule an appointment. Thank you. Referring Physician: Jesusita Culver, Encounter Date: 01/10/2025 Business Communications Instructor Referral for M ild chronic obstructive pulmonary disease Please call patient to schedule an appointment. Thank you. Referring Physician: David Ballard Internal Medicine, Encounter Date: 06/18/2025 Search Lead Referral for Hy percalcemia Please call patient to schedule an appointment. Thank you. Referring Physician: David Ballard Internal Medicine, Encounter Date: 06/18/2025 Crew Chief Referral for Hype rglycemia Please call patient to schedule an appointment. Thank you. Referring Physician: David Ballard Internal Medicine, Encounter Date: 06/18/2025 Healthcare Marketer Referral for Es sential hypertension Please call patient to schedule an appointment. Thank you. Referring Physician: Jesusita Culver Medicine, Encounter Date: 06/18/2025 Home Health Referral for Sev ere dementia Please call patient to schedule an appointment. Thank you. Referring Physician: David Ballard Internal Medicine, Encounter Date: 06/18/2025 Neurologist Referral for Sev ere dementia Please call patient to schedule an appointment. Thank you. Referring Physician: Jesusita Culver Medicine, Encounter Date: 06/18/2025 Results Created Date Observation Date Name Description Value Unit Range Abnormal Flag Note LastModifiedBy Organization Detail LastModifiedTime 06/18/20 24 06/18/2024 RHEUM ATOID FACTO R rf <8.6 IU/mL 0.0-11 .9 Not Available [facility] (Lab) [address] [place], [address], 06/18/2024 19:59:35 06/18/2006/18/2024 C REACT JOSE PROTE IN,UL TRA SENS C-reactive protein 0.33 mg/dL 0.0-0. 5 Not Available [facility] (Lab) [address] [place], [address], 06/18/2024 19:59:37 06/18/20 24 06/18/2024 SEDIM ENTAT ION RATE erythrocyte sedimentatio n rate 28 mm/HR 0-20 high Not Available [facility] (Lab) [address] [place], [address], 06/18/2024 18:28:57 06/18/20 24 06/19/2024 ANTI- CCP ANTIB ODIES IGG/I GA ccp antibodies IgG/IgA 8 units 0-19 Negat jose <20 Weak posit jose 20 - 39 Moder ate posit jose 40 - 59 Stron g posit jose >59 Perfo rmed at: [facility] n [address] [place] [address] Lab Direc tor: Sander puga PhD, Phone : [phone] Not Available [facility] (Lab) [address] [place], [address], 06/19/2024 15:11:25 06/18/20 24 06/20/2024 JULY SCREE N RFX TITER /GIOVANNA IZABELLA antinuclear antibodies, ifa Negati ve Negat jose <1:80 Borde rline 1:80 Posit jose >1:80 ICAP nomcira jasso re: AC-0 For more infor matio n about Hep-2 cell patte rns use ANApa ttern s.org , the offic ial websi te for the Inter natio nal Conse nsus on Antin uclea r Antib maria (JULY) Patte rns (ICAP ). [facility] [address] [place] [address] Lab Direc tor: Sander puga PhD, Phone : [phone] Not Available [facility] (Lab) [address] [place], [address], 06/20/2024 11:13:48 03/09/20 24 03/09/2024 US, abdom en, limit ed [facility] [address] [place] [address] Patien t Name: DOLORES MIRANDA Access ion #: [id number] Sex: F : 1944 7 Dictat ed By: Elaine Urbina Attend ing Physic abdiel: SAMIR BRUSH LACEYDukeJARAD Carolyn Orderi Physic abdiel: SAMIR BRUSH LACEYDukeJARAD Carolyn Exam Date: 2023 11:10 AM Exam Name: US ABDOME N SINGLE ORGAN Admitt ing Diagno sis(es ): INDICA TION: fatty liver TECHNI QUE: Multip le real-t edison sonogr aphic images were obtain ed of the right upper quadra nt. COMPAR SANCHEZ: None. FINDIN GS: The liver demons trates homoge nous increa sed echote xture withou t focal mass lesion s. The liver measur es measur es 13.6 cm. There is no intrah epatic or extrah epatic ductal dilata tion. The common duct measur es 0.4 cm. Gallbl adder: Unrema rkable . The gallbl adder wall measur es 0.1 cm and is within normal limits . The right kidney measur es 9.3 cm. There is no hydron ephros is. The pancre as is not well visual ized due to overly ing bowel gas. IMPRES COLTON: Hepati c steato sis. Electr onical ly Signed by: Elaine Urbina at 2023 12:04: 55 PM Page 1 [email or web address] [facility] (Imaging) [address] [facility] [place], [address], 03/26/2024 15:43:10 03/09/20 24 03/09/2024 DEXA, axial skele ton [facility] [address] [facility] [place] [address] [phone] Patien t Name: DOLORES MIRANDA Access ion #: [id number] Sex: F : 1944 7 Dictat ed By: Krishn a Urbina Attend ing Physic abdiel: BLANCASARAH ALVAREZ ng Physic abdiel: SAMIR SARAH BRUSH Exam Date: 2023 11:23 AM Exam Name: XR DEXA-H IPS PELVIS SPINE Admitt ing Diagno sis(es ): 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 Fractu re probab ility calcul ated for an untrea didier patien t. Fractu re probab ility may be lower if the patien t has receiv ed treatm ent. T-scor e: compar sanchez by yoselin arango ion (NORMA) to a young adult popula tion, mariaelena doe for sex and ethnic ity (used for postme noptonya al women and men >50 years) and classi fied by WHO criter ia. -1.0: normal <-1.0 to >-2.5: osteop enia -2.5: osteop orosis -2.5 plus fragil ity fractu re: severe osteop orosis Page 1 [facility] [address] [facility], [place] [id number] Patien t Name: LIZZIE HERNANDEZ DOLORESPIPE Viramontes ion #: [id number] Sex: F : 1944 7 Dictat ed By: Elaine garcia Urbina Attend ing Physic abdiel: SARAH Garcia SAMIR TRUDI White ng Physic abdiel: SAMIR SARAH BRUSH Exam Date: 2023 11:23 AM Exam Name: XR DEXA-H IPS PELVIS SPINE Admitt ing Diagno sis(es ): Z-scor e: compar ed by SD to an age, sex, and ethnic ity popula tion (used for premen opausa l women, men <50 years, and childr en instea d of T-scor e WHO criter ia 4) <-2.0: below expect ed range/ low bone densit y for age, and a cause should be sought Electr onical ly Signed by: Elaine Urbina at 2023 14:12: 55 PM Page 2 [email or web address] [facility] (Imaging) [address] [place], [address], 03/26/2024 15:36:28 05/29/20 24 05/29/2024 NM, hepat obili francisco scan, w/pha rm [facility] [address] [place] [address] [phone] Patien t Name: DOLORES MIRANDA Access ion #: [id number] Sex: F : 1944 2 Dictat ed By: Maral nicole Attend ing Physic abdiel: ROSETTA PETERS Orderi Physic abdiel: ROSETTA PETERS Exam Date: 2023 08:41 AM Exam Name: NM HEPATO BILIAR Y W PHARM Admitt ing Diagno sis(es ): CLINIC AL INFORM ATION: Abdomi nal pain. TECHNI QUE: 7.8 mCi of [place] ec were admini stered intrav enousl y. Images of the upper abdome n were obtain ed at 5 minute interv als up to a total time of 60 minute s. Subseq uently , 1.3 mcg CCK was admini stered intrav enousl y, as per protoc ol, and repeat dynami c anteri or region al images of the liver were obtain ed over an additi onal 30 minute s. A region of intere st was drawn around the gallbl adder, from which a gallbl adder ejecti on fracti on was obtain ed. Time/a ctivit y profil e curves were genera didier. COMPAR SANCHEZ: Ultras ound dated [address] dated 2023. FINDIN GS: There is prompt gallbl adder visual izatio n. There is prompt excret ion of activi ty from the biliar y ductal system into the small bowel. There is no eviden ce of acute cholec ystiti s. The gallbl adder ejecti on fracti on is mildly abnorm al (romy l greate r than 30) and is calcul ated to be 29.74 %. IMPRES COLTON: 1. No scinti graphi c eviden ce of acute cholec ystiti s. 2. Mildly abnorm al gallbl adder ejecti on fracti on of 29.74% , may be seen with functi onal gallbl adder disord er. Electr onical ly Signed by: Maral nicole at 2023 13:04: 18 PM Page [address] (Imaging) [address] [place], [address], 06/06/2024 08:52:40 05/29/2005/29/2024 US, abdom en, limit ed No observ ation record ed. [address] [place], [address], 05/29/2024 17:03:15 05/29/20 24 05/29/2024 imagi ng/di agnos tic resul t No observ ation record ed. [facility] [address] [place], [address], 05/29/2024 16:15:08 06/27/20 24 06/24/2024 CT, abdom en + pelvi s, w/ contr ast No observ ation record ed. BAR[facility] Not Available 2023 12:46:33 11/23/20 24 11/23/2024 imagi ng/di agnos tic resul t No observ ation record ed. [facility] [address], [place], [address], 11/23/2024 18:08:11 11/26/20 24 11/23/2024 imagi ng/di agnos tic resul t No observ ation record ed. [facility] [address], [place], [address], 11/26/2024 15:44:36 03/15/20 25 03/15/2025 US, abdom en, limit ed [facility] [address] [place] [address] Patien t Name: DOLORES MIRANDA ion #: [id number] Sex: F : 1944 6 Dictat ed By: Tequila Aj Attend ing Physic abdiel: SARAH WELCH Orderi avtar Physic abdiel: SARAH WELCH Exam Date: 2024 09:17 AM Exam Name: US ABDOME N SINGLE ORGAN Admitt ing Diagno sis(es ): INDICA TION: steato sis of liver TECHNI QUE: Multip le real-t edison sonogr aphic images were obtain ed of the right upper quadra nt. COMPAR SANCHEZ: US ABDOME N SINGLE ORGAN on DOS: 4 FINDIN GS: The liver demons trates homoge nous echote xture withou t focal mass lesion s. The liver measur es 13 cm. There is no intrah epatic or extrah epatic ductal dilata tion. The common duct measur es 5 mm. The gallbl adder is withou t eviden ce of stone or sludge . The gallbl adder wall measur es 1 mm. The right kidney measur es 9.0 cm. The right kidney is normal in contou r, size, and shape. The echoge nicity is normal . There is no hydron ephros is. The pancre as is not well visual ized due to overly ing bowel gas. IMPRES COLTON: No sonogr aphic eviden ce of gallst ones or acute cholec ystiti s. Electr onical ly Signed by: Tequila Aj at 2024 13:08: 54 PM Page 1 [email or web address] [facility] (Imaging) [address] [place], [address], 03/28/2025 10:27:18 03/15/20 25 03/15/2025 US, abdom en No observ ation record ed. JOCE [facility] [address] [place], [address], 03/15/2025 14:13:11 Result Notes Documentation Provider Name and Address Organization Details Recorded Time Dexa, Axial Skeleton : [facility] [address] [place] [address] Patient Name: DOLORES GROSS Sex: F : 1945 Dictated By: Todd Urbina Attending Physician: DAVID BALLARD Ordering Physician: DAVID BALLARD Exam Date: 03/09/2024 11:23 AM Exam Name: XR DEXA-HIPS PELVIS SPINE Admitting Diagnosis(es): INDICATION: Postmenopausal osteoporosis DEXA SCAN: BONE DENSITY REPORT: AP SPINE (L1-L4) : T Score: -2.1 LEFT HIP TOTAL : T Score: -0.6 RT HIP TOTAL : T Score: -0.5 TOTAL BILAT HIP AVG: T Score: -0.5 10 YEAR FRACTURE RISK* NA IMPRESSION: Osteopenia lumbar spine --- *FRAX version 3.08. Fracture probability calculated for an untreated patient. Fracture probability may be lower if the patient has received treatment. T-score: comparison by standard deviation (SD) to a young adult population, matched for sex and ethnicity (used for postmenopausal women and men >50 years) and classified by WHO criteria. -1.0: normal <-1.0 to >-2.5: osteopenia -2.5: osteoporosis -2.5 plus fragility fracture: severe osteoporosis Page 1 [facility] [address] [place] [address] Patient Name: DOLORES GROSS Sex: F : 1945 Dictated By: Todd Urbina Attending Physician: NITO HERNANDEZ Ordering Physician: DAVID BALLARD Exam Date: 03/09/2024 11:23 AM Exam Name: XR DEXA-HIPS PELVIS SPINE Admitting Diagnosis(es): Z-score: compared by SD to an age, sex, and ethnicity population (used for premenopausal women, men <50 years, and children instead of T-score WHO criteria 4) <-2.0: below expected range/low bone density for age, and a cause should be sought Page 2 ISABEL Suazo, [place] - [facility] 03/26/2024 15:36:28 Nm, Hepatobiliary Scan, W/pharm : [facility] [address] [place] [address] Patient Name: DOLORES GROSS Sex: F : 1945 Dictated By: Vitaly Guthrie Attending Physician: DIEGO LAY Ordering Physician: DIEGO LAY Exam Date: 05/29/2024 08:41 AM Exam Name: NM HEPATOBILIARY W PHARM Admitting Diagnosis(es): CLINICAL INFORMATION: Abdominal pain. TECHNIQUE: 7.8 mCi of Choletec were administered intravenously. Images of the upper abdomen were obtained at 5 minute intervals up to a total time of 60 minutes. Subsequently, 1.3 mcg CCK was administered intravenously, as per protocol, and repeat dynamic anterior regional images of the liver were obtained over an additional 30 minutes. A region of interest was drawn around the gallbladder, from which a gallbladder ejection fraction was obtained. Time/activity profile curves were generated. COMPARISON: Ultrasound dated 03/09/[address] dated 12/26/2023. FINDINGS: There is prompt gallbladder visualization. There is prompt excretion of activity from the biliary ductal system into the small bowel. There is no evidence of acute cholecystitis. The gallbladder ejection fraction is mildly abnormal (normal greater than 30) and is calculated to be 29.74 %. IMPRESSION: 1. No scintigraphic evidence of acute cholecystitis. 2. Mildly abnormal gallbladder ejection fraction of 29.74%, may be seen with functional gallbladder disorder. Page 1 ISABEL Castillo, [place] [facility] [employer] [facility] 06/06/2024 08:52:40 Problems Name Problem SNOMED Code Status Onset Date Resolution Date Notes Provider Name and Address Organization Details Recorded Time Bilateral plantar fasciitis 70137431650 933810 Active 2018 Not Available [facility] 3 14:37:31 Asthma 191913610 Active 2018 Not Available [facility] 3 14:37:31 Wears glasses 903778845 Active 2018 Not Available [facility] 3 14:37:31 Pain in left foot 07085382408 9107 Active 2018 Not Available [facility] 3 14:37:31 Hypertens jose disorder 91146037 Completed 201809/22/2021 Not Available [facility] 3 02:33:11 Seasonal allergy 694654794 Active 2018 Not Available [facility] 3 14:37:31 Pseudomon as isolated in sputum by culture 15354955905 341245 Active 2020 Not Available [facility] 3 14:37:31 Hypertens jose emergency 40609945851 9104 Active 2020 Not Available [facility] 3 14:37:31 Chest pain 77770639 Active 2020 Not Available [facility] 3 14:37:31 Mild chronic obstructi ve pulmonary disease 877722829 Active 2021 Not Available [facility] 3 14:37:31 Chronic obstructi ve pulmonary disease 98692005 Active 2022 Not Available [facility] 3 14:37:31 Hypothyro idism 17980825 Active 2022 Not Available [facility] 3 14:37:31 Vitamin B12 deficienc y (non anemic) 66278174 Active 2022 Not Available [facility] 3 14:37:31 Protein electroph oresis outside reference range 978761555 Active 2022 Not Available [facility] 3 14:37:31 Essential hypertens ion 50403562 Active 2022 Not Available [facility] 3 14:37:31 Moderate recurrent major depressio n 21955167 Active 2023 David garcia MD [address], [place], [address] , [employer] [facility] 4 11:25:23 Vitamin D deficienc y 84226915 Active 2023 David garcia MD [address], [place], [address] , [employer] 4 11:26:31 Serum vitamin B12 below reference range 389533642 Active 2023 David garcia MD [address], [place], [address] , [employer] [facility] 4 11:26:44 Diverticu litis 425429534 Active 2023 David garcia MD [address], [place], [address] , [employer] [facility] 4 11:28:47 Steatotic liver disease 036056631 Active 2023 David garcia MD [address], [place], [address] , [employer] [facility] 4 11:29:18 Gastroeso phageal reflux disease without esophagit is 380727508 Active 2023 David garcia MD [address], [place], [address] , [facility] 4 11:34:25 Generaliz ed anxiety disorder 11168824 Active 2023 David garcia MD [address], [place], [address] , [facility] 4 14:57:24 Hyperlipi demia 62197377 Active 2023 Herlinda Trejo RN null, [facility] 4 13:58:37 Hypercalc emia 74799486 Active 2023 Herlinda Trejo RN null, [place] [facility] 4 14:07:59 Metabolic dysfuncti on-associ ated steatohep atitis 394055399 Active 2023 David garcia MD [address], [place], [address] , [facility] 4 14:07:52 Hyperglyc emia 07551840 Active 2023 David garcia MD [address], [place], [address] , [facility] 4 14:10:51 Upper respirato ry infection 81505371 Active 2023 Bea Hart MA null, [place] [facility] 4 15:26:42 Leukocyto sis 283697209 Active 2023 David garcia MD [address], [place], [address] , [facility] 4 14:23:31 Nausea and vomiting 98126255 Active 2023 Bea Hart MA null, [place] [facility] 4 15:09:38 Sore throat 290635891 Active 2023 WAQAS Hernandez null, [facility] 4 16:16:57 Fever 234570935 Active 2023 WAQAS Hernandez null, [facility] 4 16:19:12 Abdominal pain 45661274 Active 2023 Diego duarte MD [address], [place], [address] , [facility] 4 14:55:06 Generaliz ed aches and pains 14619425 Active 2023 ISABEL Suazo, [facility] 4 14:38:29 Pain of ear 071968254 Active 2023 ISABEL Suazo, [facility] 4 15:10:38 Erythrocy te sedimenta tion rate above reference range 235142952 Active 2023 ISABEL Suazo, [facility] 4 16:08:10 Chronic kidney disease 982815023 Active 2023 ISABEL Suazo, [facility] 4 14:16:51 Candidias is of mouth 96727889 Active 2023 Bea Hart MA null, [facility] 4 15:30:45 Bilateral earache 449201218 Active 2024 WAQAS Robert null, [facility] 5 10:38:32 Cough 50050144 Active 2024 Ailyn Chávez MA null, [place] - [facility] 5 10:59:56 Bilateral earache 697874291 Active 2024 David garcia MD [address], [place], [address] , [facility] 5 18:27:22 Severe dementia 31748484133 4105 Active 2024 David garcia MD [address] [facility], [facility] [address], [place], [address] , [facility] 5 16:07:15 Infection of ear 674670651 Active 2024 WAQAS Robert null, [facility] 5 11:33:23 Notes:Medical History: [place] didier chromogranin A Bilateral tinnitus Rhinitis with postnasal drip Eosinophils 470/uL IgE 38 IU/mL Alpha-1 antitrypsin PiMM 183 mg% NATHALY pulmonary fibrosis (+) JULY 1:80 speckled Granulomatous disease (chest, mediastinum, spleen) Hypothyroidism Hyperlipidemia Hypertension EF 61% Mild MR MICHAEL Descending colon diverticulosis/diverticulitis Bilateral plantar fasciitis Procedure History: Left lumpectomy and radiation for breast ca 2020 Problem Notes None recorded. Procedures Surgical History Date Name Laterality Status Provider Name and Address Organization Details Recorded Time 5 Medicare Wellness CPT Code, subsequent completed Lizzette Atkins [facility] 06/18/2025 15:14:02 4 Medicare Wellness CPT Code, subsequent completed Glory Cloud RN [facility] 03/01/2024 15:00:20 biopsy of breast completed Not Available [facility] 01/26/2023 02:30:05 lumpectomy of left breast completed WAQAS Robert [facility] 12/01/2023 14:47:52 Imaging Results None recorded. Procedure Notes None recorded. Medical Equipment None Reported. Allergies Allergen ID Allergen Name Allergen Category Reaction Reaction Severity Criticality Documentation Date Start Date Code Code System Note Provider Name and Address Organization Details Recorded Time 3310 hydralazi ne medicatio n Not available Not available Not available 01/26/2023 5470 RxNorm Not Available [facility] 3 02:37:37 3312 diltiazem Not available Not available Not available Not available 01/26/2023 3443 RxNorm Not Available [facility] 3 02:37:37 3313 ciproflox acin medicatio n Not available Not available Not available 01/26/2023 2551 RxNorm WAQAS Ordonez, [facility] 3 15:09:18 3314 Cipro medicatio n Not available Not available Not available 01/26/2023 38484 3 RxNorm WAQAS Ordonez, [facility] 3 15:09:13 3315 carvedilo l medicatio n Not available Not available Not available 01/26/2023 01839 RxNorm Not Available [facility] 3 02:37:38 3316 amlodipin e medicatio n Not available Not available Not available 01/26/2023 09197 RxNorm Not Available [facility] 3 02:37:38 Medications Name Sig Start Date Stop Date Status Note LastModified by Organization Details LastModified Time amoxicilli n 500 mg capsule TAKE 1 CAPSULE BY MOUTH EVERY 8 HOURS active Not Available Not Available No t Available atorvastat in 40 mg tablet TAKE 1 TABLET BY MOUTH EVERY DAY 06/18 completed Not Available Not Available Not Available anastrozol e 1 mg tablet TAKE 1 TABLET BY MOUTH EVERY DAY 02/15 completed Not Available Not Available Not Available neomycin-p olymyxin-h ydrocort 3.5 mg/mL-10,0 00 unit/mL-1 % ear solution 03/04 completed Not Available Not Available Not Available nystatin 100,000 unit/mL oral suspension TAKE 5 ML BY MOUTH 4 TIMES A DAY FOR 7 DAYS 06/18 completed Not Available Not Available Not Available clonidine HCl 0.1 mg tablet TAKE 1 TABLET BY MOUTH TWICE A DAY active Not Available Not Available No t Available prednisone 10 mg tablet TAKE 4 TABS DAILY X3 DAYS, 3 TABS DAILY X2 DAYS, 2 TABS DAILY X1 DAY THEN 1 TAB DAILY X1 DAY 12/01 completed Not Available Not Available Not Available doxycyclin e hyclate 100 mg capsule TAKE 1 CAPSULE BY MOUTH TWICE A DAY FOR 7 DAYS 12/01 completed Not Available Not Available Not Available verapamil 40 mg tablet TAKE 1 TABLET BY MOUTH TWICE A DAY 06/09 completed Not Available Not Available Not Available trazodone 50 mg tablet 07/03 completed Not Available Not Available Not Available cetirizine 10 mg tablet TAKE 1 TABLET BY MOUTH EVERY DAY active Not Available Not Available No t Available azithromyc in 250 mg tablet TAKE 2 TABLETS BY MOUTH TODAY, THEN TAKE 1 TABLET DAILY FOR 4 DAYS DIRECTED 03/01 completed Not Available Not Available Not Available levalbuter ol 0.63 mg/3 mL solution for nebulizati on INHALE CONTENTS OF 1 VIAL VIA NEBULIZE R EVERY 6 TO 8 HOURS NEEDED 12/01 completed Not Available Not Available Not Available diltiazem CD 180 mg capsule,ex tended release 24 hr TAKE 1 CAPSULE BY MOUTH EVERY DAY active Not Available Not Available No t Available ofloxacin 0.3 % eye drops PLEASE SEE ATTACHED FOR DETAILED DIRECTIO NS active Not Available Not Available No t Available fluconazol e 150 mg tablet 09/17 completed Not Available Not Available Not Available amiodarone 200 mg tablet TAKE 1 TABLET BY MOUTH EVERY DAY active Not Available Not Available No t Available benzonatat e 200 mg capsule TAKE 1 CAPSULE BY MOUTH THREE TIMES A DAY X10 DAYS 12/20 completed Not Available Not Available Not Available metoprolol succinate ER 50 mg tablet,ext ended release 24 hr active Not Available Not Available Not Available citalopram 10 mg tablet TAKE 1 TABLET BY MOUTH EVERY DAY active Not Available Not Available No t Available valacyclov ir 1 gram tablet TAKE 1 TABLET BY MOUTH EVERY 8 HOURS FOR 1 WEEK active Not Available Not Available No t Available hydrocodon e 5 mg-acetami nophen 325 mg tablet TAKE 1 TABLET BY MOUTH EVERY 6 HOURS NEEDED 12/01 completed Not Available Not Available Not Available prochlorpe razine maleate 5 mg tablet TAKE 1 TABLET BY MOUTH TWICE A DAY 06/18 completed Not Available Not Available Not Available meloxicam 15 mg tablet Take 1 tablet every day by oral route with meals for 30 days. active Not Available Not Available No t Available sucralfate 1 gram tablet TAKE 1 TABLET BY MOUTH FOUR TIMES A DAY 12/01 completed Not Available Not Available Not Available lisinopril 20 mg tablet TAKE 1 TABLET BY MOUTH TWICE A DAY active Not Available Not Available No t Available ondansetro n HCl 4 mg tablet TAKE 1 TABLET BY MOUTH TWICE A DAY NEEDED active Not Available Not Available No t Available prednisone 20 mg tablet TAKE 3 TABLETS BY MOUTH EVERY DAY FOR 5 DAYS active Not Available Not Available No t Available clonazepam 0.5 mg tablet 02/02 completed Not Available Not Available Not Available simvastati n 10 mg tablet 06/04 completed Not Available Not Available Not Available prednisone 5 mg tablet TAKE 1 TABLET BY MOUTH EVERY DAY 01/10 completed Not Available Not Available Not Available clonazepam 1 mg tablet TAKE 1 TABLET BY MOUTH THREE TIMES A DAY NEEDED FOR ANXIETY 12/20 completed Not Available Not Available Not Available atenolol 25 mg tablet Take 1 tablet twice a day by oral route around the clock for 90 days. 09/17 completed Not Available Not Available Not Available metronidaz ole 500 mg tablet TAKE 1 TABLET BY MOUTH EVERY 12 HOURS X7 DAYS 06/18 completed Not Available Not Available Not Available acetaminop hen 300 mg-codeine 30 mg tablet 02/15 completed Not Available Not Available Not Available ciprofloxa sarkis 250 mg tablet TAKE 1 TABLET BY MOUTH EVERY 12 HOURS FOR 7 DAYS 01/10 completed Not Available Not Available Not Available levofloxac in 250 mg tablet TAKE 1 TABLET BY MOUTH EVERY DAY FOR 7 DAYS 06/04 completed Not Available Not Available Not Available Freeze Dried Acidophilu s capsule TAKE 2 CAPSULES BY MOUTH TWICE A DAY 12/01 completed Not Available Not Available Not Available amlodipine 5 mg tablet TAKE 1 TABLET BY MOUTH EVERY DAY AT NIGHT active Not Available Not Available No t Available allopurino l 100 mg tablet TAKE 1 TABLET BY MOUTH EVERY DAY FOR 90 DAYS 06/18 completed Not Available Not Available Not Available ciprofloxa sarkis 500 mg tablet TAKE 1 TABLET BY MOUTH EVERY 12 HOURS FOR 10 DAYS 01/10 completed Not Available Not Available Not Available liothyroni ne 5 mcg tablet TAKE 1 TABLET BY MOUTH TWICE A DAY 06/18 completed Not Available Not Available Not Available levothyrox ine 75 mcg tablet TAKE 1 TABLET BY MOUTH EVERY DAY IN THE MORNING active Not Available Not Available No t Available levothyrox ine 100 mcg tablet Take 1 tablet every day by oral route in the morning for 30 days. 06/04 completed Not Available Not Available Not Available clonidine HCl 0.2 mg tablet TAKE 1 TABLET BY MOUTH EVERY 8 HOURS NEEDED active Not Available Not Available No t Available famotidine 20 mg tablet TAKE 1 TABLET (20 MG TOTAL) BY MOUTH DAILY. 06/18 completed Not Available Not Available Not Available metoclopra mide 5 mg tablet TAKE 1 TABLET (5 MG TOTAL) BY MOUTH 2 (TWO) TIMES A DAY NEEDED (NAUSEA AND VOMITING ) 06/18 completed Not Available Not Available Not Available exemestane 25 mg tablet TAKE 1 TABLET (25 MG TOTAL) BY MOUTH DAILY. active Not Available Not Available No t Available levothyrox ine 50 mcg tablet TAKE 1 TABLET BY MOUTH EVERY DAY active Not Available Not Available No t Available cephalexin 500 mg capsule TAKE 1 CAPSULE BY MOUTH 4 TIMES DAILY FOR 7 DAYS. 06/09 completed Not Available Not Available Not Available pantoprazo le 40 mg tablet,del ayed release TAKE 1 TABLET BY MOUTH 2 TIMES A DAY BEFORE BREAKFAS T AND DINNER. active Not Available Not Available No t Available simvastati n 20 mg tablet TAKE 1 TABLET BY MOUTH EVERY DAY IN THE EVENING 09/17 completed Not Available Not Available Not Available nortriptyl ine 10 mg capsule TAKE 1 CAPSULE BY MOUTH EVERY DAY IN THE EVENING 03/01 completed does not help Not Available Not Available Not Available cyanocobal bishop (vit B-12) 1,000 mcg/mL injection solution INJECT 1 ML UNDER THE SKIN EVERY WEEK IN THE MORNING FOR 90 DAYS. 12/01 completed Not Available Not Available Not Available clonazepam 2 mg tablet TAKE 1 TABLET BY MOUTH THREE TIMES A DAY active Not Available Not Available No t Available gabapentin 300 mg capsule TAKE 1 CAPSULE BY MOUTH EVERY DAY FOR 1 WEEK active Not Available Not Available No t Available omeprazole 20 mg capsule,de layed release TAKE 1 CAPSULE BY MOUTH DAILY BEFORE BREAKFAS T. 12/01 completed Not Available Not Available Not Available lisinopril 20 mg-hydroch lorothiazi de 25 mg tablet TAKE 1 TABLET BY MOUTH EVERY DAY 06/09 completed Not Available Not Available Not Available diltiazem CD 120 mg capsule,ex tended release 24 hr TAKE 1 CAPSULE BY MOUTH EVERY DAY 09/17 completed Not Available Not Available Not Available clonidine 0.3 mg/24 hr weekly transderma l patch 09/17 completed Not Available Not Available Not Available hydrochlor othiazide 25 mg tablet TAKE 1 TABLET BY MOUTH EVERY DAY IN THE MORNING 06/18 completed Not Available Not Available Not Available Synthroid 112 mcg tablet TAKE 1 TABLET BY MOUTH IN THE MORNING THREE TIMES WEEKLY active Not Available Not Available No t Available metoprolol succinate ER 25 mg tablet,ext ended release 24 hr TAKE 1 TABLET BY MOUTH EVERY DAY IN THE EVENING active Not Available Not Available No t Available ergocalcif sandy (vitamin D2) 1,250 mcg (50,000 unit) capsule TAKE 1 CAPSULE BY MOUTH ONE TIME PER WEEK FOR 30 DAYS 06/18 completed Not Available Not Available Not Available levalbuter ol 1.25 mg/3 mL solution for nebulizati on TAKE 3 ML (1.25 MG TOTAL) BY NEBULIZA TION 4 (FOUR) TIMES A DAY active Not Available Not Available No t Available levofloxac in 750 mg tablet TAKE 1 TABLET BY MOUTH EVERY DAY FOR 10 DAYS 12/01 completed Not Available Not Available Not Available letrozole 2.5 mg tablet TAKE 1 TABLET BY MOUTH EVERY DAY 12/01 completed Not Available Not Available Not Available methylpred nisolone 4 mg tablets in a dose pack TAKE 6 TABLETS ON DAY 1 DIRECTED ON PACKAGE AND DECREASE BY 1 TAB EACH DAY FOR A TOTAL OF 6 DAYS 06/18 completed Not Available Not Available Not Available lisinopril 40 mg tablet TAKE ONE TABLET BY MOUTH ONE TIME DAILY active Not Available Not Available No t Available ondansetro n 4 mg disintegra ting tablet TAKE 1 TABLET (4 MG TOTAL) BY MOUTH EVERY 8 (EIGHT) HOURS NEEDED FOR NAUSEA. 06/18 completed Not Available Not Available Not Available cefdinir 300 mg capsule TAKE 1 CAPSULE BY MOUTH 2 TIMES DAILY FOR 7 DAYS 06/09 completed Not Available Not Available Not Available doxycyclin e hyclate 100 mg tablet TAKE 1 TABLET BY MOUTH DAILY FOR CHRONIC MASTOIDI TIS RIGHT TAKE 1 TABLET DAILY FOR MASTOID INFECTIO N active Not Available Not Available No t Available atenolol 50 mg tablet active Not Available Not Available Not Available spironolac tone 50 mg tablet TAKE 2 TABLETS BY MOUTH EVERY DAY IN THE MORNING FOR 90 DAYS. 06/04 completed Not Available Not Available Not Available amoxicilli n 875 mg-potassi um clavulanat e 125 mg tablet TAKE 1 TABLET BY MOUTH TWICE A DAY FOR 10 DAYS active Not Available Not Available No t Available amoxicilli n 500 mg-potassi um clavulanat e 125 mg tablet TAKE 1 TABLET BY MOUTH EVERY 12 HOURS FOR 10 DAYS 01/10 completed Not Available Not Available Not Available Ventolin HFA 90 mcg/actuat ion aerosol inhaler INHALE 2 PUFFS BY MOUTH EVERY 4 HOURS NEEDED FOR WHEEZING 12/01 completed Not Available Not Available Not Available neomycin-p olymyxin-h ydrocort 3.5 mg-10,000 unit/mL-1 % ear drops,susp INSTILL 4 DROPS INTO AFFECTED EAR 3 TIMES A DAY 12/01 completed Not Available Not Available Not Available escitalopr am 5 mg tablet TAKE 1 TABLET BY MOUTH EVERY DAY 12/01 completed Not Available Not Available Not Available metoprolol tartrate 25 mg tablet TAKE 1 TABLET BY MOUTH TWICE A DAY active Not Available Not Available No t Available nitrofuran toin monohydrat e/macrocry stals 100 mg capsule 06/04 completed Not Available Not Available Not Available Bystolic 20 mg tablet 04/04 completed Not Available Not Available Not Available BD Insulin Syringe Ultra-Fine 1 mL 31 gauge x /16 USE TO INJECT B12 ONCE WEEKLY 02/04 completed Not Available Not Available Not Available Breo Ellipta 100 mcg-25 mcg/dose powder for inhalation Inhale 1 puff every day by inhalati on route. 12/01 completed gargle after use Not Available Not Available Not Available Incruse Ellipta 62.5 mcg/actuat ion powder for inhalation INHALE 1 PUFF BY MOUTH ONCE DAILY 12/01 completed Not Available Not Available Not Available Vitals Date Recorded Body height Body mass index (BMI) Body weight Body temperature Heart rate Oxygen saturation Oxygen saturation in Arterial blood by Pulse oximetry Pain severity - 0-10 verbal numeric rating [Score] - Reported Systolic And Diastolic Provider Name and Address Organization Details Last Updated DateTime 5 162.56 cm 23.1 kg/m2 59052.1 7 g 98.1 [degF] 98 /min 66 % 66 % 0 142/80 mm[Hg] Ama Ye [place] [email or web address] 5 16:01:03 Date Recorded Body height Body mass index (BMI) Body weight Body temperature Heart rate Systolic And Diastolic Provider Name and Address Organization Details Last Updated DateTime 4 162.56 cm 24.9 kg/m2 86531.8 9 g 97.9 [degF] 84 /min 130/74 mm[Hg] WAQAS Robert [facility] [employer] [facility] 4 14:33:21 Date Recorded Body height Body mass index (BMI) Body weight Heart rate Body temperature Respiratory rate Oxygen saturation Oxygen saturation in Arterial blood by Pulse oximetry Systolic And Diastolic Provider Name and Address Organization Details Last Updated DateTime 4 162.56 cm 24.9 kg/m2 96823.8 9 g 74 /min 97.9 [degF] 14 /min 97 % 97 % 140/80 mm[Hg] Mary Grace Blevins [facility] [employer] [facility] 4 11:14:40 Date Recorded Body height Body mass index (BMI) Body weight Body temperature Heart rate Respiratory rate Oxygen saturation Oxygen saturation in Arterial blood by Pulse oximetry Systolic And Diastolic Provider Name and Address Organization Details Last Updated DateTime 4 162.56 cm 24.9 kg/m2 08523.8 9 g 98.6 [degF] 72 /min 14 /min 98 % 98 % 140/82 mm[Hg] Coco Blanco MA [facility] [employer] [facility] 4 12:38:00 Date Recorded Body height Body temperature Body mass index (BMI) Body weight Respiratory rate Oxygen saturation Oxygen saturation in Arterial blood by Pulse oximetry Heart rate Systolic And Diastolic Provider Name and Address Organization Details Last Updated DateTime 5 162.56 cm 98.2 [degF] 23.2 kg/m2 06916.9 7 g 16 /min 98 % 98 % 70 /min 150/82 mm[Hg] Lizzette Wilbert [facility] [employer] [facility] 5 15:37:49 Social History Question Answer Notes LastModified by Organizat ion Details LastModified Time Tobacco Smoking Status Never Smoker Not Available [employer] 01/26/2023 02:24:19 Do You Have An Advance Directive? No Information not available 12/01/2023 Are You Blind Or Do You Have Difficulty Seeing? No [email or web address] Information not available 03/01/2024 Is Blood Transfusion Acceptable In An Emergency? No Information not available 06/18/2025 What Is Your Level Of Caffeine Consumption? Moderate [id number] Information not available 01/26/2023 How Much Tobacco Do You Chew? None MIGRATION.[id number] Information not available 01/26/2023 In The 14 Days Before Symptom Onset, Have You Had Close Contact With A Laboratory-confi rmed COVID-19 While That Case Was Ill? No [id number] Information not available 01/26/2023 In The 14 Days Before Symptom Onset, Have You Had Close Contact With A Person Who Is Under Investigation For COVID-19 While That Person Was Ill? No MIGRATION.[id number] Information not available 01/26/2023 Are You Deaf Or Do You Have Serious Difficulty Hearing? Yes Tinnitus Information not available 12/01/2023 What Type Of Diet Are You Following? REGULAR [id number] Information not available 01/26/2023 Which Illicit Or Recreational Drugs Have You Used? None MIGRATION.[id number] Information not available 01/26/2023 What Is The Highest Grade Or Level Of School You Have Completed Or The Highest Degree You Have Received? [id number] Information not available 12/01/2023 How Many Days Of Moderate To Strenuous Exercise, Like A Brisk Walk, Did You Do In The Last 7 Days? 0 Information not available 06/18/2025 What Is The Fluoride Status Of Your Home? Unknown Information not available 12/01/2023 Are There Any Guns Present In Your Home? No Information not available 12/01/2023 Where [facility] You Live? [facility] Information not available 12/01/2023 Advance Directive- Providers Has Reviewed Directive And Consents To Follow Them (insert Provider Name With Any Objectives In Notes Field) No Information not available 06/18/2025 Presence Of Domestic Violence No Information not available 06/18/2025 Guns Present In The Home? No Information not available 06/18/2025 Are You Able To Care For Yourself? Yes [email or web address] Information not available 03/01/2024 Are You Blind Or Do Yo Have Difficulty Seeing? No [email or web address] Information not available 03/01/2024 Are You Deaf Or Do You Have Serious Difficulty Hearing? No [email or web address] Information not available 03/01/2024 General Stress Level? Low Information not available 06/18/2025 Live Alone Of With Others? Alone [email or web address] Information not available 03/01/2024 Do You Have A Medical Power Of Rotoformer Backtender? Yes Information not available 12/01/2023 What Was The Date Of Your Most Recent Tobacco Screening? 01/10/2025 [email or web address] Information not available 01/10/2025 How Many Children Do You Have? 3 Information not available 06/18/2025 Do You Have Any Pets? No Information not available 12/01/2023 What Is Your Relationship Status? Information not available 12/01/2023 Do You Use Your Seat Belt Or Car Seat Routinely? Yes Information not available 12/01/2023 Do You Have Smoke And Carbon Monoxide Detectors In Your Home? Yes Information not available 12/01/2023 Are You Passively Exposed To Smoke? No Information not available 12/01/2023 Are There Any Smokers In Your House? No Information not available 12/01/2023 How Much Tobacco Do You Smoke? No MIGRATION.[id number] Information not available 01/26/2023 What Types Of Sporting Activities Do You Participate In? 0 Information not available 06/18/2025 Has Tobacco Cessation Counseling Been Provided? No N/a Information not available 12/01/2023 Have You Recently Traveled Abroad? No MIGRATION.[id number] 20597 Information not available 01/26/2023 Do You Have Difficulty Walking Or Climbing Stairs? No Information not available 12/01/2023 Do You Have Any Dietary Restrictions? No MIGRATION.72477 [id number] Information not available 01/26/2023 Sex: Female Functional Status Question Answer Note LastModified by Organizat ion Details LastModified Time Do you use any illicit or recreational drugs? No Information not available 12/01/2023 Do you or have you ever used any other forms of tobacco or nicotine? No Information not available 12/01/2023 What is your level of alcohol consumption? None MIGRATION.23203 [id number] Information not available 01/26/2023 Do you or have you ever used smokeless tobacco? Never used smokeless tobacco MIGRATION.88367 [id number] Information not available 01/26/2023 Are you currently employed? No Information not available 12/01/2023 Do you have transportation difficulties? No Information not available 03/01/2024 Are you able to walk independently without assistance or assistive devices? [email or web address] Information not available 12/01/2023 Do you have difficulty doing errands alone? does not drive Information not available 12/01/2023 Are you able to care for yourself independently? Yes Information not available 12/01/2023 Do you have difficulty dressing, bathing, grooming, or toileting? No Information not available 12/01/2023 Do you or have you ever used e-cigarettes or vape? Never used electronic cigarettes MIGRATION.25675 [id number] Information not available 01/26/2023 What is your exercise level? None [email or web address] Information not available 03/01/2024 Mental Status Question Answer Note LastModified by Organizat ion Details LastModified Time Do you feel stressed (tense, restless, nervous, or anxious, or unable to sleep at night)? [id number] Information not available 12/01/2023 Do you have difficulty concentrating, remembering or making decisions? No Information no t available 12/01/2023 Family History Relationship Description Onset Age of this Age Resolved Age Notes LastModified by Organization Details LastModified Time Mother Hypertensive disorder Not available 2023 14:42:54 Mother Disorder of vein Not available 2023 14:43:09 Father Heart disease Not available 2023 14:43:18 Medical History Condition Response NERVE DISEASE N BLINDNESS N RHEUMATIC FEVER N KIDNEY STONES N BLADDER PROBLEMS N MRSA N OTHER # 1 N POLIO N LUNG DISEASE/DISORDER N HISTORY OF DRUG ABUSE N COPD Y RADIATION / CHEMOTHERAPY N Other # 2 N BLOOD DISEASES N EAR OR HEARING PROBLEMS N MUMPS N SHINGLES N BOWEL PROBLEMS N DEPRESSION (INCLUDING POST ) Y FAILED BACK SYNDROME N STROKE/TIA N ULCERS N BENIGN PROSTATIC HYPERPLASIA N MEASLES N HYPOTENSION N MYOCARDIAL INFARCTION N OBESITY N GERD/NAUSEA Y ANEURYSM N URINARY/BLADDER/KIDNEY PROBLEMS N CORONARY ARTERY DISEASE (CAD) N Do you have Advance directive? N ADDICTION CONCERNS N ENDOMETRIOSIS N Impotence N USE OF BLOOD THINNERS N SKIN PROBLEMS N GASTROINTESTINAL DISORDER N PERIPHERAL VASCULAR DISEASE N MUSCLE,JOINT OR BONE PROBLEMS N GASTROINTESTINAL BLEEDING N BLOOD CLOTS N ASTHMA Y Abdominal Pain Y CATARACTS N ARTERIAL INSUFFICIENCY N ERECTILE DYSFUNCTION N VARICOSITIES N GI PROBLEMS Y Low Testosterone N INFERTILITY N AIDS/HIV N CHEMOTHERAPY / RADIATION Y LIVER DISEASE N MALE HYPOGONADISM N HYPERTENSION Y Deficiency Y TOURETTE'S N ANXIETY DISORDER N BLOOD TRANSFUSION N ANEMIA/BLOOD DISORDER N CHRONIC EAR INFECTIONS N TUBERCULOSIS N GLAUCOMA N FOOT PROBLEM N DIVERTICULITIS N CHICKENPOX N SLEEP APNEA N BACK INJECTIONS N ALLERGIES/HAYFEVER N INFECTIOUS DISEASE N HEART ARRHYTHMIA N PROSTATE N ESRD N INSOMNIA N HIGH CHOLESTEROL / HYPERLIPIDEMIA N HYPERTHYROIDISM N EYE PROBLEMS N PVD N EDEMA N CHRONIC PAIN SYNDROME N HYPOTHYROIDISM Y CONSTIPATION N CAROTID BLOCKAGE N BACK / NECK PROBLEMS N ATHEROSCLEROSIS N BREAST PROBLEMS N DIALYSIS N POLYCYSTIC OVARIES N ECZEMA N OSTEOPOROSIS N ARTHRITIS N NO SIGNIFICANT PAST MEDICAL HISTORY N APPENDICITIS N DIABETES, TYPE N BAD TEETH N VON WILLIBRAND'S DISEASE N ENT N HEARTBURN / REFLUX N GI N AUTISM SPECTRUM DISORDER (ASD) N POST LAMINECTOMY SYNDROME N HEPATITIS / LIVER DISEASE N GOUT N SLEEP DISORDER N ALZHEIMER'S DISEASE N Brain Problems N HERPES N DEMENTIA N HEADACHES/MIGRAINES N SEIZURES/EPILEPSY N VASCULAR DISEASE N PACEMAKER N DIZZINESS N HEART DISEASE/HEART PROBLEMS Y KIDNEY DISEASE N MULTIPLE SCLEROSIS N NEUROPSYCHOLOGICAL N CARDIAC ARRHYTHMIA N CANCER: SPECIFY Y ATRIAL FIBRILLATION N Gall Stones N PULMONARY EMBOLISM N AUTOIMMUNE DISEASE N Gynecological HistoryNo gynecological history recorded. Obstetrics History GPAL:G 0 P 0 0 0 0 Immunizations Vaccine Type Date Status Note Provider Abdirashid sal and Address Organization Details Recorded Time Influenza, high-dose, quadrivalent, PF 12/01/2023 completed David Ballard MD [address] [facility], [facility] [address], [place], [address], [facility] [email or web address] 12/01/2023 17:43:38 Past Encounters Encounter ID Performer Location Encounter Start Date Encounter Closed Date Diagnosis/Indication Diagnosis SNOMED-CT Code Diagnosis ICD10 Code Diagnosis IMO Codes Diagnosis Note [id number] Dee Kirkland MD [facility] [address] [place] [address] 02/02/2021 00:00:00 02/02/2021 15:43:37 [id number] MD ARY Coffey IGRATION_ DEFAULT_1 _1 , 02/19/2021 00:00:00 02/19/2021 17:35:04 [id number] [facility] [address] [place] [address] 03/04/2021 00:00:00 03/04/2021 18:47:33 [id number] MD ARY Coffey IGRATION_ DEFAULT_1 _1 , 06/04/2021 00:00:00 06/04/2021 18:45:25 [id number] MD ARY Coffey IGRATION_ DEFAULT_1 _1 , 09/17/2021 00:00:00 09/17/2021 18:28:25 [id number] Kolby Decker MD [facility] [address] [address] 09/29/2021 00:00:00 09/29/2021 14:56:13 [id number] Kolby Decker MD [facility] [address] [address] 10/13/2021 00:00:00 10/13/2021 15:23:23 [id number] Kolby Decker MD [facility] [address] [address] 11/16/2021 00:00:00 11/17/2021 10:48:14 [id number] MD ARY Coffey IGRATION_ DEFAULT_1 _1 , 12/24/2021 00:00:00 12/24/2021 15:55:21 [id number] MD KIMBERLEE [facility] [place] [address] 02/15/2022 00:00:00 02/15/2022 14:30:36 [id number] Dee Kirkland MD [facility] [address] [place] [address] 10/25/2022 00:00:00 10/25/2022 15:56:37 [id number] Dee Kirkland MD [facility] [address] [place] [address] 06/09/2023 14:14:32 06/09/2023 15:49:08 Hypothyroidism 48951028 E03.9 TSH and FT4 in range- continue on LT4 50 mcg daily along with liothyroni ne 5 mcg twice daily. She was reminded to take her levothyrox ine on empty stomach with glass of water and wait one hour to eat or have her coffee in morning and up to 4 hours if ever taking any heartburn or reflux medication s to help optimize absorption . Discussed paleo like diet with restrictio n of GMOs to help with energy and to optimize absorption of vitamins and minerals and reduce inflammati on. Essential hypertension 66375361 I10 Continue on lisinopril , hctz, and metoprolol - patient no longer on diltiazem. Her blood pressure has remained under 130/80 mmHg at last three visits. She is following cardiology per management . Spent up to 25 minutes preparing to see the patient (eg, review of tests), obtaining and/or reviewing separately obtained history, performing a medically appropriat e examinatio n and evaluation , counseling and educating the patient, ordering medication s, tests, along with documentin g clinical informatio n in the electronic health record, independen tly interpreti ng results and communicat ing results to the patient. Patient can be followed by PCP - she is aware of my resignatio n and last day of September 09. If needed her PCP can refer patient to another endocrinol ogist in the area. All questions /concerns answered and refills necessary at visit today. [id number] David garcia MD [facility] [address] [place] [address] 12/01/2023 14:28:07 12/01/2023 15:28:24 Screening - NAD 121779129 Z13.9 C-scope: Not doing this at this time PAP: Not doing thisNo complaints Mammogram: partial L breast mastectomy , on exemestane , given by Dr Dennis Law MD DEXA: Get this Get yearly flu shotGet tdap if not doneGet COVID 19 vaccine and its boostersGe t PCV #13 and #23Get shingrix vaccine RTC in 3 months, do labs, ER if worse Screening for osteoporosis 919390812 Z13.820 Mild chron ic obstructive pulmonary disease 295119214 J44.9 Dr Decker 02/15/2023 , now sees Dr Menchaca [facility] Used to be nebs, breo, ventolin, incruse Essential hypertension 77119911 I10 On lisinopril On HCTZOn metoprolol Dr Kirkland 06/09/[address] Gray will see him 12/02/2022 Hypothyroidism 19805180 E03.9 On levothyrox ine 50mcg dailyOn liothyroni ne 5mg bid Dr Kirkland 06/09/2023 Serum brigid min B12 below reference range 126366954 R79.[address] Abd 10/27/2023 : Diverticul itis, hepatic steatosis Steatotic liver disease 312733811 K76.0 CT Abd 10/27/2023 : Diverticul itis, hepatic steatosis Get labs and US liver Gastroesop hageal reflux disease without esophagitis 771067490 K21.9 On omeprazole 20mg daily, take PRN, get EGD if not done Generalize d anxiety disorder 50656960 F41.1 On clonazepam 2mg tid, advised not to take this so often and only as PRN!Sees Dr Coronado her psychiatri st Administra tion of influenza vaccine 47512197 Z23 Metabolic dysfunction-associate d steatohepatitis 455228237 K75.81 [id number] David garcia MD [facility] Internal Med [facility] [address] [facility], [address] [place] [address] 12/15/2023 14:04:09 12/15/2023 15:25:46 Screening - NAD 826101209 Z13.9 C-scope: Not doing this at this time PAP: Not doing thisNo complaints Mammogram: partial L breast mastectomy , on exemestane , given by Dr Dennis Law MD DEXA: Get this Get yearly flu shotGet tdap if not doneGet COVID 19 vaccine and its boostersGe t PCV #13 and #23Get shingrix vaccine RTC in 3 months, do labs, ER if worse Screening for osteoporosis 105553669 Z13.820 Mild chron ic obstructive pulmonary disease 423378545 J44.9 Dr Decker 02/15/2023 , now sees Dr Menchaca [facility] Used to be nebs, breo, ventolin, incruse Essential hypertension 82990190 I10 On lisinopril On HCTZOn metoprolol Dr Kirkland 06/09/[address] Gray will see him 12/02/2022 Hypothyroidism 11467993 E03.9 On levothyrox ine 50mcg dailyOn liothyroni ne 5mg bid Dr Kirkland 06/09/2023 Serum brigid min B12 below reference range 115276153 R79.[address] Abd 10/27/2023 : Diverticul itis, hepatic steatosis Steatotic liver disease 770280141 K76.0 CT Abd 10/27/2023 : Diverticul itis, hepatic steatosis Get labs and US liver Gastroesop hageal reflux disease without esophagitis 440218649 K21.9 On omeprazole 20mg daily, take PRN, get EGD if not done Generalize d anxiety disorder 05303785 F41.1 On clonazepam 2mg tid, advised not to take this so often and only as PRN!Sees Dr Coronado her psychiatri st Hypercalcemia 72951474 E 83.52 Get a referral to nephrology Hyperlipidemia 01731671 E78.5 On atorvastat in 40mg dailyGet labs Hyperglycemia 19476998 R 73.9 Get labs and see podiatry and eye [id number] David garcia MD [facility] Internal [facility] [address] [facility], [address] [place] [address] 03/01/2024 14:19:28 03/01/2024 15:37:18 Screening - NAD 917438938 Z13.9 C-scope: Not doing this at this time, has seen Dr Alvarado, on prednisone , will refer again PAP: Not doing thisNo complaints Mammogram: partial L breast mastectomy , on exemestane , given by Dr Dennis Law MD DEXA: Get this Get yearly flu shotGet tdap if not doneGet COVID 19 vaccine and its boostersGe t PCV #13 and #23Get shingrix vaccine RTC in 3 months, do labs, ER if worse Screening for osteoporosis 921500817 Z13.820 Mild chron ic obstructive pulmonary disease 652788941 J44.9 Dr Decker 02/15/2023 , now sees Dr Menchaca [facility] Used to be eloy, malcolm, lisa, incruseNwillie on HHNOn prednisone 5mg daily, explained to her today 03/01/2024 that prednisone can cause severe gastritis, and she must wean off, she is very insistent that she will keep taking the prednisone , her CG in the room states that the patient with take 3 prednisone at a timeAdvise d her to get an apt with Dr Menchaca again to discuss this Essential hypertension 54041351 I10 On amiodarone 200mg dailyOn clonidine 0.1mg bid Dr Myers 01/16/2024 On lisinopril 20mg dailyOn HCTZOn metoprolol ER 25mg daily Dr Kirkland 06/09/[address] Gray Hypothyroidism 18652208 E03.9 On levothyrox ine 50mcg dailyOn liothyroni ne 5mg bid Dr Kirkland 06/09/2023 Serum brigid min B12 below reference range 955988757 R79.[address] Abd 10/27/2023 : Diverticul itis, hepatic steatosis Steatotic liver disease 154682707 K76.0 CT Abd 10/27/2023 : Diverticul itis, hepatic steatosisC T Abd: 12/26/2023 : [facility] ER, liver normal Get labs and US liver Gastroesop hageal reflux disease without esophagitis 627705482 K21.9 On omeprazole 20mg daily, take PRN,S/p EGD Dr Royal on prochloper azine for nausea, get another referral to Dr Alvarado Generalize d anxiety disorder 58343440 F41.1 On clonazepam 2mg tid, advised not to take this so often and only as PRN!Sees Dr Coronado her psychiatri st Hypercalcemia 13834120 E 83.52 Get a referral to nephrology Hyperlipidemia 56246068 E78.5 On atorvastat in 40mg dailyGet labs Hyperglycemia 59587071 R 73.9 Get labs and see podiatry and eye Leukocytosis 234072488 D 72.829 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 General Surgery [address] [facility] [place] [address] 05/24/2024 11:00:30 06/14/2024 14:42:42 Abdominal pain 00004562 R10.9 [id number] Diego duarte MD [facility] General Surgery [address] [place] [address] 06/07/2024 12:31:18 06/14/2024 13:22:38 Abdominal pain 57846855 R10.9 [id number] David garcia MD [facility] Internal Med [facility] [address] [place] [address] 01/10/2025 15:55:43 01/10/2025 16:36:22 Screening - NAD 713735643 Z13.9 C-scope: Not doing this at this time, has seen Dr Alvarado, on prednisone , will refer again PAP: Not doing thisNo complaints Mammogram: partial L breast mastectomy , on exemestane , given by Dr Dennis Law MD DEXA: Get this, ordered 01/10/2025 OV 01/10/2025 : Recommend she have 24 hour care, she states that she does not want any HH, she lives alone, states that her son lives in [place] and cannot visit her at all as he works 6 days a week, states that she does not want to move to her son's home nor does she want to consider assisted living Get yearly flu shotGet tdap if not doneGet COVID 19 vaccine and its boostersGe t PCV #13 and #23Get shingrix vaccine RTC in 3 months, do labs, ER if worse, she did verbalize her understand ing of the above Screening for osteoporosis 002346329 Z13.820 Mild chron ic obstructive pulmonary disease 851955254 J44.9 Dr Decker 02/15/2023 , now sees Dr Menchaca [facility] Used to be nebs, breo, ventolin, incruseNow on HHNOn prednisone 5mg daily, explained to her today 03/01/2024 that prednisone can cause severe gastritis, and she must wean off, she is very insistent that she will keep taking the prednisone , her CG in the room states that the patient with take 3 prednisone at a timeAdvise d her to get an apt with Dr Menchaca again to discuss this Essential hypertension 91259159 I10 ECHO 11/23/2024 : [facility] On amiodarone 200mg dailyOn clonidine 0.1mg bid Dr Myers 01/16/2024 On lisinopril 20mg dailyOn HCTZOn metoprolol ER 25mg daily Dr Kirkland 06/09/2023 Dr Gray 12/14/2024 : to get ILR implant Hypothyroidism 69971734 E03.9 OV 01/10/2025 :Has not been taking any of the thyroid meds for reasons listed On levothyrox ine 50mcg daily, d/c this too as it is on a recall list 01/10/2025 On liothyroni ne 5mg bid, d/c 01/10/2025 as it does not 'work'Derrick ot do the Unithroid as it made her 'heart race' and she does NOT want any other dose with UnithroidW ill start on Synthroid 50mcgs daily Dr Kirkland 06/09/2023 Serum brigid min B12 below reference range 763449200 R79.[address] Abd 10/27/2023 : Diverticul itis, hepatic steatosis Steatotic liver disease 482832636 K76.0 CT Abd 10/27/2023 : Diverticul itis, hepatic steatosisC T Abd: 12/26/2023 : [facility] ER, liver normal Get labs and US liver Gastroesop hageal reflux disease without esophagitis 269218796 K21.9 On omeprazole 20mg daily, take PRN,S/p EGD Dr Royal on prochloper azine for nausea, get another referral to Dr Alvarado Now see GI Dr Joselito Moore Generalize d anxiety disorder 66693656 F41.1 On clonazepam 2mg tid, advised not to take this so often and only as PRN!Sees Dr Coronado her psychiatri st Hypercalcemia 14097658 E 83.52 Get a referral to nephrology Hyperlipidemia 79624235 E78.5 On atorvastat in 40mg dailyGet labs Hyperglycemia 05173940 R 73.9 Get labs and see podiatry and eye MD Leukocytosis 818222303 D 72.829 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 , advised to d/w her pulmonary MDRepeat the CBC again, may need to see hematology Nausea and vomiting [address] Joselito Moore GI 12/12/2024 , for nausea and vomitingTo ld to stop the metoclopra mide d/t side effects, start on miralax and also get a c-scope, today 01/10/2025 , states that she does NOT want to do a C-scope, understand s the risks for delaying or refusing the recommenda tion for this from the change management consultant [id number] David garcia MD [facility] Internal Med [facility] [address] [facility], [address] [place] [address] 06/18/2025 15:05:39 06/18/2025 16:37:23 Adult health examination 109309987 Z00.00 Screening for disorder 507552097 Z13.9 Screening - NAD 07566286 3 Z13.9 C-scope: Not doing this at this time, has seen Dr Alvarado, on prednisone , will refer again PAP: Not doing thisNo complaints Mammogram: partial L breast mastectomy , on exemestane , given by Dr Dennis Law MD/Cece Cruz DEXA: Get this, ordered 01/10/2025 OV 01/10/2025 : Recommend she have 24 hour care, she states that she does not want any HH, she lives alone, states that her son lives in [place] and cannot visit her at all as he works 6 days a week, states that she does not want to move to her son's home nor does she want to consider assisted living Get yearly flu shotGet tdap if not doneGet COVID 19 vaccine and its boostersGe t PCV #13 and #23Get shingrix vaccine RTC in 3 months, do labs, ER if worse, she did verbalize her understand ing of the above Screening for osteoporosis [id number] Z13.820 Mild chron ic obstructive pulmonary disease [id number] J44.9 Dr Decker 02/15/2023 , now sees Dr Menchaca [facility] Used to be nebs, breo, ventolin, incruseNow on HHNOn prednisone 5mg daily, explained to her today 03/01/2024 that prednisone can cause severe gastritis, and she must wean off, she is very insistent that she will keep taking the prednisone , her CG in the room states that the patient with take 3 prednisone at a time Advised her to get an apt with Dr Menchaca again to discuss this referred 06/18/2025 Essential hypertension [id number] I10 ECHO 11/23/2024 : [facility] On amiodarone 200mg dailyOn clonidine 0.1mg bid Dr Myers 01/16/2024 On lisinopril 20mg dailyOn HCTZ 25mg dailyOn metoprolol ER 25mg daily Dr Kirkland 06/09/2023 Dr Gray 12/14/2024 : to get ILR implantRef erred 06/18/2025 Hypothyroidism 51787803 E03.9 OV 01/10/2025 :Has not been taking any of the thyroid meds for reasons listed On levothyrox ine 50mcg daily, d/c this too as it is on a recall list 01/10/2025 On liothyroni ne 5mg bid, d/c 01/10/2025 as it does not 'work'Derrick ot do the Unithroid as it made her 'heart race' and she does NOT want any other dose with Unithroid On Synthroid 50mcgs daily Dr Kirkland 06/09/2023 Serum brigid min B12 below reference range 796699903 R79.[id number] Abd 10/27/2023 : Diverticul itis, hepatic steatosis Steatotic liver disease 732622920 K76.0 CT Abd 10/27/2023 : Diverticul itis, hepatic steatosisC T Abd: 12/26/2023 : [facility] ER, liver normalUS liver 03/15/2025 : Neg Gastroesop hageal reflux disease without esophagitis [id number] K21.9 On omeprazole 20mg daily, take PRN,S/p EGD Dr Royal on prochloper azine for nausea, get another referral to Dr Alvarado Now see GI Dr Joselito Moore Generalize d anxiety disorder 79835087 F41.1 On clonazepam 2mg tid, advised not to take this so often and only as PRN!Sees Dr Coronado her psychiatri st Hypercalcemia 48097759 E 83.52 Get a referral to nephrology Hyperlipidemia 47834792 E78.5 On atorvastat in 40mg dailyGet labs Hyperglycemia 26187263 R 73.9 Get labs and see podiatry and eye MD Leukocytosis 800569306 D 72.829 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 , advised to d/w her pulmonary MDRepeat the CBC again, may need to see hematology Nausea and vomiting [address] Joselito Moore GI 12/12/2024 , for nausea and vomitingTo ld to stop the metoclopra mide d/t side effects, start on miralax and also get a c-scope, today 01/10/2025 , states that she does NOT want to do a C-scope, understand s the risks for delaying or refusing the recommenda tion for this from the change management consultant Severe dementia 77133114 01 17613 F03.C0 [id number] SLUM test score was 7/30Get a referral to neurologyG et HH and PTStates that she does live with her son ,but she does her own IADLs and ADLs as he is disabledOf fered to see NH care or Assisted Living, absolutely refuses this states 'no way gene' will 'i go to such places'She is AO 3 Health Concerns Section Related Observation LastModified by Organization Detai ls LastModified Time None Recorded Concern Status LastModified by Organization Details LastModified Time None Recorded Advance Directives Directive N: Payers Insurance Date Sequence Insurance Name Policy Number Policy Morgan Covered Member ID Morgan Member ID Guarantor Name 09/16/2025 1 [place] Dolores Aguiar Partha [id number] Dolores Stefania Gross 09/16/2025 2 AARP (MEDICARE SUPPLEMENT) Dolores Partha [id number] Dolores Gross Notes Date Note Type Note Provider Name and Address Organization Details Recorded Time 03/01/2024 text/html OV 12/01/2023:Here to establish care Past Hx:HTNHLDDMIICOPDD epression Reviewed social family and surgical history Here with her friend, wants to get labs and then discuss her use of medications as she wants to get 'off' the pills OV 12/15/2023: Here as she wants to discuss her labs, she feels well otherwise, would like to get a referral to GI as she continues to have gastritis, has seen Dr Alvarado and she prefers she sees him again OV 03/01/2024: Here for her f/u apt, she is doing well at this time David Ballard MD [address], [place], [address], [employer] 03/14/2024 17:43:48 05/24/2024 text/html patient presents with multiple complaints including nausea, occasional vomiting, feeling weak, acid in her throat, mild abdominal pain throughout her abdomen occasionally. Denies diarrhea constipation. Denies fevers or chills. This is been going on for a year and she feels miserable Diego Lay MD [address], [place], [address], [facility] [employer] 05/24/2024 14:55:12 06/07/2024 text/html patient with a multitude of complaints including stomach gas, nausea vomiting abdominal discomfort. Has had a multitude of test. Following up on HIDA scan Diego Lay MD [address], [place], [address], [facility] 06/07/2024 14:46:28 01/10/2025 text/html OV 12/01/2023:Here to establish care Past Hx:HTNHLDDMIICOPDD epression Reviewed social family and surgical history Here with her friend, wants to get labs and then discuss her use of medications as she wants to get 'off' the pills OV 12/15/2023: Here as she wants to discuss her labs, she feels well otherwise, would like to get a referral to GI as she continues to have gastritis, has seen Dr Alvarado and she prefers she sees him again OV 03/01/2024: Here for her f/u apt, she is doing well at this time OV 01/10/2025: Here for her routine apt, she feels well today David Ballard MD [address], [place], [address], [employer] 01/10/2025 16:57:25 06/18/2025 text/html OV 12/01/2023:Here to establish care Past Hx:HTNHLDDMIICOPDD epression Reviewed social family and surgical history Here with her friend, wants to get labs and then discuss her use of medications as she wants to get 'off' the pills OV 12/15/2023: Here as she wants to discuss her labs, she feels well otherwise, would like to get a referral to GI as she continues to have gastritis, has seen Dr Alvarado and she prefers she sees him again OV 03/01/2024: Here for her f/u apt, she is doing well at this time OV 01/10/2025: Here for her routine apt, she feels well today OV 06/18/2025: Here for her f/u apt she is doing well, not aware of her med list David Ballard MD [address], [place], [address], [employer] 06/20/2025 19:02:19 OBGyn Episode No OBEpisode recorded.
--- OUTSIDE RECORDS SUMMARY | 2025-09-17 18:58 | XMS_ITS | Encounter Summary ---
Author Organization [facility] Address [address] [address] Care Team Providers Care Slot Floorperson Name Role Phone Hector Licea DO Primary Care Provider Hector Licea DO Primary Care Provider No, Physician Primary Care Provider Barak Christina MD Primary Care Provider [phone] No, Physician Primary Care Provider [phone] No, Physician Primary Care Provider [phone] Dennis Law MD Unavailable Barak Christina MD Primary Care Provider Crystal Gaitan MD PhD Unavaila ble Sherrill Traylor MD Unavailable Tenisha Juan MD Primary Care Provider Susan Bess Primary Care Provider No, Physician Primary Care Provider [phone] Marilu Nation NP Unavailable Manuel Ballard MD Primary Care Provide r Encounter Details Date Type Department Care Team (Late st Contact Info) Description 12/20/2016 Orders Only [facility] ProviderHelga MD [place] [address] Social History Tobacco Use Types Packs/Day Years Used Date Smoking Tobacco: Never Alcohol Use Standard Drinks/Week Comments No 0 (1 standard drink = 0.6 oz pur e alcohol) Comments Unknown Sex and Gender Information Value Date Recorded Sex Assigned at Not on file Legal Sex Female 3:23 AM FLAT OPTICAL ELEMENT MAKER Gender Identity Not on file Sexual Orientation [...] COVID: Suspected 12/24/2022 12/24/2022 12/24/2022 7:05 PM FLAT OPTICAL ELEMENT MAKER documented as of this encounter Care Teams Slot Floorperson Relationship Specialty Start Date End Date Hector Licea DO PCP - General 02/25/17 01/26/21 Hector Licea DO PCP - General 01/14/16 02/24/17 No, Physician PCP - General 01/27/21 03/25/21 Barak Christina MD PCP - General 03/26/21 04/05/21 No, Physician PCP - General 04/06/21 04/07/21 No, Physician PCP - General 04/08/21 05/11/21 Barak Christina MD PCP - General 05/12/21 02/16/23 Tenisha Juan MD [address] [facility] [place] [address] PCP - General Internal Medicine 02/17/23 04/20/23 Susan Bess PA [address] [facility] [place] [address] PCP - General Family Medicine 04/21/23 08/02/23 No, Physician PCP - General 08/03/23 01/26/24 Manuel Ballard MD [address] [facility] [address] [place] [address] PCP - General Internal Medicine 01/27/24 Dennis Law MD [address] [facility], [address] [address] Consulting Physician Medical Oncology 04/22/21 Crystal Gaitan MD PhD [address] [facility] MEDICAL ONCOLOGY, [address] [address] Surgeon Surgical Oncology 05/28/21 Sherrill Traylor MD [address] [place] [address] Radiation Oncologist Radiation Oncology 07/16/21 Marilu Nation NP [address] [facility] [place] [address] Nurse Practitioner Gastroenterology 10/26/23 documented as of this encounter
--- OUTSIDE RECORDS SUMMARY | 2025-09-17 18:58 | XMS_ITS | Clinical Summary ---
Author Organization [facility] [address] Address [address] [place] [address] Care Team Providers Care Simulation Software Engineer Name Role Phone Dennis Law MD Unavailable [...] 1 tablet (50 mcg total) by mouth food service before breakfast Active clonazePAM (KlonoPIN) 2 mg [...] CDT): Per patient diagnosed with diverticulitis at [facility] a few months ago and was treated with antibiotics. 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 not feeling good, nervous Pulse 98 02/01/2025 1:38 PM MORALS SQUAD POLICE OFFICER Temperature 36.6 C (97.9 F) 02/01/2025 1:38 PM MORALS SQUAD POLICE OFFICER Respiratory Rate 18 02/01/2025 1:38 PM MORALS SQUAD POLICE OFFICER Oxygen Saturation 95% 02/01/2025 1:3 8 PM MORALS SQUAD POLICE OFFICER Inhaled Oxygen Concentration - - Weight 60.8 kg (134 lb) 02/01/2025 1:38 PM MORALS SQUAD POLICE OFFICER Height 156.2 cm (5' 1.5) 02/01/2025 1: 38 PM MORALS SQUAD POLICE OFFICER Body Mass Index 24.91 02/01/2025 1:38 PM MORALS SQUAD POLICE OFFICER Plan of Treatment Health Maintenance Due Date [...] breast in female, estrogen receptor positive (HCC) exterminator helper (current) use of aromatase inhibitors from Last [...] Most Recently Relevant to Health Maintenance [facility] AAR MEDICARE Advance Directives For more information, please contact: [phone] * Full Code (Latest Code Status on File) Date Activated Date Inactivated Comments 08/09/2024 6:57 PM 08/11/2024 8:20 PM Care Teams Simulation Software Engineer Relationship Specialty Start Date End Date Manuel Ballard MD [address] [address] PCP - General Internal Medicine 01/27/24 Dennis Law MD [address] [facility], [address] [address] Consulting Physician Medical Oncology 04/22/21 Crystal Gaitan MD PhD [address] [facility], [address] [address] Surgeon Surgical Oncology 05/28/21 Sherrill Traylor MD [address] [place] [address] Radiation Oncologist Radiation Oncology 07/16/21 Marilu Nation NP [address] [place] [address] Nurse Practitioner Gastroenterology 10/26/23
--- OUTSIDE RECORDS SUMMARY | 2025-09-17 18:58 | XMS_ITS | Encounter Summary ---
Author Organization [facility] Address [address] [place] [address] Phone Care Team Providers Care Pit Shovel Operator Name Role Phone Dennis Law MD Unavailable Barak Christina MD Primary Care Provider [phone] Crystal Gaitan MD PhD Unavaila ble Sherrill Traylor MD Unavailable [phone] Tenisha Juan MD Primary Care Provider [phone] Susan Bess Primary Care Provider [phone] No, Physician Primary Care Provider [phone] Marilu Nation NP Unavailable Manuel Ballard MD [...] on file Legal Sex Female 3:23 AM CREATIVE SERVICES DIRECTOR Gender Identity Not on file Sexual Orientation [...] COVID: Suspected 12/24/2022 12/24/2022 12/24/2022 7:05 PM CREATIVE SERVICES DIRECTOR documented as of this encounter Care Teams Pit Shovel Operator Relationship Specialty [place] [address] [place] [address] MEDICAL ONCOLOGY, [address] [address] PCP - General 05/12/21 02/16/23 Tenisha Juan MD [address] [place] [address] PCP - General Internal Medicine 02/17/23 04/20/23 Susan Bess PA [address] [place] [address] PCP - General Family Medicine 04/21/23 08/02/23 No, Physician PCP - General 08/03/23 01/26/24 Manuel Ballard MD [address] [facility] [address] [place] [address] PCP - General Internal Medicine 01/27/24 Dennis Law MD [address] [facility], [address] [address] Consulting Physician Medical Oncology 04/22/21 Crystal Gaitan MD PhD [address] [facility] MEDICAL ONCOL[facility], [address] [address] Surgeon Surgical Oncology 05/28/21 Sherrill Traylor MD [address] [place] [address] Radiation Oncologist Radiation Oncology 07/16/21 Marilu Nation NP Nurse Practitioner Gastroenterology 10/26/23 documented as of this encounter
--- OUTSIDE RECORDS SUMMARY | 2025-09-17 18:58 | XMS_ITS ---
Author Organization [facility] [address] Address [address] [place] [address] Care Team Providers Care Meat Press Operator Name Role Phone Dennis Law MD [...] CDT): Per patient diagnosed with diverticulitis at [facility] a few months ago and was treated with antibiotics. 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
--- OUTSIDE RECORDS SUMMARY | 2025-09-17 18:58 | XMS_ITS | Clinical Summary ---
Author Organization [facility] Address [address] [place] [address] Phone Care Team Providers Care Buggy Loader Name Role Phone Unavailable Primary Care Provider [...] of Treatment Not on file Insurance MEDICARE [facility]
--- OUTSIDE RECORDS SUMMARY | 2025-09-17 18:58 | XMS_ITS | Data Portability ---
Author Organization [facility] Address [address] [place] [address] Assessment No assessment recorded. Plan of Treatment Reminders Order Date Submit Date Provider Last Modified By Organization Details Last Modified Time Details Appointments NEW PATIENT 10 2024 09:30A M Sonny Menchaca MD Not available Not available Not available Lab SARS CoV 2 RNA (COVID- 19), QL, arch pad cementer-PCR , respira tory specime n - [place] ( waiting ) 2019 020 [facility] (Lab), [address] [place], [address], 09/05/2020 06:37:48 Referral None recorde d. Procedures None recorde d. Surgeries None recorde d. Imaging None recorde d. Medication Orders None recorde d. Patient TargetsNo targets recorded. Patient Instructions Encounter Date Encounter Id Patient Instructions Last Modified By Organization Details Last Modified Time 09/03/2020 [id number] Reviewed the following recommendations: -Stay home and [...] CoV 2 RNA (COVI D-19) , QL, arch pad cementer-P CR, respi rator y speci men sars - cov - 2 PCR NEGATI VE mL Not Available [facility] (Lab) [address], [place], [address], 09/05/2020 06:37:48 09/03/2009/03/2020 SARS CoV 2 RNA (COVI D-19) , QL, arch pad cementer-P CR, respi rator y speci men covidcom1 [...] of this test metho d. Not Available [facility] (Lab) [address], [place], [address], 09/05/2020 06:37:48 09/03/2009/03/2020 SARS CoV 2 RNA (COVI D-19) , QL, arch pad cementer-P CR, respi rator y speci men covidcom2 Posit maggie resul ts are indic ative of the prese nce of SARS- CoV-2 RNA and do not rule out bacte rial infec tion or co-in fecti on with other virus es. Not Available [facility] (Lab) [address], [place], [address], 09/05/2020 06:37:48 09/03/2009/03/2020 SARS CoV 2 RNA (COVI D-19) , QL, arch pad cementer-P CR, respi rator y speci men covidcom3 Test resul ts shoul d be used along with other clini galindo obser vatio ns, patie nt histo ry, epide miolo gical infor matio n and labor atory data in [facility] suero the diagn osis. Not Available [facility] (Lab) [address] [place], [address], 09/05/2020 06:37:48 09/03/20 20 09/03/2020 SARS CoV 2 RNA (COVI D-19) , QL, arch pad cementer-P CR, respi rator y speci men covidcom4 This test has recei cliff FDA Emerg ency Use Autho rizat ion and has been verif ied by [facility] . This test is [...] or revok ed soone r. Not Available [facility] (Lab) [address], [place], [address], 09/05/2020 06:37:48 09/03/20 20 09/03/2020 SARS CoV 2 RNA (COVI D-19) , QL, arch pad cementer-P CR, respi rator y speci men covidcom5 [facility] is certi fied under CLIA- 88 as quali fied to perfo rm high compl exity testi ng. This testi ng was perfo rmed in the [facility] [place] [address] (CLIA Licen se #[id number] 40651 5, CAP #[id number], AU-ID #[id number]). Not Available [facility] (Lab) [address], [place], [address], 09/05/2020 06:37:48 09/03/20 09/03/2020 SARS CoV 2 RNA (COVI D-19) , QL, arch pad cementer-P CR, respi rator y speci men covidcom6 Facts heet for healt hcare provi ders: https ://ww w.fda .gov/ media /1362 56/do wnloa d Facts heet for patie nts: https ://ww w.fda .gov/ media /1362 57/do wnloa d Not Available [facility] ([facility]) [address] [place], [address], 09/05/2020 06:37:48 06/18/20 24 06/20/2024 JULY (anti [...] Patte rns (ICAP ). Perfo rmed at: [address] [address] Lab Direc tor: Sander puga PhD, Phone : [phone] Not Available Not Available 09/03/2025 04:57:05 06/18/20 24 06/19/2024 ccp (cycl ic citru llina didier pepti de) iga+i gg, serum ccp antibodies IgG/IgA text: 0-19 Negat maggie <20 Weak posit maggie 20 - 39 Moder ate posit maggie 40 - 59 Stron g posit maggie >59 Perfo rmed at: [address] [address] Lab Direc tor: Sander puga PhD, Phone : [phone] Not Available Not Available 09/03/2025 04:57:05 06/18/20 [...] ingris No observ ation record ed. [email or web address] [facility] [address] [place], [address], 11/16/2021 17:42:20 Result Notes None recorded. Medical [...] /min 18 /min 97.9 [degF] 23.2 kg/m2 17048.2 3 g 184/96 mm[Hg] Vanesa Holliday LPN [...] ICD10 Code Diagnosis IMO Codes Diagnosis Note [id number] LILY Kate [address] [place] [address] 09/03/2020 15:06:05 09/04/2020 08:19:37 Viral screening [id number] Z11.59 Health Concerns Section Related Observation LastModified by Organization Detai ls LastModified Time None Recorded Concern Status LastModified by Organization Details LastModified Time None Recorded Advance Directives Directive None Recorded Payers Insurance Date Sequence Insurance Name Policy Number Policy Morgan Covered Member ID Morgan Member ID Guarantor Name 09/03/2020 2 AARP (MEDICARE SUPPLEMENT) Meryl Chavis [id number] Meryl Chavis 09/04/2020 [place] [place] FQ Kristin Chavis [id number] Meryl Chavis 09/03/2020 1 [place] Kristin Chavis [id number] Meryl Chavis 07/04/2025 1 [place] Kristin Chavis [id number] Meryl Chavis Notes Date Note Type Note [...] symptoms HUBERT VARGAS NP Attn: Accounting,[address] [facility], [place], [address], [place] [facility] 09/03/2020 15:29:47 OBGyn Episode No OBEpisode recorded.
--- OUTSIDE RECORDS SUMMARY | 2025-09-17 18:58 | XMS_ITS | Encounter Summary ---
Author Organization [facility] Address [address] [place] [address] Phone Care Team Providers Care Sheriff Officer Name Role Phone Dennis Law MD Unavailable Crystal Gaitan MD PhD Unavaila ble Sherrill Traylor MD Unavailable [phone] Marilu Nation NP Unavailable Manuel Ballard MD [...] on file Legal Sex Female 3:23 AM DECONTAMINATION TECHNICIAN Gender Identity Not on file Sexual Orientation [...] on filedocumented in this encounter Care Teams Sheriff Officer Relationship Specialty Start Date End Date Manuel Ballard MD [address] [facility] [address] [place] [address] PCP - General Internal Medicine 01/27/24 Dennis Law MD [address] [facility] MEDICAL ONCOLOGY, [address] [address] Consulting Physician Medical Oncology 04/22/21 Crystal Gaitan MD PhD [address] [facility], [address] [address] Surgeon Surgical Oncology 05/28/21 Sherrill Traylor MD [address] [facility] [place] [place] [address] Radiation Oncologist Radiation Oncology 07/16/21 Marilu Nation NP [address] [place] [address] Nurse Practitioner Gastroenterology 10/26/23 documented as of this encounter
--- OUTSIDE RECORDS SUMMARY | 2025-09-17 18:58 | XMS_ITS | Clinical Summary ---
Author Organization [facility] Address [address] [place] [address] Phone Care Team Providers Care Gluten Settling Tender Name Role Phone Unavailable Primary Care Provider [...] 36.8 C (98.2 F) 01/21/2023 10:30 PM PARKS AND RECREATION MANAGER Respiratory Rate 10 05/09/2023 2:22 PM CDT Oxygen Saturation 97% 05/09/2023 2:22 PM CDT Inhaled Oxygen Concentration - - Weight 65.8 kg (145 lb) 05/09/2023 2:22 PM CDT Height 162.6 cm (5' 4) 01/21/2023 2:46 PM PARKS AND RECREATION MANAGER Body Mass Index 24.89 01/21/2023 2:46 PM PARKS AND RECREATION MANAGER Plan of Treatment Health Maintenance Due Date [...]
--- OUTSIDE RECORDS SUMMARY | 2025-09-17 18:58 | XMS_ITS | Encounter Summary ---
Author Organization [facility] Address [address] [place] [address] Phone Care Team Providers Care Prepress Operator Name Role Phone Dennis Law MD Unavailable Barak Christina MD Primary Care Provider [phone] Crystal Gaitan MD PhD Unavaila ble Sherrill Traylor MD Unavailable [phone] Tenisha Juan MD Primary Care Provider Susan Bess Primary Care Provider [phone] No, Physician Primary Care Provider [phone] Marilu Nation NP Unavailable Manuel Ballard MD [...] on file Legal Sex Female 3:23 AM MUSEUM SECURITY CHIEF Gender Identity Not on file Sexual Orientation [...] COVID: Suspected 12/24/2022 12/24/2022 12/24/2022 7:05 PM MUSEUM SECURITY CHIEF documented as of this encounter Care Teams Prepress Operator Relationship Specialty Start Date End Date Barak Christina MD [address] [facility], [address] [address] PCP - General 05/12/21 02/16/23 Tenisha Juan MD [address] [place] [address] PCP - General Internal Medicine 02/17/23 04/20/23 Susan Bess PA [address] [place] [address] PCP - General Family Medicine 04/21/23 08/02/23 No, Physician PCP - General 08/03/23 01/26/24 Manuel Ballard MD [address] [facility] 15 [place] [address] PCP - General Internal Medicine 01/27/24 Dennis Law MD [address] [facility], [address] [address] Consulting Physician Medical Oncology 04/22/21 Crystal Gaitan MD PhD [address] [facility] MEDICAL ONCOLOGY, [address] [address] Surgeon Surgical Oncology 05/28/21 Sherrill Traylor MD [address] [place] [address] Radiation Oncologist Radiation Oncology 07/16/21 Marilu Nation NP Nurse Practitioner Gastroenterology 10/26/23 documented as of this encounter
--- OUTSIDE RECORDS SUMMARY | 2025-09-17 18:58 | XMS_ITS | Clinical Summary ---
Author Organization [facility] Address [address] [place] [address] Care Team Providers Care Electrical Engineering Director Name Role Phone Non-Staff, Provider Primary Care [...] this topic Medical Devices Implanted Type Area Patient Safety Officer Device Identifier Shelf Expiration Date Model / Serial / Lot Plate Lyman Cf Capsule Delivery Dev Implanted:Qty: 1 on 09/13/2023 by Sami Cruz DO at [facility] N/A: Esophagus [employer] 10/08/2024 / [id number] / [id number] Insurance MEDICARE [facility] Advance Directives Documents on File Type Date Recorded Patient Cartographic Aide Expl anation Guardianship - Temporary 09/02/2023 8:04 AM MEENA Blackman cell: [phone] Care Teams Electrical Engineering Director Relationship Specialty Start Date End Date Non-Staff, Provider PCP - General UNKNOWN PHYSICIAN SPECIALTY 09/13/23
== END 2025-09-17 16:02 | disposition home or self-care (01) ==
PROVIDERS: Emergency Provider Student in an Organized Health Care Education/Training Program; PCP Internal Medicine
DX: B02.21 Postherpetic geniculate ganglionitis (principal); B02.22 Postherpetic trigeminal neuralgia; J44.9 Chronic obstructive pulmonary disease, unspecified; I10 Essential (primary) hypertension; I48.91 Unspecified atrial fibrillation; E03.9 Hypothyroidism, unspecified; K58.9 Irritable bowel syndrome, unspecified; K21.9 Gastro-esophageal reflux disease without esophagitis; G47.33 Obstructive sleep apnea (adult) (pediatric); M19.90 Unspecified osteoarthritis, unspecified site; F41.9 Anxiety disorder, unspecified; Z85.3 Personal history of malignant neoplasm of breast; Z96.1 Presence of intraocular lens; Z98.42 Cataract extraction status, left eye; Z98.41 Cataract extraction status, right eye
CPT/HCPCS: 99283; A9270

== ENCOUNTER 2025-09-19 12:47 | Emergency (ER) | payer MEDICARE, SELFPAY ==
--- OUTSIDE RECORDS SUMMARY | 2024-06-29 10:00 | XMS_ITS ---
Author Organization [facility] Address [address] [place] [address] Care Team Providers Care Laborer [place] Name Role Phone RemigioRadEloy Unavailable [phone] Social History Sex Assigned At : Social History Observation Description Sex Assigned At Female Problems Problem Type SNOMED Code ICD Code Onset Dates Problem Status W/U Status Risk Notes Problem Essential hypertension (38463018) Essential (primary) hypertension (I10) Active confirmed Problem Anxiety disorder (783413429) Anxiety disorder, unspecified (F41.9) Active confirmed Problem Gastroesophageal reflux disease with esophagitis (disorder) (809396433) Gastro-esophage al reflux disease with esophagitis, without bleeding (K21.00) Active confirmed Encounters Encounter Location Date Provider Diagnosis [facility] 2043 [facility] 15 [place] [address] 06/29/2024 Eloy Flood Chronic kidney disease, stage [...] Next Appt Details Provider Name:Eloy Flood , 09/25/2025 04:00:00 PM, 2043 [facility], [address], [place], [address], Progress Notes * ZACKERY GROSSOB: 3 (80 yo F)Acc No.[id number]:06/29/2024 Progress Notes Patient: DOLORES AMOR Provider: Ankush GEORGE MD, RosalvaP, F.A.S.N. :1945 A ge:79 Y S ex:Female Date:06/29/2024 Address:[address] [place], [place] [id number] Subjective: * Chief Complaints: * * Medical History: Objective: * Vitals: Assessment: * Assessment: 1. C hronic kidney disease, stage 3 unspecified - N18.30 (Primary) 2 . E ssential (primary) hypertension - I10 3 . A nxiety disorder, unspecified - F41.9? 4. G mariel-esophageal reflux disease with esophagitis, without bleeding - K21.00? Plan: * Treatment: * Billing Information: * Visit Code: 59291 Office Visit, New Pt., Level 5. * Procedure Codes: * Electronic signature of Desmond Flood MD on 09/19/2025 at 01:33 PM CDT Sign off status: Pending * Provider: Ankush GEORGE MD, Evangelist.Carolyn.Sheela.P, F.A.S.N. Date: 0 06/29/2024 Generated for Printing/Faxing/eTransmitting on: 1 01:33 PM CDT
--- OUTSIDE RECORDS SUMMARY | 2024-07-05 11:45 | XMS_ITS ---
Author Organization [facility] Address [address] [place] [address] Care Team Providers Care Radiological Defense Officer Name Role Phone Eloy Flood Unavailable [phone] Social History Sex Assigned At : Social History Observation Description Sex Assigned At Female Encounters Encounter Location Date Provider Diagnosis [facility] [address] [place] [address] 07/05/2024 Eloy Flood Chronic kidney disea se, [...] Name:Eloy Flood , 09/25/2025 04:00:00 PM, 2043 [facility] 15, [place], [address], Progress Notes * ZACKERY GROSSOB: 3 (80 yo F)Acc No.[id number]:07/05/2024 Patient: CAIO AMORLLY Provider: Ankush GEORGE MD, F.A.C.P, F.A.S.N. :1945 A ge:79 Y S ex:Female Date:07/05/2024 Address:[address] [place] [address] Subjective: * Chief Complaints: Objective: Assessment: * Assessment: 1. C hronic kidney disease, stage 3 unspecified - N18.30 (Primary) 2 . E ssential (primary) hypertension - I10 3 . A nxiety disorder, unspecified - F41.9? 4. G mariel-esophageal reflux disease with esophagitis, without bleeding - K21.00? Plan: * Billing Information: * Visit Code: 45731 Office Visit, Est Pt., Level 5. * Procedure Codes: * Electronic signature of Desmond Flood MD on 09/19/2025 at 01:33 PM CDT Sign off status: Pending * Provider: Ankush GEORGE MD, F.A.C.P, F.A.S.N. Date: 0 07/05/2024 Generated for Printing/Faxing/eTransmitting on: 1 01:33 PM CDT
--- OUTSIDE RECORDS SUMMARY | 2024-07-13 08:45 | XMS_ITS ---
Author Organization [facility] Address 1400 [facility] [address] [facility] [address] [place] [address] Care Team Providers Care Bread Room Hand Name Role Phone Eloy Flood Unavailable [phone] Social History Sex Assigned At : Social History Observation Description Sex Assigned At Female Problems Problem Type SNOMED Code ICD Code Onset Dates Problem Status W/U Status Risk Notes Problem Hypothyroidism (66175781) Hypothyroidism, unspecified (E03.9) Active confirmed Encounters Encounter Location Date Provider Diagnosis [facility] 2043 [facility] 15 [place] [address] 07/13/2024 Eloy Flood Chronic kidney disease, stage [...] Name:Eloy Flood , 09/25/2025 04:00:00 PM, 2043 [facility], [facility] 15, [place], [address], Progress Notes * RICCO GROSS: 3 (80 yo F)Acc No.[id number]:07/13/2024 Progress Notes Patient: DOLORES AMOR Provider: Ankush GEORGE MD, F.A.C.P, F.A.S.N. :1945 A ge:79 Y S ex:Female Date:07/13/2024 Address:[address] [place] [address] Subjective: * Chief Complaints: * * Medical [...] Treatment: * Billing Information: * Visit Code: 75637 Office Visit, Est Pt., Level 4. * Procedure Codes: * Electronic signature of Desmond Flood MD on 09/19/2025 at 01:35 PM CDT Sign off status: Pending * Provider: Ankush GEORGE MD, F.A.C.P, F.A.S.N. Date: 0 07/13/2024 Generated for Printing/Faxing/eTransmitting on: 1 01:35 PM CDT
--- OUTSIDE RECORDS SUMMARY | 2024-09-21 08:00 | XMS_ITS ---
Author Organization [facility] Address [address] [place] [address] Care Team Providers Care Yarn Examiner Name Role Phone RemigioRadEloy Unavailable [phone] Medications Medication SIG (Take, Route, Frequency, Duration) Notes Start Date End Date Status Ergocalciferol 1.25 MG (50837 UT) 1 capsule Orally Once a week; Duration: 30 days 07/13/2024 11/09/2024 Active Allopurinol 100 MG 1 tablet Orally Once a day; Duration: 90 day(s) 07/13/2024 04/09/2025 Active Social History Sex Assigned At : Social History Observation Description Sex Assigned At Female Encounters Encounter Location Date Provider Diagnosis [facility] [address] [address] 09/21/2024 Eloy Flood Chronic kidney disease, stage [...] Name:Eloy Flood , 09/25/2025 04:00:00 PM, 2043 [facility] [address], [address], Progress Notes * ZACKERY GROSSOB: 3 (80 yo F)Acc No.[id number]:09/21/2024 Progress Notes Patient: DOLORES AMOR Provider: Ankush GEORGE MD, F.Carolyn.C.P, F.A.S.N. :1945 A ge:79 Y S ex:Female Date:09/21/2024 Address:[address] [place] [address] Subjective: * Chief Complaints: * * Medical History: * Medications: T aking Allopurinol 100 MG Tablet 1 tablet Orally Once a day , stop date 04/09/2025, Taking Ergocalciferol 1.25 MG (19280 UT) Capsule 1 capsule Orally Once a [...] Treatment: * Billing Information: * Visit Code: 57478 Office Visit, Est Pt., Level 4. * Procedure Codes: * Electronic signature of Desmond Flood MD on 09/19/2025 at 01:35 PM CDT Sign off status: Pending * Provider: Ankush GEORGE MD, F.Carolyn.C.P, F.A.S.N. Date: Generated for Printing/Faxing/eTransmitting on: 01:35 PM CDT
--- OUTSIDE RECORDS SUMMARY | 2024-11-23 08:15 | XMS_ITS ---
Author Organization [facility] Address [address] [place] [address] [address] [place] [address] Care Team Providers Care Tax Accountant Name Role Phone Remigio Eloy Unavailable [phone] Social History Sex Assigned At : Social History Observation Description Sex Assigned At Female Encounters Encounter Location Date Provider Diagnosis [facility] 2043 [place] [address] 11/23/2024 Eloy Flood Plan Of Treatment Next Appt Details Provider Name:Eloy Flood , 09/25/2025 04:00:00 PM, [address], [facility], Progress Notes * ZACKERY GROSSOB: 3 (80 yo F)Acc No.[id number]:11/23/2024 Progress Notes Patient: DOLORES AMOR Provider: Ankush GEORGE MD, Natalia.P, F.A.S.N. :1945 A ge:79 Y S ex:Female Date:11/23/2024 Address:[address] [place] [address] Subjective: * Chief Complaints: * * Medical History: Objective: * Vitals: Assessment: Plan: * Treatment: * Billing Information: * Visit Code: * Procedure Codes: * Electronic signature of Desmond Flood MD on 09/19/2025 at 01:36 PM CDT Sign off status: Pending * Provider: Ankush GEORGE MD, CamachoC.P, F.A.S.N. Date: 01/24/2024 Generated for Printing/Faxing/eTransmitting on: 1 01:36 PM CDT
--- OUTSIDE RECORDS SUMMARY | 2024-12-12 11:00 | XMS_ITS ---
Author Organization [facility] Address [address] [id number] [place] [address] Care Team Providers Care Bag Presser Name Role Phone Eloy Flood Unavailable [phone] Social History Sex Assigned At : Social History Observation Description Sex Assigned At Female Encounters Encounter Location Date Provider Diagnosis [place] [facility] 2043 [facility] 15 [place] [address] 12/12/2024 Eloy Flood Chronic kidney disease, stage [...] Name:Eloy Flood , 09/25/2025 04:00:00 PM, 2043 [facility] 15, [place], [address], Progress Notes * ZACKERY GROSSOB: 3 (80 yo F)Acc No.[id number]:12/12/2024 Patient: DOLORES AMOR Provider: Ankush GEORGE MD, F.A.C.P, F.A.S.N. :1945 A ge:79 Y S ex:Female Date:12/12/2024 Address:[address] [place], [place] [id number] Subjective: * Chief Complaints: Objective: Assessment: * Assessment: 1. C hronic kidney disease, stage 2 (mild) - N18.2 (Primary) 2 . H ypokalemia - E87.6 3 . O ther polyuria - R35.89 4 . E ssential (primary) hypertension - I10 Plan: * Billing Information: * Visit Code: 30786 Office Visit, Est Pt., Level 5. * Procedure Codes: * Electronic signature of Desmond Flood MD on 09/19/2025 at 01:34 PM CDT Sign off status: Pending * Provider: Ankush GEORGE MD, F.A.C.P, F.A.S.N. Date: 0 12/12/2024 Generated for Printing/Faxing/eTransmitting on: 1 01:34 PM CDT
--- OUTSIDE RECORDS SUMMARY | 2025-01-30 12:00 | XMS_ITS ---
Author Organization [facility] Address [address] [place] [address] Care Team Providers Care Director Of Community Services Name Role Phone Remigio Eloy Unavailable [phone] Social History Sex Assigned At : Social History Observation Description Sex Assigned At Female Problems Problem Type SNOMED Code ICD Code Onset Dates Problem Status W/U Status Risk Notes Problem Thyroid function tests abnormal (891469015) Abnormal results of thyroid function studies (R94.6) Active confirmed Encounters Encounter Location Date Provider Diagnosis [facility] 2043 [facility] [address] [place] [address] 01/30/2025 Eloy Flood Chronic kidney disease, stage [...] Name:Eloy Flood , 09/25/2025 04:00:00 PM, 2043 [facility], [place] [address], [address], Progress Notes * ZACKERY GROSSOB: 3 (80 yo F)Acc No.[id number]:01/30/2025 Patient: DOLORES AMOR Provider: Ankush GEORGE MD, RosalvaP, F.A.S.N. :1945 A ge:79 Y S ex:Female Date:01/30/2025 Address:[address] [place] [address] Subjective: * Chief Complaints: Objective: Assessment: * [...] Plan: * Billing Information: * Visit Code: 06365 Office Visit, Est Pt., Level 5. * Procedure Codes: * Electronic signature of Desmond Flood MD on 09/19/2025 at 01:33 PM CDT Sign off status: Pending * Provider: Ankush GEORGE MD, Evangelist.Carolyn.Sheela.P, F.A.S.N. Date: 0 01/30/2025 Generated for Printing/Faxing/eTransmitting on: 1 01:33 PM CDT
--- OUTSIDE RECORDS SUMMARY | 2025-02-15 14:00 | XMS_ITS ---
Author Organization [facility] Address [address] [place] [address] Care Team Providers Care Lowerator Operator Name Role Phone Remigio Eloy Unavailable [phone] Social History Sex Assigned At : Social History Observation Description Sex Assigned At Female Encounters Encounter Location Date Provider Diagnosis [place] [facility] 2043 [place] [address] 02/15/2025 Eloy Flood Plan Of Treatment Next Appt Details Provider Name:Eloy Flood , 09/25/2025 04:00:00 PM, [address], [facility], Progress Notes * ZACKERY GROSSOB: 3 (80 yo F)Acc No.[id number]:02/15/2025 Progress Notes Patient: DOLORES AMOR Provider: Ankush GEORGE MD, Natalia.P, F.A.S.N. :1945 A ge:79 Y S ex:Female Date:02/15/2025 Address:[address] [place] [address] Subjective: * Chief Complaints: * * Medical History: Objective: * Vitals: Assessment: Plan: * Treatment: * Billing Information: * Visit Code: * Procedure Codes: * Electronic signature of Desmond Flood MD on 09/19/2025 at 01:34 PM CDT Sign off status: Pending * Provider: Ankush GEORGE MD, Cecilia.C.P, F.A.S.N. Date: 0 02/15/2025 Generated for Printing/Faxing/eTransmitting on: 1 01:34 PM CDT
--- OUTSIDE RECORDS SUMMARY | 2025-08-27 15:00 | XMS_ITS ---
Author Organization [facility] Address [address] [place] [address] Care Team Providers Care Cad Technician Name Role Phone RemigioRadEloy Unavailable [phone] Social History Sex Assigned At : Social History Observation Description Sex Assigned At Female Problems Problem Type SNOMED Code ICD Code Onset Dates Problem Status W/U Status Risk Notes Problem Chronic kidney disease stage 2 (845196694) Chronic kidney disease, stage 2 (mild) (N18.2) Active confirmed Problem Hypo-osmolality and or hyponatremia (686743392) Hypo-osmolality and hyponatremia (E87.1) Active confirmed Problem Syndrome of inappropriate secretion of antidiuretic hormone (45693913) 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 Problem Age-related osteoporosis (898821743) Age-related osteoporosis without current pathological fracture (M81.0) Active confirmed Problem Pain of ear (finding) (888109103) Otalgia, unspecified ear (H92.09) Active confirmed Encounters Encounter Location Date Provider Diagnosis [place] [facility] 2043 [facility] 15 [place] [address] 08/27/2025 Eloy Flood Chronic kidney disease, stage 2 (mild) N18.2 ; Essential (primary) hypertension I10 ; Anxiety disorder, unspecified F41.9 ; Gastro-esophageal reflux disease with esophagitis, without bleeding K21.00 ; Hypothyroidism, unspecified E03.9 ; Abnormal results of thyroid function studies R94.6 ; Hypo-osmolality and hyponatremia E87.1 ; Syndrome of inappropriate secretion of antidiuretic hormone E22.2 ; Age-related osteoporosis without current pathological fracture M81.0 and Otalgia, unspecified ear H92.09 Assessments Encounter Date Diagnosis (ICD Code) Assessment Notes Treatment Notes Treatment Clinical Notes Section Notes 08/27/2025 Chronic kidney disease, stage 2 (mild) (ICD-10 - N18.2) 08/27/2025 Essential (primary) hypertension (ICD-10 - I10) 08/27/2025 Anxiety disorder, unspecified (ICD-10 - F41.9) 08/27/2025 Gastro-esophageal reflux disease with esophagitis, without bleeding (ICD-10 - K21.00) 08/27/2025 Hypothyroidism, unspecified (ICD-10 - E03.9) 08/27/2025 Abnormal results of thyroid function studies (ICD-10 - R94.6) 08/27/2025 Hypo-osmolality and hyponatremia (ICD-10 - E87.1) 08/27/2025 Syndrome of inappropriate secretion of antidiuretic hormone (ICD-10 - E22.2) 08/27/2025 Age-related osteoporosis without current pathological fracture (ICD-10 - M81.0) 08/27/2025 Otalgia, unspecified ear (ICD-10 - H92.09) Plan Of Treatment Next Appt Details Provider Name:Eloy Flood , 09/25/2025 04:00:00 PM, [address], [address], Progress Notes * ZACKERY GROSSOB: 3 (80 yo F)Acc No.[id number]:08/27/2025 Patient: DOLORES AMOR Provider: Ankush GEORGE MD, F.A.C.P, F.A.S.N. :1945 A ge:80 Y S ex:Female Date:08/27/2025 Address:[address] [place] [address] Subjective: * Chief Complaints: Objective: Assessment: * Assessment: 1. C hronic kidney disease, stage 2 (mild) - N18.2 (Primary) 2 . E ssential (primary) hypertension - I10 3 . A nxiety disorder, unspecified - F41.9 ? 4 . G mariel-esophageal reflux disease with esophagitis, without bleeding - K21.00 & #160; 5 . H ypothyroidism, unspecified - E03.9 6 . A bnormal results of thyroid function studies - R94.6 7 . H ypo-osmolality and hyponatremia - E87.1? 8. S yndrome of inappropriate secretion of antidiuretic hormone - E22.2 & #160; 9 . A ge-related osteoporosis without current pathological fracture - M81.0 ?10. O talgia, unspecified ear - H92.09 Plan: * Billing Information: * Visit Code: 60298 Office Visit, Est Pt., Level 5. * Procedure Codes: * Electronic signature of Desmond Flood MD on 09/19/2025 at 01:32 PM CDT Sign off status: Pending * Provider: Ankush GEORGE MD, F.A.C.P, F.A.S.N. Date: 0 08/27/2025 Generated for Printing/Faxing/eTransmitting on: 1 01:32 PM CDT
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
[2025-09-19 12:54] VITALS: BP 187/93; PULSE 80; RESP 18; TEMP 36.6; O2SAT 97
[2025-09-19 13:01] VITALS: O2SAT 100
[2025-09-19 13:29] LABS: Hematocrit 40.4 % (37.0-47.0); Hemoglobin 13.7 g/dL (12.0-15.0); Immature Granulocyte Percent A 0.4 % (0-0.5); Lymphocytes Absolute Auto 1.11 K/mm3 (0.9-3.2); Mean Corpuscular HGB Conc 33.9 g/dl (32-36); Mean Corpuscular Hemoglobin 30.6 pg (26-34); Mean Corpuscular Volume 90.4 fl (80-100); Nucleated Red Blood Cells Absolute Auto 0.000 K/mm3 (0.0-0.012); Nucleated Red Blood Cells Perc 0.0 % (0.0-0.2); Platelet Count Result 325 k/mm3 (150-375); Red Blood Count 4.47 M/mm3 (4.2-5.4); White Blood Count 7.8 K/mm3 (4.5-10.0)
--- OUTSIDE RECORDS SUMMARY | 2025-09-19 13:33 | XMS_ITS | Clinical Summary ---
Author Organization [facility] Address [address] [place] [address] Care Team Providers Care Portal Architect Name Role Phone Non-Staff, Provider Primary Care [...] this topic Medical Devices Implanted Type Area Die Fitter Device Identifier Shelf Expiration Date Model / Serial / Lot Plate Lyman Cf Capsule Delivery Dev Implanted:Qty: 1 on 09/13/2023 by Sami Cruz DO at [facility] N/A: Esophagus [employer] 10/08/2024 / [id number] / [id number] Insurance MEDICARE [facility] Advance Directives Documents on File Type Date Recorded Patient Tools Administrator Expl anation Guardianship - Temporary 09/02/2023 8:04 AM MEENA Blackman cell: [phone] Care Teams Portal Architect Relationship Specialty Start Date End Date Non-Staff, Provider PCP - General UNKNOWN PHYSICIAN SPECIALTY 09/13/23
--- OUTSIDE RECORDS SUMMARY | 2025-09-19 13:34 | XMS_ITS | Clinical Summary ---
Author Organization [facility] Address [address] [address] Care Team Providers Care Business Management Analyst Name Role Phone Soni Ballard MD Primary Care Provider [phone] Social History Tobacco Use Types Packs/Day Years Used Date Smoking Tobacco: Never Assessed Comments Unknown Sex and Gender Information Value Date Recorded Sex Assigned at Not on file Legal Sex Female 4:32 PM EST Gender Identity Not on file Sexual Orientation Not on file Plan of Treatment Health Maintenance Due Date Last Done Comments Pneumococcal Vaccine: 50+ Years (1 of 2 - PCV) 962 Hepatitis B Vaccine (1 of 3 - Risk 3-dose series) 03/29 Influenza Vaccine (#1) 2025 06/28/2021 Insurance Medicare [facility] Care Teams Business Management Analyst Relationship Specialty Start Date End Date Soni Ballard MD [address] [facility], [address] [place] [address] PCP - General Internal Medicine 12/12/23
--- OUTSIDE RECORDS SUMMARY | 2025-09-19 13:34 | XMS_ITS | Clinical Summary ---
Author Organization [facility] Address [address] [place] [address] Phone Care Team Providers Care Chiller Operator Name Role Phone Unavailable Primary Care [...] 36.8 C (98.2 F) 01/21/2023 10:30 PM SUPERINTENDENT GAS DISTRIBUTION Respiratory Rate 10 05/09/2023 2:22 PM CDT Oxygen Saturation 97% 05/09/2023 2:22 PM CDT Inhaled Oxygen Concentration - - Weight 65.8 kg (145 lb) 05/09/2023 2:22 PM CDT Height 162.6 cm (5' 4) 01/21/2023 2:46 PM SUPERINTENDENT GAS DISTRIBUTION Body Mass Index 24.89 01/21/2023 2:46 PM SUPERINTENDENT GAS DISTRIBUTION Plan of Treatment Health Maintenance Due Date [...]
--- OUTSIDE RECORDS SUMMARY | 2025-09-19 13:34 | XMS_ITS | Clinical Summary ---
Author Organization [facility] Address [address] [place] [address] Care Team Providers Care Manager Product Support Name Role Phone Unavailable Primary Care Provider Unavailabl e Source Comments [facility],non-owned Affiliates and Associated Physician Practices is amultiple site organization consisting of ambulatory clinics and hospital sitesin [place], [place], [place] and [place]. This disclosure is being madepursuant to the Care Everywhere program and may not contain all information available regarding this patient. Last updated 18.[facility] Allergies Active Allergy Reactions Criticality Noted Date [...] age to complete this topic Insurance [facility] MEDICARE MEDICARE
--- OUTSIDE RECORDS SUMMARY | 2025-09-19 13:34 | XMS_ITS | Encounter Summary ---
Author Organization [facility] Address [address] [address] Care Team Providers Care Teacher'S Aide Name Role Phone Hector Licea DO Primary Care Provider Hector Licea DO Primary Care Provider No, Physician Primary Care Provider Barak Christina MD Primary Care Provider [phone] No, Physician Primary Care Provider [phone] No, Physician Primary Care Provider [phone] Dennis Law MD Unavailable Barak Christina MD Primary Care Provider Crystal Gaitan MD PhD Unavaila ble Sherrill Traylor MD Unavailable [phone] Tenisha Juan MD Primary Care Provider Susan Bess Primary Care Provider No, Physician Primary Care Provider [phone] Marilu Nation NP Unavailable Manuel Balladr MD Primary Care Provide r Encounter Details Date Type Department Care Team (Late st Contact Info) Description 12/20/2016 Orders Only [facility] ProviderHelga MD [facility] [place] [address] Social History Tobacco Use Types Packs/Day Years Used Date Smoking Tobacco: Never Alcohol Use Standard Drinks/Week Comments No 0 (1 standard drink = 0.6 oz pur e alcohol) Comments Unknown Sex and Gender Information Value Date Recorded Sex Assigned at Not on file Legal Sex Female 3:23 AM TEMPLATE MAKER Gender Identity Not on file Sexual [...] COVID: Suspected 12/24/2022 12/24/2022 12/24/2022 7:05 PM TEMPLATE MAKER documented as of this encounter Care Teams Teacher'S Aide Relationship Specialty Start Date End Date Hector Licea DO PCP - General 02/25/17 01/26/21 Hector Licea DO PCP - General 01/14/16 02/24/17 No, Physician PCP - General 01/27/21 03/25/21 Barak Christina MD PCP - General 03/26/21 04/05/21 No, Physician PCP - General 04/06/21 04/07/21 No, Physician PCP - General 04/08/21 05/11/21 Barak Christina MD PCP - General 05/12/21 02/16/23 Tenisha Juan MD [address] [facility] [place] [address] PCP - General Internal Medicine 02/17/23 04/20/23 Susan Bess PA [address] [facility] [place] [address] PCP - General Family Medicine 04/21/23 08/02/23 No, Physician PCP - General 08/03/23 01/26/24 Manuel Ballard MD [address] [facility] 15 [place] [address] PCP - General Internal Medicine 01/27/24 Dennis Law MD [address] [facility], [address] [address] Consulting Physician Medical Oncology 04/22/21 Crystal Gaitan MD PhD [address] [facility] MEDICAL ON[facility]Y, [address] [address] Surgeon Surgical Oncology 05/28/21 Sherrill Traylor MD [address] [place] [address] Radiation Oncologist Radiation Oncology 07/16/21 Marilu Nation NP [address] [facility] [place] [address] Nurse Practitioner Gastroenterology 10/26/23 documented as of this encounter
--- OUTSIDE RECORDS SUMMARY | 2025-09-19 13:35 | XMS_ITS | Encounter Summary ---
Author Organization [facility] Address [address] [place] [address] Phone Care Team Providers Care Mechanical Intern Name Role Phone Dennis Law MD Unavailable Barak Christina MD Primary Care Provider [phone] Crystal Gaitan MD PhD Unavaila ble Sherrill Traylor MD Unavailable [phone] Tenisha Juan MD Primary Care Provider [phone] Susan Bess Primary Care Provider [phone] No, Physician Primary Care Provider [phone] Marilu Nation NP Unavailable Manuel Ballard MD [...] on file Legal Sex Female 3:23 AM PIE FILLER Gender Identity Not on file Sexual Orientation [...] COVID: Suspected 12/24/2022 12/24/2022 12/24/2022 7:05 PM PIE FILLER documented as of this encounter Care Teams Mechanical Intern Relationship Specialty Start Date End Date Barak Christina MD [address] [facility], [address] [address] PCP - General 05/12/21 02/16/23 Tenisha Juan MD [address] [place] [address] PCP - General Internal Medicine 02/17/23 04/20/23 Susan Bess PA [address] [place] [address] PCP - General Family Medicine 04/21/23 08/02/23 No, Physician PCP - General 08/03/23 01/26/24 Manuel Ballard MD [address] [facility] 15 [place] [address] PCP - General Internal Medicine 01/27/24 Dennis Law MD [address] [facility], [address] [address] Consulting Physician Medical Oncology 04/22/21 Crystal Gaitan MD PhD [address] [facility]Y, [address] [address] Surgeon Surgical Oncology 05/28/21 Sherrill Traylor MD [address] [place] [address] Radiation Oncologist Radiation Oncology 07/16/21 Marilu Nation NP Nurse Practitioner Gastroenterology 10/26/23 documented as of this encounter
--- OUTSIDE RECORDS SUMMARY | 2025-09-19 13:35 | XMS_ITS | Patient Health Record ---
Author Organization [facility] Address [address] [place] [address] Care Team Providers Care Product Marketing Programs Manager Name Role Phone Eloy Flood Unavailable [phone] Reason For Referral No Information Social History Sex Assigned At : Social History Observation Description Sex Assigned At Female Problems Problem Type SNOMED Code ICD Code Onset Dates Problem Status W/U Status Risk Notes Problem Hypothyroidism (90533138) Hypothyroidism, unspecified (E03.9) Active confirmed Problem Syndrome of inappropriate secretion of antidiuretic hormone (37263139) 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 Problem Hypo-osmolality and or hyponatremia (315327960) Hypo-osmolality and hyponatremia (E87.1) Active confirmed Problem Anxiety disorder (047213558) Anxiety disorder, unspecified (F41.9) Active confirmed Problem Pain of ear (finding) (401706162) Otalgia, unspecified ear (H92.09) Active confirmed Problem Essential hypertension (39431338) Essential (primary) hypertension (I10) Active confirmed Problem Age-related osteoporosis (390058538) Age-related osteoporosis without current pathological fracture (M81.0) Active confirmed Problem Chronic kidney disease stage 2 (795511579) Chronic kidney disease, stage 2 (mild) (N18.2) Active confirmed Problem Thyroid function tests abnormal (019530200) Abnormal results of thyroid function studies (R94.6) Active confirmed Problem Gastroesophageal reflux disease with esophagitis (disorder) (213557732) Gastro-esophagea l reflux disease with esophagitis, without bleeding (K21.00) Active confirmed Encounters Encounter Location Date Provider Diagnosis [facility] [address] [facility] [address] [place] [address] 09/21/2024 Eloy Flood Chronic kidney disease, stage 3 unspecified N18.30 ; Chronic kidney disease, stage 2 (mild) N18.2 ; Essential (primary) hypertension I10 ; Anxiety disorder, unspecified F41.9 ; Gastro-esophageal reflux disease with esophagitis, without bleeding K21.00 and Hypothyroidism, unspecified E03.9 [facility] [address] [place] [address] 12/12/2024 Eloy Flood Chronic kidney disease, stage 2 (mild) N18.2 ; Hypokalemia E87.6 ; Other polyuria R35.89 and Essential (primary) hypertension I10 [facility] [address] [place] [address] 01/30/2025 Eloy Flood Chronic kidney disease, stage 3 unspecified N18.30 ; Essential (primary) hypertension I10 ; Anxiety disorder, unspecified F41.9 ; Gastro-esophageal reflux disease with esophagitis, without bleeding K21.00 ; Hypothyroidism, unspecified E03.9 and Abnormal results of thyroid function studies R94.6 [facility] [address] [place] [address] 08/27/2025 Eloy Flood Chronic kidney disease, stage [...] fracture M81.0 and Otalgia, unspecified ear H92.09 [facility] [address] [place] [address] 12/14/2024 Eloy Flood [facility] [address] [place] [address] 09/21/2024 Eloy Flood Assessments Encounter Date Diagnosis [...] , 09/25/2025 04:00:00 PM, [address], [facility], [place], [address],
--- OUTSIDE RECORDS SUMMARY | 2025-09-19 13:35 | XMS_ITS ---
Author Organization [facility] [address] Address [address] [place] [address] Care Team Providers Care Baggage And Mail Agent Name Role Phone Dennis Law MD Unavailable Crystal Gaitan MD PhD Unavaila ble Sherrill Traylor MD Unavailable [phone] Marilu Nation NP Unavailable Manuel Ballard MD [...] CDT): Per patient diagnosed with diverticulitis at [facility] a few months ago and was treated with antibiotics. 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
--- OUTSIDE RECORDS SUMMARY | 2025-09-19 13:35 | XMS_ITS | Clinical Summary ---
Author Organization [facility] Address [address] [place] [address] Phone Care Team Providers Care Change Attendant Name Role Phone Unavailable Primary Care Provider [...] of Treatment Not on file Insurance MEDICARE [facility]
--- OUTSIDE RECORDS SUMMARY | 2025-09-19 13:35 | XMS_ITS | Encounter Summary ---
Author Organization [facility] Address [address] [place] [address] Phone Care Team Providers Care Surgery Aid Name Role Phone Dennis Law MD Unavailable Crystal Gaitan MD PhD Unavaila ble Sherrill Traylor MD Unavailable [phone] Marilu Nation NP Unavailable Manuel Ballard MD Primary Care Provide r Encounter Details Date Type Department Care Team (Late st Contact Info) Description 09/18/2025 Documentation [facility] Medicine Oncology [address] [place] [address] Connie Gomez LCSW Social History Tobacco Use Types Packs/Day Years [...] on file Legal Sex Female 3:23 AM BLUNGER Gender Identity Not on file Sexual Orientation Not on file documented as of this encounter Progress Notes * Connie Gomez LCSW - 09/18/2025 5:28 PM CDT [facility] Shipping Support Clerk Brief Intervention Social Work Follow-Up Note: Transportation Assistance SW contacted pt to find out if she needs ride assistance for appointments 09/20/2025; pt stated shehas someone to bring her to the appointment. SW also checked in with pt's friend, Lisa, as pt has had some memory difficulties in the past; Lisa told SW that pt has shingles and told Lisa that she is miserable. Lisa questioned whether pt should attend mammogram and ROV appointments if she has shingles. Multidisciplinary Collaboration Social Work assisted the patient with care coordination including contacting HELPER [place] FINISHER Cece Cruz to inform her of the report that pt has shingles; SW requested LILY Zhao or an MA contact pt re: whether to attend appointments or reschedule. SW remains available as needed. WENDY Pérez, [facility] Veterinary Attendant [facility] [phone] documented in this encounter Plan of Treatment Not on file documented as of this encounter Visit Diagnoses Not on filedocumented in this encounter Care Teams Surgery Aid Relationship Specialty Start Date End Date Manuel Ballard MD [address] [facility] 15 [place] [address] PCP - General Internal Medicine 01/27/24 Dennis Law MD [address] [facility] MEDICAL ONCOLOGY, [facility] [address] [place] [address] Consulting Physician Medical Oncology 04/22/21 Crystal Gaitan MD PhD [address] [facility] MEDICAL ONCOLOGY, [address] [address] Surgeon Surgical Oncology 05/28/21 Sherrill Traylor MD [address] [place] [address] Radiation Oncologist Radiation Oncology 07/16/21 Marilu Nation NP [address] [place] [address] Nurse Practitioner Gastroenterology 10/26/23 documented as of this encounter
--- OUTSIDE RECORDS SUMMARY | 2025-09-19 13:35 | XMS_ITS | Encounter Summary ---
Author Organization [facility] Address [address] [place] [address] Phone Care Team Providers Care Correspondence Renew Clerk Name Role Phone Dennis Law MD Unavailable Crystal Gaitan MD PhD Unavaila ble Sherrill Traylor MD Unavailable [phone] Marilu Nation NP Unavailable Manuel Ballard MD [...] on file Legal Sex Female 3:23 AM WEIGHT CALLER Gender Identity Not on file Sexual Orientation [...] on filedocumented in this encounter Care Teams Correspondence Renew Clerk Relationship Specialty Start Date End Date Manuel Ballard MD [address] [facility] [address] [place] [address] PCP - General Internal Medicine 01/27/24 Dennis Law MD [address] [facility] MEDICAL ONCOLOGY, [address] [address] Consulting Physician Medical Oncology 04/22/21 Crystal Gaitan MD PhD [address] [facility] MEDICAL ONCOLOGY, [address] [address] Surgeon Surgical Oncology 05/28/21 Sherrill Traylor MD [address] [facility] [place] [address] Radiation Oncologist Radiation Oncology 07/16/21 Marilu Nation NP [address] [place] [address] Nurse Practitioner Gastroenterology 10/26/23 documented as of this encounter
--- OUTSIDE RECORDS SUMMARY | 2025-09-19 13:35 | XMS_ITS | Encounter Summary ---
Author Organization [facility] Address [address] [place] [address] Phone Care Team Providers Care Brick Unloader Tender Name Role Phone Dennis Law MD Unavailable Barak Christina MD Primary Care Provider [phone] Crystal Gaitan MD PhD Unavaila ble Sherrill Traylor MD Unavailable [phone] Tenisha Juan MD Primary Care Provider Susan Bess Primary Care Provider [phone] No, Physician Primary Care Provider [phone] Marilu Nation NP Unavailable Manuel Ballard MD Primary Care Provide r Encounter Details Date Type Department Care Team (Latest Contact Info) Description 10/09/2021 Orders Only [facility] Scanning, Provider [...] on file Legal Sex Female 3:23 AM IDENTIFICATION OFFICER Gender Identity Not on file Sexual [...] COVID: Suspected 12/24/2022 12/24/2022 12/24/2022 7:05 PM IDENTIFICATION OFFICER documented as of this encounter Care Teams Brick Unloader Tender Relationship Specialty [place] [address] [place] [address] MEDICAL ONCOLOGY, [address] [address] PCP - General 05/12/21 02/16/23 Tenisha Juan MD [address] [place] [address] PCP - General Internal Medicine 02/17/23 04/20/23 Susan Bess PA [address] [place] [address] PCP - General Family Medicine 04/21/23 08/02/23 No, Physician PCP - General 08/03/23 01/26/24 Manuel Ballard MD [address] [facility] [address] [place] [address] PCP - General Internal Medicine 01/27/24 Dennis Law MD [address] [facility]Y, [address] [address] Consulting Physician Medical Oncology 04/22/21 Crystal Gaitan MD PhD [address] [facility] MEDICAL ONCOLOGY, [address] [address] Surgeon Surgical Oncology 05/28/21 Sherrill Traylor MD [address] [place] [address] Radiation Oncologist Radiation Oncology 07/16/21 Marilu Nation NP Nurse Practitioner Gastroenterology 10/26/23 documented as of this encounter
--- OUTSIDE RECORDS SUMMARY | 2025-09-19 13:35 | XMS_ITS | Encounter Summary ---
Author Organization [facility] Address [address] [place] [address] Phone Care Team Providers Care Airport Operations Supervisor Name Role Phone Dennis Law MD Unavailable Barak Christina MD Primary Care Provider [phone] Crystal Gaitan MD PhD Unavaila ble Sherrill Traylor MD Unavailable [phone] Tenisha Juan MD Primary Care Provider Susan Bess Primary Care Provider [phone] No, Physician Primary Care Provider [phone] Marilu Nation NP Unavailable Manuel Ballard MD [...] on file Legal Sex Female 3:23 AM VETERINARY ANATOMIST Gender Identity Not on file Sexual Orientation [...] COVID: Suspected 12/24/2022 12/24/2022 12/24/2022 7:05 PM VETERINARY ANATOMIST documented as of this encounter Care Teams Airport Operations Supervisor Relationship Specialty Start Date End Date Barak Christina MD [address] [facility], [address] [address] PCP - General 05/12/21 02/16/23 Tenisha Juan MD [address] [place] [address] PCP - General Internal Medicine 02/17/23 04/20/23 Susan Bess PA [address] [place] [address] PCP - General Family Medicine 04/21/23 08/02/23 No, Physician PCP - General 08/03/23 01/26/24 Manuel Ballard MD [address] [place] [address] PCP - General Internal Medicine 01/27/24 Dennis Law MD [address] [facility], [address] [address] Consulting Physician Medical Oncology 04/22/21 Crystal Gaitan MD PhD [address] [facility], [address] [address] Surgeon Surgical Oncology 05/28/21 Sherrill Traylor MD [address] [place] [address] Radiation Oncologist Radiation Oncology 07/16/21 Marilu Nation NP Nurse Practitioner Gastroenterology 10/26/23 documented as of this encounter
--- OUTSIDE RECORDS SUMMARY | 2025-09-19 13:36 | XMS_ITS | Clinical Summary ---
Author Organization [facility] [address] Address [address] [place] [address] Care Team Providers Care Hat Binder Name Role Phone Dennis Law MD Unavailable [...] 1 tablet (50 mcg total) by mouth public safety dispatcher before breakfast Active clonazePAM (KlonoPIN) 2 mg [...] CDT): Per patient diagnosed with diverticulitis at [facility] a few months ago and was treated with antibiotics. 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, estrogen receptor positive 03/19/2021 Cancer Staging:Pathologic stage from 04/08/2021:Stage IA(pT1a, pN0, cM0, G2, ER+, ND+, HER2-) - Signed by Sherrill Traylor MD [...] nausea, uns pecified vomiting type 08/09/2024 08/11/2024 Encounters Date Type Department Care Team Description 09/18/2025 Documentation [facility] Medicine Oncology [address] [place] [address] Connie Gomez LCSW from Last 3 Months Immunizations Immunization Administration Dates Next Due Influenza, [...] on file Legal Sex Female 3:23 AM SPINDLE SANDER Gender Identity Not on file Sexual Orientation Not on file Obstetrics History Last Filed Vital Signs Vital Sign Reading Time Taken Comments Blood Pressure 150/88 02/01/2025 1:38 PM SPINDLE SANDER notified team... 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 Dennis Law MD [facility] DXA PROCEDURE S Final Result from Last 3 Months or Most Recently Relevant to Health Maintenance Insurance AARP MEDICARE MEDICARE [facility] AARP MEDICARE Advance Directives For more information, please contact: [phone] * Full Code (Latest Code Status on File) Date Activated Date Inactivated Comments 08/09/2024 6:57 PM 08/11/2024 8:20 PM Care Teams Hat Binder Relationship Specialty Start Date End Date Manuel Ballard MD [address] [facility] [address] [place] [address] PCP - General Internal Medicine 01/27/24 Dennis Law MD [address] [facility], [address] [address] Consulting Physician Medical Oncology 04/22/21 Crystal Gaitan MD PhD [address] [facility], [facility] [address] [place] [address] Surgeon Surgical Oncology 05/28/21 Sherrill Traylor MD [address] [facility] [place] [address] Radiation Oncologist Radiation Oncology 07/16/21 Marilu Ntaion NP [address] [place] [address] Nurse Practitioner Gastroenterology 10/26/23
[2025-09-19] MEDS: SODIUM CHLORIDE 0.9% IV 1,000 ML 999 ML IV CONT (13:49)
[2025-09-19 13:53] LABS: Alanine Aminotransferase 25 U/L (6-35); Albumin Level 4.3 g/dL (3.5-5.1); Alkaline Phosphatase 107 U/L (38-126); Anion Gap 7 mmol/L (4-12); Aspartate Amino Transferase 35 U/L (14-36); Bilirubin,Total 0.6 mg/dL (0.2-1.3); Blood Urea Nitrogen 19 mg/dL (7-17); Calcium 9.6 mg/dL (8.4-10.2); Carbon Dioxide 28 mmol/L (22-30); Chloride 101 mmol/L (98-107); Estimated CRCL calculation 39 ml/min; Estimated Glomerular Filt Rate > 60; Glucose 126 mg/dL (65-110); Potassium 4.1 mmol/L (3.4-5.0); Sodium 136 mmol/L (137-145); Total Protein 7.8 g/dL (6.3-8.2)
[2025-09-19 14:01] LABS: Add Urine Microscopic? YES; Appearance Urine Turbid (Clear); Glucose Urine UA Negative (Negative); Leukocyte Esterase Ur 3+ LEU/UL (Negative); Nitrate Urine Negative (Negative); Non Pathogenic Casts 0-2; Specific Grav Ur 1.016 (1.001-1.035)
--- OUTSIDE RECORDS SUMMARY | 2025-09-19 14:04 | XMS_ITS | Clinical Summary ---
Author Organization [facility] Address [address] [place] [address] Phone Care Team Providers Care Sludge Filtration Attendant Name Role Phone Unavailable Primary Care [...] 36.8 C (98.2 F) 01/21/2023 10:30 PM ELECTRICAL DISCHARGE MACHINE OPERATOR Respiratory Rate 10 05/09/2023 2:22 PM CDT Oxygen Saturation 97% 05/09/2023 2:22 PM CDT Inhaled Oxygen Concentration - - Weight 65.8 kg (145 lb) 05/09/2023 2:22 PM CDT Height 162.6 cm (5' 4) 01/21/2023 2:46 PM ELECTRICAL DISCHARGE MACHINE OPERATOR Body Mass Index 24.89 01/21/2023 2:46 PM ELECTRICAL DISCHARGE MACHINE OPERATOR Plan of Treatment Health Maintenance Due Date [...]
--- OUTSIDE RECORDS SUMMARY | 2025-09-19 14:04 | XMS_ITS | Encounter Summary ---
Author Organization [facility] Address [address] [address] Care Team Providers Care Supervisor Underwriting Clerks Name Role Phone Hector Licea DO Primary Care Provider Hector Licea DO Primary Care Provider No, Physician Primary Care Provider [phone] Barak Christina MD Primary Care Provider [phone] No, Physician Primary Care Provider [phone], Physician Primary Care Provider [phone] Dennis Law MD Unavailable Barak Christina MD Primary Care Provider Crystal Gaitan MD PhD Unavaila ble Sherrill Traylor MD Unavailable [phone] Tenisha Juan MD Primary Care Provider Susan Bess Primary Care Provider [phone] No, Physician Primary Care Provider [phone] Marilu Nation NP Unavailable Manuel Ballard MD Primary Care Provide r Encounter Details Date Type Department Care Team (Late st Contact Info) Description 12/20/2016 Orders Only [facility] ProviderHelga MD [facility] [place] [address] Social History Tobacco Use Types Packs/Day Years Used Date Smoking Tobacco: Never Alcohol Use Standard Drinks/Week Comments No 0 (1 standard drink = 0.6 oz pur e alcohol) Comments Unknown Sex and Gender Information Value Date Recorded Sex Assigned at Not on file Legal Sex Female 3:23 AM INTEGRATED LOGISTICS PROGRAMS DIRECTOR Gender Identity Not on file Sexual [...] COVID: Suspected 12/24/2022 12/24/2022 12/24/2022 7:05 PM INTEGRATED LOGISTICS PROGRAMS DIRECTOR documented as of this encounter Care Teams Supervisor Underwriting Clerks Relationship Specialty Start Date End Date Hector Licea DO PCP - General 02/25/17 01/26/21 Hector Licea DO PCP - General 01/14/16 02/24/17 No, Physician PCP - General 01/27/21 03/25/21 Barak Christina MD PCP - General 03/26/21 04/05/21 No, Physician PCP - General 04/06/21 04/07/21 No, Physician PCP - General 04/08/21 05/11/21 Barak Christina MD PCP - General 05/12/21 02/16/23 Tenisha Juan MD [address] [facility] [place] [address] PCP - General Internal Medicine 02/17/23 04/20/23 Susan Bess PA [address] [facility] [place] [address] PCP - General Family Medicine 04/21/23 08/02/23 No, Physician PCP - General 08/03/23 01/26/24 Manuel Ballard MD [address] [facility] 15 [place] [address] PCP - General Internal Medicine 01/27/24 Dennis Law MD [address] [facility], [address] [address] Consulting Physician Medical Oncology 04/22/21 Crystal Gaitan MD PhD [address] [facility] MED[facility], [address] [address] Surgeon Surgical Oncology 05/28/21 Sherrill Traylor MD [address] [place] [address] Radiation Oncologist Radiation Oncology 07/16/21 Marilu Nation NP [address] [facility] [place] [address] Nurse Practitioner Gastroenterology 10/26/23 documented as of this encounter
--- OUTSIDE RECORDS SUMMARY | 2025-09-19 14:04 | XMS_ITS | Clinical Summary ---
Author Organization [facility] Address [address] [address] Care Team Providers Care Telephonic Case Manager Name Role Phone Soni Ballard MD Primary Care Provider [phone] Social History Tobacco Use Types Packs/Day Years [...] Influenza Vaccine (#1) 2025 06/28/2021 Insurance Medicare [facility] Care Teams Telephonic Case Manager Relationship Specialty Start Date End Date Soni Ballard MD [address] [facility], [address] [place] [address] PCP - General Internal Medicine 12/12/23
--- OUTSIDE RECORDS SUMMARY | 2025-09-19 14:04 | XMS_ITS | Clinical Summary ---
Author Organization [facility] Address [address] [place] [address] Care Team Providers Care Early Childhood Teacher Assistant Name Role Phone Non-Staff, Provider Primary Care [...] this topic Medical Devices Implanted Type Area Pairer Device Identifier Shelf Expiration Date Model / Serial / Lot Plate Lyman Cf Capsule Delivery Dev Implanted:Qty: 1 on 09/13/2023 by Sami Cruz DO at [facility] N/A: Esophagus [employer] 10/08/2024 / [id number] / [id number] Insurance MEDICARE [facility] Advance Directives Documents on File Type Date Recorded Patient Packaging Supervisor Expl anation Guardianship - Temporary 09/02/2023 8:04 AM MEENA Blackman cell: [phone] Care Teams Early Childhood Teacher Assistant Relationship Specialty Start Date End Date Non-Staff, Provider PCP - General UNKNOWN PHYSICIAN SPECIALTY 09/13/23
--- OUTSIDE RECORDS SUMMARY | 2025-09-19 14:04 | XMS_ITS | Clinical Summary ---
Author Organization [facility] Address [address] [place] [address] Care Team Providers Care Newspaper Subscription Solicitor Name Role Phone Unavailable Primary Care Provider Unavailabl e Source Comments [facility],non-owned Affiliates and Associated Physician Practices is amultiple site organization consisting of ambulatory clinics and hospital sitesin [place], [place], [place] and [place]. This disclosure is being madepursuant to the Care Everywhere program and may not contain all information available regarding this patient. Last updated 18.[facility] Allergies Active Allergy Reactions Criticality Noted Date [...] patient's age to complete this topic Insurance [facility] MEDICARE MEDICARE
--- OUTSIDE RECORDS SUMMARY | 2025-09-19 14:05 | XMS_ITS | Encounter Summary ---
Author Organization [facility] Address [address] [place] [address] Phone Care Team Providers Care Firer Glost Kiln Name Role Phone Dennis Law MD Unavailable Barak Christina MD Primary Care Provider [phone] Crystal Gaitan MD PhD Unavaila ble Sherrill Traylor MD Unavailable [phone] Tenisha Juan MD Primary Care Provider Susan Bess Primary Care Provider [phone] No, Physician Primary Care Provider [phone] Marilu Nation NP Unavailable Manuel Ballard MD [...] on file Legal Sex Female 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 Gender Identity Not on file Sexual Orientation [...] COVID: Suspected 12/24/2022 12/24/2022 12/24/2022 7:05 PM BOW REHAIRER documented as of this encounter Care Teams Firer Glost Kiln Relationship Specialty Start Date End Date Barak Christina MD [address] [facility], [address] [address] PCP - General 05/12/21 02/16/23 Tenisha Juan MD [address] [place] [address] PCP - General Internal Medicine 02/17/23 04/20/23 Susan Bess PA [address] [place] [address] PCP - General Family Medicine 04/21/23 08/02/23 No, Physician PCP - General 08/03/23 01/26/24 Manuel Ballard MD [address] [place] [address] PCP - General Internal Medicine 01/27/24 Dennis Law MD [address] [facility], [address] [address] Consulting Physician Medical Oncology 04/22/21 Crystal Gaitan MD PhD [address] [facility] MEDICAL ONCOLOGY, [address] [address] Surgeon Surgical Oncology 05/28/21 Sherrill Traylor MD [address] [place] [address] Radiation Oncologist Radiation Oncology 07/16/21 Marilu Nation NP Nurse Practitioner Gastroenterology 10/26/23 documented as of this encounter
--- OUTSIDE RECORDS SUMMARY | 2025-09-19 14:05 | XMS_ITS | Encounter Summary ---
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 Gender Identity Not on file Sexual Orientation [...] COVID: Suspected 12/24/2022 12/24/2022 12/24/2022 7:05 PM AUTOMOTIVE PROJECT ENGINEER documented as of this encounter Care Teams Valve Steamer Relationship Specialty [place] [address] [place] [address] MEDICAL ONCOLOGY, [address] [address] PCP - General 05/12/21 02/16/23 Tenisha Juan MD [address] [place] [address] PCP - General Internal Medicine 02/17/23 04/20/23 Susan Bess PA [address] [place] [address] PCP - General Family Medicine 04/21/23 08/02/23 No, Physician PCP - General 08/03/23 01/26/24 Manuel Ballard MD [address] [facility] [address] [place] [address] PCP - General Internal Medicine 01/27/24 Dennis Law MD [address] [facility], [address] [address] Consulting Physician Medical Oncology 04/22/21 Crystal Gaitan MD PhD [address] [facility] MEDICAL ONCOLOGY, [address] [address] Surgeon Surgical Oncology 05/28/21 Sherrill Traylor MD [address] [place] [address] Radiation Oncologist Radiation Oncology 07/16/21 Marilu Nation NP Nurse Practitioner Gastroenterology 10/26/23 documented as of this encounter
--- OUTSIDE RECORDS SUMMARY | 2025-09-19 14:05 | XMS_ITS | Clinical Summary ---
Author Organization [facility] [address] Address [address] [place] [address] Care Team Providers Care Technical Solution Architect Name Role Phone Dennis Law MD Unavailable [...] 1 tablet (50 mcg total) by mouth machine rough rounder before breakfast Active clonazePAM (KlonoPIN) 2 mg [...] CDT): Per patient diagnosed with diverticulitis at [facility] a few months ago and was treated with antibiotics. 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 Dennis Law MD [facility] DXA PROCEDURE S Final Result from Last 3 Months or Most Recently Relevant to Health Maintenance Insurance AARP MEDICARE MEDICARE [facility] AARP MEDICARE Advance Directives For more information, please contact: [phone] * Full Code (Latest Code Status on File) Date Activated Date Inactivated Comments 08/09/2024 6:57 PM 08/11/2024 8:20 PM Care Teams Technical Solution Architect Relationship Specialty Start Date End Date Manuel Ballard MD [address] [facility] 15 [place] [address] PCP - General Internal Medicine 01/27/24 Dennis Law MD [address] [facility], [address] [address] Consulting Physician Medical Oncology 04/22/21 Crystal Gaitan MD PhD [address] [facility] MEDICAL ONCOLOGY, [facility] [address] [place] [address] Surgeon Surgical Oncology 05/28/21 Sherrill Traylor MD [address] [place] [address] Radiation Oncologist Radiation Oncology 07/16/21 Marilu Nation NP [address] [address] Nurse Practitioner Gastroenterology 10/26/23
--- OUTSIDE RECORDS SUMMARY | 2025-09-19 14:05 | XMS_ITS | Encounter Summary ---
Author Organization [facility] Address [address] [place] [address] Phone Care Team Providers Care Alodize Machine Operator Name Role Phone Dennis Law MD Unavailable Crystal Giatan MD PhD Unavaila ble Sherrill Tryalor MD Unavailable [phone] Marilu Nation NP Unavailable Manuel Ballard MD Primary Care Provide r Encounter Details Date Type Department Care Team (Late st Contact Info) Description 09/18/2025 Documentation [facility] Medicine Oncology [address] [place] [address] Connie Gomez LCSW Social History Tobacco Use [...] on file Legal 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 SW remains available as needed. WENDY Pérez, CRYSTAL Gasoline Power Shovel Operator [facility] [phone] documented in this encounter Plan of Treatment Not on file documented as of this encounter Visit Diagnoses Not on filedocumented in this encounter Care Teams Alodize Machine Operator Relationship Specialty Start Date End Date Manuel Ballard MD [address] [facility] [address] [place] [address] PCP - General Internal Medicine 01/27/24 Dennis Law MD [address] [facility], [facility] [address] [place] [address] Consulting Physician Medical Oncology 04/22/21 Crystal Gaitan MD PhD [address] [facility] MEDICAL ON[facility], [address] [address] Surgeon Surgical Oncology 05/28/21 Sherrill Traylor MD [address] [place] [address] Radiation Oncologist Radiation Oncology 07/16/21 Marilu Nation NP [address] [place] [address] Nurse Practitioner Gastroenterology 10/26/23 documented as of this encounter
--- OUTSIDE RECORDS SUMMARY | 2025-09-19 14:05 | XMS_ITS | Encounter Summary ---
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 Gender Identity Not on file Sexual Orientation [...] on filedocumented in this encounter Care Teams Kiln Head House Operator Relationship Specialty Start Date End Date Manuel Ballard MD [address] [facility] [address] [place] [address] PCP - General Internal Medicine 01/27/24 Dennis Law MD [address] [facility] MEDICAL ONCOLOGY, [address] [address] Consulting Physician Medical Oncology 04/22/21 Crystal Gaitan MD PhD [address] [facility] MEDICAL ONCOLOGY, [address] [address] Surgeon Surgical Oncology 05/28/21 Sherrill Traylor MD [address] [facility] [place] [address] Radiation Oncologist Radiation Oncology 07/16/21 Marilu Nation NP [address] [place] [address] Nurse Practitioner Gastroenterology 10/26/23 documented as of this encounter
--- OUTSIDE RECORDS SUMMARY | 2025-09-19 14:05 | XMS_ITS | Clinical Summary ---
Author Organization [facility] Address [address] [place] [address] Phone Care Team Providers Care Heel Molder Name Role Phone Unavailable Primary Care Provider [...] of Treatment Not on file Insurance MEDICARE [facility]
--- OUTSIDE RECORDS SUMMARY | 2025-09-19 14:05 | XMS_ITS | Encounter Summary ---
Author Organization [facility] Address [address] [place] [address] Phone Care Team Providers Care College Instructor Name Role Phone Dennis Law MD Unavailable Barak Christina MD Primary Care Provider [phone] Crystal Gaitan MD PhD Unavaila ble Sherrill Traylor MD Unavailable [phone] Tenisha Juan MD Primary Care Provider [phone] Susan Bess Primary Care Provider [phone] No, Physician Primary Care Provider [phone] Marilu Nation NP Unavailable Manuel Ballard MD [...] on file Legal 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 Female 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 Gender Identity Not on file Sexual [...] COVID: Suspected 12/24/2022 12/24/2022 12/24/2022 7:05 PM TURN OUT WORKER documented as of this encounter Care Teams College Instructor Relationship Specialty Start Date End Date Barak Christina MD [address] [facility], [address] [address] PCP - General 05/12/21 02/16/23 Tenisha Juan MD [address] [place] [address] PCP - General Internal Medicine 02/17/23 04/20/23 Susan Bess PA [address] [place] [address] PCP - General Family Medicine 04/21/23 08/02/23 No, Physician PCP - General 08/03/23 01/26/24 Manuel Ballard MD [address] [facility] [address] [place] [address] PCP - General Internal Medicine 01/27/24 Dennis Law MD [address] [facility], [address] [address] Consulting Physician Medical Oncology 04/22/21 Crystal Gaitan MD PhD [address] [facility] [facility], [address] [address] Surgeon Surgical Oncology 05/28/21 Sherrill Traylor MD [address] [place] [address] Radiation Oncologist Radiation Oncology 07/16/21 Marilu Nation NP Nurse Practitioner Gastroenterology 10/26/23 documented as of this encounter
--- OUTSIDE RECORDS SUMMARY | 2025-09-19 14:05 | XMS_ITS ---
Author Organization [facility] [address] Address [address] [place] [address] Care Team Providers Care Acquisitions Logistics Analyst Name Role Phone Dennis Law MD [...] CDT): Per patient diagnosed with diverticulitis at [facility] a few months ago and was treated with antibiotics. 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
[2025-09-19 14:27] VITALS: BP 182/69; PULSE 71; RESP 18; O2SAT 100
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
== END 2025-09-19 15:33 | disposition home or self-care (01) ==
PROVIDERS: Emergency Provider Family Medicine; PCP Internal Medicine
DX: G51.0 Bell's palsy (principal); N39.0 Urinary tract infection, site not specified; I10 Essential (primary) hypertension; J44.9 Chronic obstructive pulmonary disease, unspecified; K21.9 Gastro-esophageal reflux disease without esophagitis; G47.33 Obstructive sleep apnea (adult) (pediatric); Z85.3 Personal history of malignant neoplasm of breast; F41.9 Anxiety disorder, unspecified; E03.9 Hypothyroidism, unspecified; I48.91 Unspecified atrial fibrillation
CPT/HCPCS: 36415; 70450; 80053; 81001; 85025; 87086; 96360; 99283; J7030

== ENCOUNTER 2025-10-06 16:52 | Emergency (ER) | payer MEDICARE, SELFPAY ==
--- OUTSIDE RECORDS SUMMARY | 2024-06-29 09:00 | XMS_ITS ---
Author Organization [facility] Address [address] [place] [address] Care Team Providers Care Stenotypist Name Role Phone Remigio Eloy Unavailable [phone] Social History Sex Assigned At : Social History Observation Description Sex Assigned At Female Problems Problem Type SNOMED Code ICD Code Onset Dates Problem Status W/U Status Risk Notes Problem Essential hypertension (36460968) Essential (primary) hypertension (I10) Active confirmed Problem Anxiety disorder (796113341) Anxiety disorder, unspecified (F41.9) Active confirmed Problem Gastroesophageal reflux disease with esophagitis (disorder) (746641498) Gastro-esophage al reflux disease with esophagitis, without bleeding (K21.00) Active confirmed Encounters Encounter Location Date Provider Diagnosis [facility] 2043 [facility] 15 [place] [address] 06/29/2024 Eloy Flood Chronic kidney disease, stage 3 unspecified N18.30 ; Essential (primary) hypertension I10 ; Anxiety disorder, unspecified F41.9 and Gastro-esophageal reflux disease with esophagitis, without bleeding K21.00 Assessments Encounter Date Diagnosis (ICD Code) Assessment Notes Treatment Notes Treatment Clinical Notes Section Notes 06/29/2024 Chronic kidney disease, stage 3 unspecified (ICD-10 - N18.30) 06/29/2024 Essential (primary) hypertension (ICD-10 - I10) 06/29/2024 Anxiety disorder, unspecified (ICD-10 - F41.9) 06/29/2024 Gastro-esophageal reflux disease with esophagitis, without bleeding (ICD-10 - K21.00) Plan Of Treatment Next Appt Details Provider Name:Eloy Flood , 10/18/2025 04:00:00 PM, 2043 [facility], [address], [place], [address], Progress Notes * ZACKERY GROSSOB: 3 (80 yo F)Acc No.[id number]:06/29/2024 Progress Notes Patient: DOLORES AMOR Provider: Ankush GEORGE MD, RosalvaP, F.A.S.N. :1945 A ge:79 Y S ex:Female Date:06/29/2024 Address:[address] [place], [place] [id number] Subjective: * Chief Complaints: * * Medical History: Objective: * Vitals: Assessment: * Assessment: 1. C hronic kidney disease, stage 3 unspecified - N18.30 (Primary) 2 . E ssential (primary) hypertension - I10 3 . A nxiety disorder, unspecified - F41.9? 4. G mariel-esophageal reflux disease with esophagitis, without bleeding - K21.00? Plan: * Treatment: * Billing Information: * Visit Code: 11609 Office Visit, New Pt., Level 5. * Procedure Codes: * Electronic signature of Desmond Flood MD on 10/06/2025 at 05:40 PM CLINICAL NUTRITION MANAGER Sign off status: Pending * Provider: Ankush GEORGE MD, Evangelist.Carolyn.Sheela.P, F.A.S.N. Date: 0 06/29/2024 Generated for Printing/Faxing/eTransmitting on: 12/06/2024 05:40 PM CLINICAL NUTRITION MANAGER
--- OUTSIDE RECORDS SUMMARY | 2024-07-05 10:45 | XMS_ITS ---
Author Organization [facility] Address [address] [place] [address] Care Team Providers Care Bulk Receiver Name Role Phone Eloy Flood Unavailable [phone] Social History Sex Assigned At : Social History Observation Description Sex Assigned At Female Encounters Encounter Location Date Provider Diagnosis [facility] [address] [place] [address] 07/05/2024 Eloy Flood Chronic kidney disea se, stage 3 unspecified N18.30 ; Essential (primary) hypertension I10 ; Anxiety disorder, unspecified F41.9 and Gastro-esophageal reflux disease with esophagitis, without bleeding K21.00 Assessments Encounter Date Diagnosis (ICD Code) Assessment Notes Treatment Notes Treatment Clinical Notes Section Notes 07/05/2024 Chronic kidney disease, stage 3 unspecified (ICD-10 - N18.30) 07/05/2024 Essential (primary) hypertension (ICD-10 - I10) 07/05/2024 Anxiety disorder, unspecified (ICD-10 - F41.9) 07/05/2024 Gastro-esophageal reflux disease with esophagitis, without bleeding (ICD-10 - K21.00) Plan Of Treatment Next Appt Details Provider Name:Eloy Flood , 10/18/2025 04:00:00 PM, 2043 [facility] 15, [place], [address], Progress Notes * ZACKERY GROSSOB: 3 (80 yo F)Acc No.[id number]:07/05/2024 Patient: CAIO AMORLLY Provider: Ankush GEORGE MD, F.A.C.P, F.A.S.N. :1945 A ge:79 Y S ex:Female Date:07/05/2024 Address:[address] [place] [address] Subjective: * Chief Complaints: Objective: Assessment: * Assessment: 1. C hronic kidney disease, stage 3 unspecified - N18.30 (Primary) 2 . E ssential (primary) hypertension - I10 3 . A nxiety disorder, unspecified - F41.9? 4. G mariel-esophageal reflux disease with esophagitis, without bleeding - K21.00? Plan: * Billing Information: * Visit Code: 09150 Office Visit, Est Pt., Level 5. * Procedure Codes: * Electronic signature of Desmond Flood MD on 10/06/2025 at 05:40 PM HEAVY ANTIARMOR WEAPONS INFANTRYMAN Sign off status: Pending * Provider: Ankush GEORGE MD, F.A.C.P, F.A.S.N. Date: 0 07/05/2024 Generated for Printing/Faxing/eTransmitting on: 1 12/06/2024 05:40 PM HEAVY ANTIARMOR WEAPONS INFANTRYMAN
--- OUTSIDE RECORDS SUMMARY | 2024-07-13 07:45 | XMS_ITS ---
Author Organization [facility] Address [address] [place] [address] Care Team Providers Care Core Rescuer Name Role Phone Eloy Flood Unavailable [phone] Social History Sex Assigned At : Social History Observation Description Sex Assigned At Female Problems Problem Type SNOMED Code ICD Code Onset Dates Problem Status W/U Status Risk Notes Problem Hypothyroidism (28777316) Hypothyroidism, unspecified (E03.9) Active confirmed Encounters Encounter Location Date Provider Diagnosis [facility] 2043 [facility] 15 [place] [address] 07/13/2024 Eloy Flood Chronic kidney disease, stage 2 (mild) N18.2 ; Essential (primary) hypertension I10 ; Hypothyroidism, unspecified E03.9 ; Anxiety disorder, unspecified F41.9 and Gastro-esophageal reflux disease with esophagitis, without bleeding K21.00 Assessments Encounter Date Diagnosis (ICD Code) Assessment Notes Treatment Notes Treatment Clinical Notes Section Notes 07/13/2024 Chronic kidney disease, stage 2 (mild) (ICD-10 - N18.2) 07/13/2024 Essential (primary) hypertension (ICD-10 - I10) 07/13/2024 Hypothyroidism, unspecified (ICD-10 - E03.9) 07/13/2024 Anxiety disorder, unspecified (ICD-10 - F41.9) 07/13/2024 Gastro-esophageal reflux disease with esophagitis, without bleeding (ICD-10 - K21.00) Plan Of Treatment Next Appt Details Provider Name:Eloy Flood , 10/18/2025 04:00:00 PM, 2043 [facility], [facility] 15, [place], [address], Progress Notes * RICCO GROSS: 3 (80 yo F)Acc No.[id number]:07/13/2024 Progress Notes Patient: DOLORES AMOR Provider: Ankush GEORGE MD, F.A.C.P, F.A.S.N. :1945 A ge:79 Y S ex:Female Date:07/13/2024 Address:[address] [place] [address] Subjective: * Chief Complaints: * * Medical History: Objective: * Vitals: Assessment: * Assessment: 1. C hronic kidney disease, stage 2 (mild) - N18.2 2 . E ssential (primary) hypertension - I10 3 . H ypothyroidism, unspecified - E03.9 4 .?Anxiety disorder, unspecified - F41.9 5 . G mariel-esophageal reflux disease with esophagitis, without bleeding - K21.00 Plan: * Treatment: * Billing Information: * Visit Code: 69877 Office Visit, Est Pt., Level 4. * Procedure Codes: * Electronic signature of Desmond Flood MD on 10/06/2025 at 05:41 PM PAYROLL ADMINISTRATOR Sign off status: Pending * Provider: Ankush GEORGE MD, F.Carolyn.C.P, F.A.S.N. Date: 0 07/13/2024 Generated for Printing/Faxing/eTransmitting on: 1 12/06/2024 05:41 PM PAYROLL ADMINISTRATOR
--- OUTSIDE RECORDS SUMMARY | 2024-09-21 07:00 | XMS_ITS ---
Author Organization [facility] Address [address] [place] [address] Care Team Providers Care Motor Lodge Clerk Name Role Phone RemigioRadEloy Unavailable [phone] Medications Medication SIG (Take, Route, Frequency, Duration) Notes Start Date End Date Status Ergocalciferol 1.25 MG (76781 UT) 1 capsule Orally Once a week; Duration: 30 days 07/13/2024 11/09/2024 Active Allopurinol 100 MG 1 tablet Orally Once a day; Duration: 90 day(s) 07/13/2024 04/09/2025 Active Social History Sex Assigned At : Social History Observation Description Sex Assigned At Female Encounters Encounter Location Date Provider Diagnosis [facility] [address] [address] 09/21/2024 Eloy Flood Chronic kidney disease, stage 3 unspecified N18.30 ; Chronic kidney disease, stage 2 (mild) N18.2 ; Essential (primary) hypertension I10 ; Anxiety disorder, unspecified F41.9 ; Gastro-esophageal reflux disease with esophagitis, without bleeding K21.00 and Hypothyroidism, unspecified E03.9 Assessments Encounter Date Diagnosis (ICD Code) Assessment Notes Treatment Notes Treatment Clinical Notes Section Notes 09/21/2024 Chronic kidney disease, stage 3 unspecified (ICD-10 - N18.30) 09/21/2024 Chronic kidney disease, stage 2 (mild) (ICD-10 - N18.2) 09/21/2024 Essential (primary) hypertension (ICD-10 - I10) 09/21/2024 Anxiety disorder, unspecified (ICD-10 - F41.9) 09/21/2024 Gastro-esophageal reflux disease with esophagitis, without bleeding (ICD-10 - K21.00) 09/21/2024 Hypothyroidism, unspecified (ICD-10 - E03.9) Plan Of Treatment Next Appt Details Provider Name:Eloy Flood , 10/18/2025 04:00:00 PM, 2043 [facility] [address], [address], Progress Notes * ZACKERY GROSSOB: 3 (80 yo F)Acc No.[id number]:09/21/2024 Progress Notes Patient: DOLORES AMOR Provider: Ankush GEORGE MD, F.Carolyn.C.P, F.A.S.N. :1945 A ge:79 Y S ex:Female Date:09/21/2024 Address:[address] [place] [address] Subjective: * Chief Complaints: * * Medical History: * Medications: T aking Allopurinol 100 MG Tablet 1 tablet Orally Once a day , stop date 04/09/2025, Taking Ergocalciferol 1.25 MG (44102 UT) Capsule 1 capsule Orally Once a week , stop date 11/09/2024 Objective: * Vitals: Assessment: * Assessment: 1. C hronic kidney disease, stage 3 unspecified - N18.30 (Primary) 2 . C hronic kidney disease, stage 2 (mild) - N18.2 3 . E ssential (primary) hypertension - I10 4 . A nxiety disorder, unspecified - F41.9 5 . G mariel-esophageal reflux disease with esophagitis, without bleeding - K21.00 6 . H ypothyroidism, unspecified - E03.9 Plan: * Treatment: * Billing Information: * Visit Code: 94628 Office Visit, Est Pt., Level 4. * Procedure Codes: * Electronic signature of Desmond Flood MD on 10/06/2025 at 05:41 PM CREASING AND CUTTING PRESS FEEDER Sign off status: Pending * Provider: Ankush GEORGE MD, F.Carolyn.C.P, F.A.S.N. Date: Generated for Printing/Faxing/eTransmitting on: 12/06/2024 05:41 PM CREASING AND CUTTING PRESS FEEDER
--- OUTSIDE RECORDS SUMMARY | 2024-11-23 07:15 | XMS_ITS ---
Author Organization [facility] Address [address] [place] [address] [address] [place] [address] Care Team Providers Care Biomed Tech Name Role Phone Remigio Eloy Unavailable [phone] Social History Sex Assigned At : Social History Observation Description Sex Assigned At Female Encounters Encounter Location Date Provider Diagnosis [facility] 2043 [place] [address] 11/23/2024 Eloy Flood Plan Of Treatment Next Appt Details Provider Name:Eloy Flood , 10/18/2025 04:00:00 PM, [address], [facility], Progress Notes * ZACKERY GROSSOB: 3 (80 yo F)Acc No.[id number]:11/23/2024 Progress Notes Patient: DOLORES AMOR Provider: Ankush GEORGE MD, Natalia.P, F.A.S.N. :1945 A ge:79 Y S ex:Female Date:11/23/2024 Address:[address] [place] [address] Subjective: * Chief Complaints: * * Medical History: Objective: * Vitals: Assessment: Plan: * Treatment: * Billing Information: * Visit Code: * Procedure Codes: * Electronic signature of Desmond Flood MD on 10/06/2025 at 05:41 PM QUARRY EXTRACTION WORKER Sign off status: Pending * Provider: Ankush GEORGE MD, CamachoC.P, F.A.S.N. Date: 01/24/2024 Generated for Printing/Faxing/eTransmitting on: 12/06/2024 05:41 PM QUARRY EXTRACTION WORKER
--- OUTSIDE RECORDS SUMMARY | 2024-12-12 10:00 | XMS_ITS ---
Author Organization [facility] Address [address] [place] [address] [place] [address] Care Team Providers Care Halfway House Counselor Name Role Phone Eloy Flood Unavailable [phone] Social History Sex Assigned At : Social History Observation Description Sex Assigned At Female Encounters Encounter Location Date Provider Diagnosis [facility] 2043 [facility] 15 [place] [address] 12/12/2024 Eloy Flood Chronic kidney disease, stage 2 (mild) N18.2 ; Hypokalemia E87.6 ; Other polyuria R35.89 and Essential (primary) hypertension I10 Assessments Encounter Date Diagnosis (ICD Code) Assessment Notes Treatment Notes Treatment Clinical Notes Section Notes 12/12/2024 Chronic kidney disease, stage 2 (mild) (ICD-10 - N18.2) 12/12/2024 Hypokalemia (ICD-10 - E87.6) 12/12/2024 Other polyuria (ICD-10 - R35.89) 12/12/2024 Essential (primary) hypertension (ICD-10 - I10) Plan Of Treatment Next Appt Details Provider Name:Eloy Flood , 10/18/2025 04:00:00 PM, 2043 [facility] 15, [place], [address], Progress Notes * ZACKERY GROSSOB: 3 (80 yo F)Acc No.[id number]:12/12/2024 Patient: DOLORES AMOR Provider: Ankush GEORGE MD, F.A.C.P, F.A.S.N. :1945 A ge:79 Y S ex:Female Date:12/12/2024 Address:[address] [place], [place] [id number] Subjective: * Chief Complaints: Objective: Assessment: * Assessment: 1. C hronic kidney disease, stage 2 (mild) - N18.2 (Primary) 2 . H ypokalemia - E87.6 3 . O ther polyuria - R35.89 4 . E ssential (primary) hypertension - I10 Plan: * Billing Information: * Visit Code: 27127 Office Visit, Est Pt., Level 5. * Procedure Codes: * Electronic signature of Desmond Flood MD on 10/06/2025 at 05:40 PM HOSTESS HOST Sign off status: Pending * Provider: Ankush GEORGE MD, F.A.C.P, F.A.S.N. Date: 0 12/12/2024 Generated for Printing/Faxing/eTransmitting on: 1 12/06/2024 05:40 PM HOSTESS HOST
--- OUTSIDE RECORDS SUMMARY | 2025-01-30 11:00 | XMS_ITS ---
Author Organization [facility] Address [address] [place] [address] Care Team Providers Care Target Man Name Role Phone Remigio lEoy Unavailable [phone] Social History Sex Assigned At : Social History Observation Description Sex Assigned At Female Problems Problem Type SNOMED Code ICD Code Onset Dates Problem Status W/U Status Risk Notes Problem Thyroid function tests abnormal (073565399) Abnormal results of thyroid function studies (R94.6) Active confirmed Encounters Encounter Location Date Provider Diagnosis [facility] 2043 [facility] [place] [address] [place] [address] 01/30/2025 Eloy Flood Chronic kidney disease, stage 3 unspecified N18.30 ; Essential (primary) hypertension I10 ; Anxiety disorder, unspecified F41.9 ; Gastro-esophageal reflux disease with esophagitis, without bleeding K21.00 ; Hypothyroidism, unspecified E03.9 and Abnormal results of thyroid function studies R94.6 Assessments Encounter Date Diagnosis (ICD Code) Assessment Notes Treatment Notes Treatment Clinical Notes Section Notes 01/30/2025 Chronic kidney disease, stage 3 unspecified (ICD-10 - N18.30) 01/30/2025 Essential (primary) hypertension (ICD-10 - I10) 01/30/2025 Anxiety disorder, unspecified (ICD-10 - F41.9) 01/30/2025 Gastro-esophageal reflux disease with esophagitis, without bleeding (ICD-10 - K21.00) 01/30/2025 Hypothyroidism, unspecified (ICD-10 - E03.9) 01/30/2025 Abnormal results of thyroid function studies (ICD-10 - R94.6) Plan Of Treatment Next Appt Details Provider Name:Eloy Flood , 10/18/2025 04:00:00 PM, 2043 [facility], [place] [address], [address], Progress Notes * ZACKERY GROSSOB: 3 (80 yo F)Acc No.[id number]:01/30/2025 Patient: DOLORES AMOR Provider: Ankush GEORGE MD, RosalvaP, F.A.S.N. :1945 A ge:79 Y S ex:Female Date:01/30/2025 Address:[address] [place] [address] Subjective: * Chief Complaints: Objective: Assessment: * Assessment: 1. C hronic kidney disease, stage 3 unspecified - N18.30 (Primary) 2 . E ssential (primary) hypertension - I10 3 . A nxiety disorder, unspecified - F41.9? 4. G mariel-esophageal reflux disease with esophagitis, without bleeding - K21.00 5. H ypothyroidism, unspecified - E03.9 6 . A bnormal results of thyroid function studies - R94.6 Plan: * Billing Information: * Visit Code: 62277 Office Visit, Est Pt., Level 5. * Procedure Codes: * Electronic signature of Desmond Flood MD on 10/06/2025 at 05:39 PM LINEMAN Sign off status: Pending * Provider: Ankush GEORGE MD, Evangelist.Carolyn.Sheela.P, F.A.S.N. Date: 0 01/30/2025 Generated for Printing/Faxing/eTransmitting on: 12/06/2024 05:39 PM LINEMAN
--- OUTSIDE RECORDS SUMMARY | 2025-02-15 13:00 | XMS_ITS ---
Author Organization [facility] Address [address] [place] [address] Care Team Providers Care Scene Painter Name Role Phone Remigio Eloy Unavailable [phone] Social History Sex Assigned At : Social History Observation Description Sex Assigned At Female Encounters Encounter Location Date Provider Diagnosis [place] [facility] 2043 [place] [address] 02/15/2025 Eloy Flood Plan Of Treatment Next Appt Details Provider Name:Eloy Flood , 10/18/2025 04:00:00 PM, [address], [facility], Progress Notes * ZACKERY GROSSOB: 3 (80 yo F)Acc No.[id number]:02/15/2025 Progress Notes Patient: DOLORES AMOR Provider: Ankush GEORGE MD, Natalia.P, F.A.S.N. :1945 A ge:79 Y S ex:Female Date:02/15/2025 Address:[address] [place] [address] Subjective: * Chief Complaints: * * Medical History: Objective: * Vitals: Assessment: Plan: * Treatment: * Billing Information: * Visit Code: * Procedure Codes: * Electronic signature of Desmond Flood MD on 10/06/2025 at 05:40 PM DOOR FURRING INSTALLER Sign off status: Pending * Provider: Ankush GEORGE MD, Cecilia.C.P, F.A.S.N. Date: 02/15/2025 Generated for Printing/Faxing/eTransmitting on: 12/06/2024 05:40 PM DOOR FURRING INSTALLER
--- OUTSIDE RECORDS SUMMARY | 2025-09-25 12:00 | XMS_ITS ---
Author Organization [facility] Address [address] [place] [address] Care Team Providers Care Ware Finisher Name Role Phone Remigio Eloy Unavailable [phone] Social History Sex Assigned At : Social History Observation Description Sex Assigned At Female Encounters Encounter Location Date Provider Diagnosis [facility] [address] [place] [address] 09/25/2025 Eloy Flood Plan Of Treatment Next Appt Details Provider Name:Eloy Flood , 10/18/2025 04:00:00 PM, [address], [facility][note 3], Progress Notes * ZACKERY GROSSOB: 3 (80 yo F)Acc No.[id number]:09/25/2025 Progress Notes Patient: DOLORES AMOR Provider: Ankush GEORGE MD, Evangelist.Carolyn.C.P, F.A.S.N. :1945 A ge:80 Y S ex:Female Date:09/25/2025 Address:[address] [place] [address] Subjective: * Chief Complaints: Objective: Assessment: Plan: * Billing Information: * Visit Code: * Procedure Codes: * Electronic signature of Desmond Flood MD on 10/06/2025 at 05:40 PM CASING CLEANER Sign off status: Pending * Provider: Ankush GEORGE MD, Evangelist.Carolyn.C.P, F.A.S.N. Date: Generated for Printing/Faxing/eTransmitting on: 12/06/2024 05:40 PM CASING CLEANER
--- NOTE | ~2025-10-06 | CT_ITS ---
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 TECHNIQUE: CTA examination is obtained with contrast CTA examination technique is performed with arterial phase of contrast-enhancement. 3-D reconstruction with thin MIP axial and MPR coronal imaging is provided Isovue 300, 92cc injected IV. One or more of the following dose reduction techniques were used: automated exposure control, adjustment of the mA and/or kV according to patient size, use of iterative reconstruction technique. FINDINGS: No significant coronary calcification is present ([id number]) LUNGS: The contrast bolus is adequate, there is no pulmonary embolism identified. No tracheomalacia. No bronchiectasis. Minimal emphysematous changes. Minimal pulmonary fibrotic changes. Apical scarring is noted bilaterally. There are calcified granulomas noted in the right lower lobe. HEART AND PERICARDIUM: Within normal limits. AORTA: Normal caliber aorta.. PULMONARY ARTERIES: No pulmonary embolism ADENOPATHY/MEDIASTINUM: None. LIMITED VIEWS OF THE ABDOMEN: Within normal limits. OSSEOUS STRUCTURES: No sclerotic or lytic lesions. OVERLYING SOFT TISSUES: Unremarkable. THYROID: The thyroid is unremarkable. IMPRESSION: 1. Negative for pulmonary embolism. No acute process Reviewed, dictated and finalized at location P. 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
--- NOTE | ~2025-10-06 | XR_ITS ---
EXAMINATION: XR chest 2V, 10/06/2025 17:45 CLINICAL TECHNICIAN HISTORY: SOB COMPARISON: No comparisons available. Technique: 2 views obtained. Findings: The lungs are clear, no effusion. No pneumothorax. Heart is normal size. Mediastinal and hilar contours are within normal limits. Bony thorax no acute abnormality. Impression: No acute cardiopulmonary abnormality. Reviewed, dictated and finalized at location P. ICAL TECHNICIAN Impression: No acute cardiopulmonary abnormality.
[2025-10-06 16:46] VITALS: BP 154/96; PULSE 96; RESP 11; TEMP 37; O2SAT 96
--- NOTE | 2025-10-06 16:58 | ECG_ITS ---
Test Date: 2025-10-06 17:06:30 Measurements Intervals [place] Rate: 94 P: 64 PA: 170 QRS: -19 QRSD: 84 T: 75 QT: 361 QTc: 453 Interpretive Statements SINUS RHYTHM MODERATE VOLTAGE CRITERIA FOR LVH, CONSIDER NORMAL VARIANT [MEETS CRITERIA IN ONE OF: R(aVL), S(V1), R(V5), R(V5/V6)+S(V1)] POSSIBLE ANTEROSEPTAL MYOCARDIAL INFARCTION , PROBABLY OLD [30 ms Q WAVE IN V1-V4] No previous ECG available for comparison Electronically Signed On 10-07-2025 18:27:19 [employer]TER [employer] by Janie Lainez M.D.
[2025-10-06 17:00] VITALS: O2SAT 96
[2025-10-06 17:08] VITALS: BP 197/100; PULSE 88; RESP 16; O2SAT 97
[2025-10-06 17:14] LABS: Hematocrit 40.3 % (37.0-47.0); Hemoglobin 13.7 g/dL (12.0-15.0); Immature Granulocyte Percent A 0.3 % (0-0.5); Lymphocytes Absolute Auto 0.35 K/mm3 (0.9-3.2); Mean Corpuscular HGB Conc 34.0 g/dl (32-36); Mean Corpuscular Hemoglobin 30.9 pg (26-34); Mean Corpuscular Volume 91.0 fl (80-100); Nucleated Red Blood Cells Absolute Auto 0.000 K/mm3 (0.0-0.012); Nucleated Red Blood Cells Perc 0.0 % (0.0-0.2); Platelet Count Result 268 k/mm3 (150-375); Red Blood Count 4.43 M/mm3 (4.2-5.4); White Blood Count 11.7 K/mm3 (4.5-10.0)
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
--- OUTSIDE RECORDS SUMMARY | 2025-10-06 17:39 | XMS_ITS | Clinical Summary ---
Author Organization [facility] Address [address] [place] [address] Care Team Providers Care Adolescent Counselor Name Role Phone Non-Staff, Provider Primary Care [...] this topic Medical Devices Implanted Type Area Media Law Faculty Member Device Identifier Shelf Expiration Date Model / Serial / Lot Plate Lyman Cf Capsule Delivery Dev Implanted:Qty: 1 on 09/13/2023 by Sami Cruz DO at [facility] N/A: Esophagus [employer] 10/08/2024 / [id number] / [id number] Insurance MEDICARE IRA [facility] Advance Directives Documents on File Type Date Recorded Patient Rd Scientist Expl anation Guardianship - Temporary 09/02/2023 8:04 AM MEENA Blackman cell: [phone] Care Teams Adolescent Counselor Relationship Specialty Start Date End Date Non-Staff, Provider PCP - General UNKNOWN PHYSICIAN SPECIALTY 09/13/23
--- OUTSIDE RECORDS SUMMARY | 2025-10-06 17:41 | XMS_ITS | Encounter Summary ---
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
--- OUTSIDE RECORDS SUMMARY | 2025-10-06 17:41 | XMS_ITS | Encounter Summary ---
Author Organization [facility] Address [address] [place] [address] Phone Care Team Providers Care Web Production Artist Name Role Phone Dennis Law MD Unavailable Barak Christina MD Primary Care Provider [phone] Crystal Gaitan MD PhD Unavaila ble Sherrill Traylor MD Unavailable [phone] Tenisha Juan MD Primary Care Provider [phone] Susan Bess Primary Care Provider No, Physician Primary Care Provider [phone] Marilu Nation NP Unavailable Manuel Ballard MD [...] on file 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 Gender Identity Not on file Sexual Orientation [...] COVID: Suspected 12/24/2022 12/24/2022 12/24/2022 7:05 PM IMPREGNATOR AND DRIER documented as of this encounter Care Teams Web Production Artist Relationship Specialty Start Date End Date Barak Christina MD PCP - General 05/12/21 02/16/23 Tenisha Juan MD [address] [place] [address] PCP - General Internal Medicine 02/17/23 04/20/23 Susan Bess PA [address] [place] [address] PCP - General Family Medicine 04/21/23 08/02/23 No, Physician PCP - General 08/03/23 01/26/24 Manuel Ballard MD [address] [place] [address] PCP - General Internal Medicine 01/27/24 Dennis Law MD Consulting Physician Medical Oncology 04/22/21 Crystal Gaitan MD PhD Surgeon Surgical Oncology 05/28/21 Sherrill Traylor MD [address] [place] [address] Radiation Oncologist Radiation Oncology 07/16/21 Marilu Nation NP Nurse Practitioner Gastroenterology 10/26/23 documented as of this encounter
--- OUTSIDE RECORDS SUMMARY | 2025-10-06 17:41 | XMS_ITS | Encounter Summary ---
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 Gender Identity Not on file Sexual Orientation [...] COVID: Suspected 12/24/2022 12/24/2022 12/24/2022 7:05 PM ARCHITECT MARINE documented as of this encounter Care Teams School Age Program Teacher Relationship Specialty Start Date End Date Barka Christina MD PCP - General 05/12/21 02/16/23 Tenisha Juan MD [address] [place] [address] PCP - General Internal Medicine 02/17/23 04/20/23 Susan Bess PA [address] [place] [address] PCP - General Family Medicine 04/21/23 08/02/23 No, Physician PCP - General 08/03/23 01/26/24 Manuel Ballard MD [address] [address] PCP - General Internal Medicine 01/27/24 Dennis Law MD Consulting Physician Medical Oncology 04/22/21 Crystal Gaitan MD PhD Surgeon Surgical Oncology 05/28/21 Sherrill Traylor MD [address] [place] [address] Radiation Oncologist Radiation Oncology 07/16/21 Marilu Nation NP Nurse Practitioner Gastroenterology 10/26/23 documented as of this encounter
--- OUTSIDE RECORDS SUMMARY | 2025-10-06 17:41 | XMS_ITS | Patient Health Record ---
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 Problem Hypo-osmolality and or hyponatremia (302448275) Hypo-osmolality and hyponatremia (E87.1) Active confirmed Problem Anxiety disorder (275249836) Anxiety disorder, unspecified (F41.9) Active confirmed Problem Pain of ear (finding) (595776600) Otalgia, unspecified ear (H92.09) Active confirmed Problem Essential hypertension (16735354) Essential (primary) hypertension (I10) Active confirmed Problem Age-related osteoporosis (227198591) Age-related osteoporosis without current pathological fracture (M81.0) Active confirmed Problem Chronic kidney disease stage 2 (431275356) Chronic kidney disease, stage 2 (mild) (N18.2) Active confirmed Problem Thyroid function tests abnormal (857468941) Abnormal results of thyroid function studies (R94.6) Active confirmed Problem Gastroesophageal reflux disease with esophagitis (disorder) (622360457) Gastro-esophagea l reflux disease with esophagitis, without bleeding (K21.00) Active confirmed Encounters Encounter Location Date Provider Diagnosis [facility] [address] [facility] [address] [place] [address] 12/12/2024 Eloy Flood Chronic kidney disease, stage 2 (mild) N18.2 ; Hypokalemia E87.6 ; Other polyuria R35.89 and Essential (primary) hypertension I10 [facility] [address] [place] [address] 01/30/2025 Eloy Flood Chronic kidney disease, stage 3 unspecified N18.30 ; Essential (primary) hypertension I10 ; Anxiety disorder, unspecified F41.9 ; Gastro-esophageal reflux disease with esophagitis, without bleeding K21.00 ; Hypothyroidism, unspecified E03.9 and Abnormal results of thyroid function studies R94.6 [facility] [address] [place] [address] 08/27/2025 Eloy Flood Chronic kidney disease, stage [...] fracture M81.0 and Otalgia, unspecified ear H92.09 [facility] [address] [place] [address] 12/14/2024 Eloy Flood Assessments Encounter Date Diagnosis (ICD Code) Assessment Notes Treatment Notes Treatment Clinical Notes Section Notes 12/12/2024 Hypokalemia (ICD-10 - E87.6) 12/12/2024 Chronic [...] K21.00) 01/30/2025 Hypothyroidism, unspecified (ICD-10 - E03.9) 08/27/2025 [...] ear (ICD-10 - H92.09) Plan Of Treatment Pending Test Test Name Order Date ALBUMIN, RANDOM URINE W/CREATININE (6517 ) 08/27/2025 PTH, INTACT AND CALCIUM (8837) COMPREHENSIVE METABOLIC PANEL (90447) URIC ACID (905) 08/27/2025 PROTEIN, TOTAL W/CREAT, RANDOM URINE (17 15) 08/27/2025 CBC (INCLUDES DIFF/PLT) (6399) URINALYSIS, COMPLETE W/REFLEX TO CULTURE (3020) 08/27/2025 URINALYSIS, COMPLETE (5463) 08/27/2025 SED RATE BY MODIFIED WESTERGREN (809) VITAMIN D,25-OH,TOTAL,IA (42283) 025 Next Appt Details Provider Name:Eloy Flood , 10/18/2025 04:00:00 PM, [address] [facility], [facility] [address], [place], [address],
--- OUTSIDE RECORDS SUMMARY | 2025-10-06 17:41 | XMS_ITS | Clinical Summary ---
Author Organization [facility] Address [address] [place] [address] Phone Care Team Providers Care Doughnut Machine Operator Helper Name Role Phone Unavailable Primary Care Provider [...] 36.8 C (98.2 F) 01/21/2023 10:30 PM STENCIL CUTTER MACHINE Respiratory Rate 10 05/09/2023 2:22 PM CDT Oxygen Saturation 97% 05/09/2023 2:22 PM CDT Inhaled Oxygen Concentration - - Weight 65.8 kg (145 lb) 05/09/2023 2:22 PM CDT Height 162.6 cm (5' 4) 01/21/2023 2:46 PM STENCIL CUTTER MACHINE Body Mass Index 24.89 01/21/2023 2:46 PM STENCIL CUTTER MACHINE Plan of Treatment Health Maintenance Due Date [...]
--- OUTSIDE RECORDS SUMMARY | 2025-10-06 17:41 | XMS_ITS | Data Portability ---
[facility] Address [address] [place] [address] Assessment No assessment recorded. Plan of Treatment Reminders Order Date Submit Date Provider Last Modified By Organization Details Last Modified Time Details Appointments None recorded. 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), [address] [place], [address], 0 06:37:48 Referral None recorded. Procedures None recorded. Surgeries None recorded. Imaging None recorded. Medication Orders None recorded. Patient TargetsNo targets recorded. Patient Instructions Encounter Date Encounter Id Patient Instructions Last Modified By Organization Details Last Modified Time 09/03/2020 [id number] Reviewed the following recommendations: -Stay home and [...] CoV 2 RNA (COVI D-19) , QL, rail car operator-P CR, respi rator y speci men sars - cov - 2 PCR NEGATI VE mL Not Available [facility] (Lab) [address] [facility], [place], [address], 09/05/2020 06:37:48 09/03/20 20 09/03/2020 SARS CoV 2 RNA (COVI D-19) , QL, rail car operator-P CR, respi rator y speci men covidcom1 [...] of this test metho d. Not Available [facility] (Lab) [address] [facility], [place], [address], 09/05/2020 06:37:48 09/03/20 20 09/03/2020 SARS CoV 2 RNA (COVI D-19) , QL, rail car operator-P CR, respi rator y speci men covidcom2 Posit maggie resul ts are indic ative of the prese nce of SARS- CoV-2 RNA and do not rule out bacte rial infec tion or co-in fecti on with other virus es. Not Available [facility] (Lab) [address] [facility], [place], [address], 09/05/2020 06:37:48 09/03/2009/03/2020 SARS CoV 2 RNA (COVI D-19) , QL, rail car operator-P CR, respi rator y speci men covidcom3 Test resul ts shoul d be used along with other clini galindo obser vatio ns, patie nt histo ry, epide miolo gical infor matio n and labor atory data in solis g the diagn osis. Not Available [facility] (Lab) [address] [facility], [place], [address], 09/05/2020 06:37:48 09/03/20 20 09/03/2020 SARS CoV 2 RNA (COVI D-19) , QL, rail car operator-P CR, respi rator y speci men covidcom4 This test has recei cliff FDA Emerg ency Use Autho rizat ion and has been verif ied by [facility] . This test is only autho [...] or revok ed soone r. Not Available [facility] (Lab) [address] [place], [address], 09/05/2020 06:37:48 09/03/20 20 09/03/2020 SARS CoV 2 RNA (COVI D-19) , QL, rail car operator-P CR, respi rator y speci men covidcom5 [facility] is certi fied under CLIA- 88 as quali fied to perfo rm high compl exity testi ng. This testi ng was perfo rmed in the [facility] [place] [address] (CLIA Licen se #[id number], CAP #[id number], AU-ID #[id number]). Not Available [facility] (Lab) [address] [place], [address], 09/05/2020 06:37:48 09/03/20 20 09/03/2020 SARS CoV 2 RNA (COVI D-19) , QL, rail car operator-P CR, respi rator y speci men covidcom6 Facts heet for healt hcare provi ders: https ://ww w.fda .gov/ media /1362 56/do wnloa d Facts heet for patie nts: https ://ww w.fda .gov/ media /1362 57/do wnloa d Not Available [facility] (Lab) [address] [place], [address], 09/05/2020 06:37:48 06/18/20 24 06/20/2024 JULY (anti nucle ar antib odies ) titer + patte rn, ifa, serum antinuclear antibodies, ifa Negati ve Negat maggie <1:80 Borde rline 1:80 Posit maggie >1:80 ICAP nomen louisa re: AC-0 For more infor daxa chatterjee about Hep-2 cell patte rns use ANApa ttern s.org , the offic ial websi te for the Inter natio nal Conse nsus on Antin uclea r Antib maria (JULY) Patte rns (ICAP ). Perfo rmed at: [facility] n [address] [place] [address] Lab Direc tor: Sander puga PhD, Phone : [phone] Not Available Not Available 09/03/2025 04:57:05 06/18/20 24 06/19/2024 ccp (cycl ic citru llina didier pepti de) iga+i gg, serum ccp antibodies IgG/IgA text: 0-19 Negat maggie <20 Weak posit maggie 20 - 39 Moder ate posit maggie 40 - 59 Stron g posit maggie >59 Perfo rmed at: [facility] [address] [place] [address] Lab Direc tor: Sander puga PhD, Phone : [phone] Not Available Not Available 09/03/2025 04:57:05 06/18/20 24 06/18/2024 ESR (eryt hocyt e sedim entat ion rate) , blood erythrocyte sedimentatio n rate 28 mm/HR text: 0-20 high Not Available Not Available 09/03/2025 04:57:05 07/22/06/18/2024 C react maggie prote in, QN, serum or plasm a C-reactive protein 0.33 mg/dL text: 0.0-0. 5 Not Available Not Available 09/03/2025 04:57:05 06/18/20 24 06/18/2024 rf (rheu matoi d facto r), serum rf <8.6 text: 0.0-11 .9 Not Available Not Available 09/03/2025 04:57:05 11/16/20 21 11/16/2021 PFT, pleth ysmog ingris No observ ation record ed. [email or web address] [facility] [address] [place], [address], 11/16/2021 17:42:20 Result Notes None recorded. Medical [...] Not Available Not Available No t Available valacyclovi r 1 gram tablet TAKE 1 TABLET BY [...] Not Available Not Available No t Available carbamazepi ne 200 mg tablet TAKE 1/2 TABLET BY MOUTH 3 TIMES DAILY active Not Available Not Available No [...] capsule TAKE 1 CAPSULE BY MOUTH EVERY 12 HOURS X7 DAYS active Not Available Not Available No [...] Not Available Not Available No t Available doxycycline hyclate 100 mg tablet TAKE 1 TABLET BY MOUTH DAILY FOR CHRONIC MASTOIDIT IS RIGHT TAKE 1 TABLET DAILY FOR MASTOID INFECTION active Not Available Not Available No t Available amoxicillin 875 mg-potassiu m clavulanate 125 mg tablet TAKE 1 TABLET BY MOUTH TWICE A DAY 08/31 completed Not Available Not Available Not Available amoxicillin 500 mg-potassiu m clavulanate 125 mg tablet TAKE 1 TABLET BY MOUTH EVERY 12 HOURS FOR 10 DAYS 08/31 completed Not Available Not Available Not Available oxycodone 5 mg tablet TAKE 1 TABLET BY MOUTH EVERY 8 HOURS NEEDED FOR PAIN active Not Available Not Available No t Available Vitals Date Recorded Body height Oxygen [...] /min 18 /min 97.9 [degF] 23.2 kg/m2 95763.2 3 g 184/96 mm[Hg] Vanesa HollidayROHITH [place] - [facility] 12:49:46 Social History Question [...] ICD10 Code Diagnosis IMO Codes Diagnosis Note [id number] LILY Kate [address] [place] [address] 09/03/2020 15:06:05 09/04/2020 08:19:37 Viral screening [id number] Z11.59 Health Concerns Section Related Observation LastModified by Organization Detai ls LastModified Time None Recorded Concern Status LastModified by Organization Details LastModified Time None Recorded Advance Directives Directive None Recorded Payers Insurance Date Sequence Insurance Name Policy Number Policy Morgan Covered Member ID Morgan Member ID Guarantor Name 09/03/2020 2 [employer] (MEDICARE SUPPLEMENT) Meryl Chavis [id number] Meryl Chavis 09/04/2020 [place] [employer] [place] [facility] Kristin Chavis [id number] Meryl Chavis 09/03/2020 1 [place] Kristin Chavis [id number] Meryl Chavis 07/04/2025 1 [place] Kristin Chavis [id number] Meryl Chavis Notes Date Note Type Note [...] symptoms HUBERT VARGAS NP Attn: Accounting,[address], [place], [address], [facility] 09/03/2020 15:29:47 OBGyn Episode No OBEpisode recorded.
--- OUTSIDE RECORDS SUMMARY | 2025-10-06 17:41 | XMS_ITS | Encounter Summary ---
Author Organization [facility] Address [address] [place] [address] Phone Care Team Providers Care Human Resources File Clerk Name Role Phone Dennis Law MD Unavailable Barak Christina MD Primary Care Provider [phone] Crystal Gaitan MD PhD Unavaila ble Sherrill Traylor MD Unavailable [phone] Tenisha Juan MD Primary Care Provider Susan Bess Primary Care Provider [phone] No, Physician Primary Care Provider [phone] Marilu Nation NP Unavailable Manuel Ballard MD [...] on file Legal Sex Female 3:23 AM 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 Gender Identity Not on file Sexual Orientation [...] COVID: Suspected 12/24/2022 12/24/2022 12/24/2022 7:05 PM SPACE 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 documented as of this encounter Care Teams Human Resources File Clerk Relationship Specialty Start Date End Date Barak Christina MD PCP - General 05/12/21 02/16/23 Tenisha Juan MD [address] [place] [address] PCP - General Internal Medicine 02/17/23 04/20/23 Susan Bess PA [address] [place] [address] PCP - General Family Medicine 04/21/23 08/02/23 No, Physician PCP - General 08/03/23 01/26/24 Manuel Ballard MD [address] [address] PCP - General Internal Medicine 01/27/24 Dennis Law MD Consulting Physician Medical Oncology 04/22/21 Crystal Gaitan MD PhD Surgeon Surgical Oncology 05/28/21 Sherrill Traylor MD [address] [place] [address] Radiation Oncologist Radiation Oncology 07/16/21 Marilu Nation NP Nurse Practitioner Gastroenterology 10/26/23 documented as of this encounter
--- OUTSIDE RECORDS SUMMARY | 2025-10-06 17:41 | XMS_ITS | Clinical Summary ---
Author Organization [facility] [employer] Address [address] [place] [address] Care Team Providers Care Poison Information Specialist Name Role Phone Unavailable Primary Care Provider Unavailabl e Source Comments [facility] [employer],non-owned Affiliates and Associated Physician Practices is amultiple site organization consisting of ambulatory clinics and hospital sitesin [place], [place] and [place]. This disclosure is being madepursuant to the Care Everywhere program and may not contain all information available regarding this patient. Last updated 18.[facility] [employer] Allergies Active Allergy Reactions Criticality Noted Date [...] patient's age to complete this topic Insurance [facility] MEDICARE MEDICARE
--- OUTSIDE RECORDS SUMMARY | 2025-10-06 17:41 | XMS_ITS | Encounter Summary ---
Author Organization [facility] Address [address] [address] Care Team Providers Care Metal Annealer Name Role Phone Hector Licea DO Primary Care Provider Hector Licea DO Primary Care Provider No, Physician Primary Care Provider [phone] Barak Christina MD Primary Care Provider No, Physician Primary Care Provider [phone] No, Physician Primary Care Provider [phone] Dennis Law MD Unavailable Barak Christina MD Primary Care Provider Crystal Gaitan MD PhD Unavaila ble Sherrill Traylor MD Unavailable Tenisha Juan MD Primary Care Provider Susan Bess Primary Care Provider [phone] No, Physician Primary Care Provider [phone] Marilu Nation NP Unavailable Manuel Ballard MD Primary Care Provide r Encounter Details Date Type Department Care Team (Late st Contact Info) Description 12/20/2016 Orders Only [facility] [place] [address] Social History Tobacco Use Types Packs/Day Years Used Date Smoking Tobacco: Never Alcohol Use Standard Drinks/Week Comments No 0 (1 standard drink = 0.6 oz pur e alcohol) Comments Unknown Sex and Gender Information Value Date Recorded Sex Assigned at Not on file 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 us Historical Provider [facility] [place] Final Result documented in this encounter Visit Diagnoses Not on filedocumented in this encounter Additional Health Concerns Infection Onset Date Last Indicated Resolved Time COVID: Suspected 12/24/2022 12/24/2022 12/24/2022 7:05 PM AUTOMATION ARCHITECT documented as of this encounter Care Teams Metal Annealer Relationship Specialty Start Date End Date Hector Licea DO PCP - General 02/25/17 01/26/21 Hector Licea DO PCP - General 01/14/16 02/24/17 No, Physician PCP - General 01/27/21 03/25/21 Barak Christina MD PCP - General 03/26/21 04/05/21 No, Physician PCP - General 04/06/21 04/07/21 No, Physician PCP - General 04/08/21 05/11/21 Barak Christina MD PCP - General 05/12/21 02/16/23 Tenisha Juan MD [address] [place] [address] PCP - General Internal Medicine 02/17/23 04/20/23 Susan Bess PA [address] [facility] [place] [address] PCP - General Family Medicine 04/21/23 08/02/23 No, Physician PCP - General 08/03/23 01/26/24 Manuel Ballard MD [address] [address] PCP - General Internal Medicine 01/27/24 Dennis Law MD Consulting Physician Medical Oncology 04/22/21 Crystal Gaitan MD PhD Surgeon Surgical Oncology 05/28/21 Sherrill Traylor MD [address] [place] [address] Radiation Oncologist Radiation Oncology 07/16/21 Marilu Nation NP [address] [place] [address] Nurse Practitioner Gastroenterology 10/26/23 documented as of this encounter
--- OUTSIDE RECORDS SUMMARY | 2025-10-06 17:41 | XMS_ITS | Clinical Summary ---
Author Organization [facility] Address [address] [place] [address] Phone Care Team Providers Care Turbine Operator Name Role Phone Unavailable Primary Care [...] of Treatment Not on file Insurance MEDICARE [facility]
--- OUTSIDE RECORDS SUMMARY | 2025-10-06 17:41 | XMS_ITS | Clinical Summary ---
Author Organization [facility] Address [address] [address] Care Team Providers Care Spa Attendant Name Role Phone Soni Ballard MD Primary Care Provider [phone] Social History Tobacco Use Types Packs/Day Years [...] Influenza Vaccine (#1) 2025 06/28/2021 Insurance Medicare [facility] Care Teams Spa Attendant Relationship Specialty Start Date End Date Soni Ballard MD [address] [facility], [address] [place] [address] PCP - General Internal Medicine 12/12/23
--- OUTSIDE RECORDS SUMMARY | 2025-10-06 17:41 | XMS_ITS ---
Author Organization [facility] [address] Address [address] [place] [address] Care Team Providers Care Knee Bolter Name Role Phone Dennis Law MD Unavailable Crystal Gaitan MD PhD Unavaila ble Sherrill Traylor MD Unavailable [phone] Marilu Nation NP Unavailable Manuel Ballard MD [...] CDT): Per patient diagnosed with diverticulitis at [facility] a few months ago and was treated with antibiotics. 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
--- OUTSIDE RECORDS SUMMARY | 2025-10-06 17:41 | XMS_ITS | Data Portability ---
Author Organization [facility] [employer], Main Office Address [address] [place] [address] Assessment Encounter Date Assessment Date Assessment LastModified [...] Organization Details Last Modified Time Details Appointments Any 15 2025 02:00P M David conteh MD Not available Not available Not available Lab CMP, serum or plasma 2024 025 [facility] (Lab), [address] [place], [address], 06/19/2025 12:49:56 CBC w/ auto diff 2024 025 [facility] (Lab), [address] [place], [address], 06/19/2025 12:49:56 lipid panel, serum 2024 025 [facility] (Lab), [address] [place], [address], 06/19/2025 12:49:56 CBC w/ auto diff 2024 025 [facility] (Lab), [address] [place], [address], 09/19/2025 16:56:57 HbA1c (hemoglob in A1c), blood 2024 025 [facility] (Lab), [address] [place], [address], 06/19/2025 12:49:56 microalbu min, urine 2024 025 [facility] (Lab), [address] [place], [address], 06/19/2025 12:49:56 vitamin D, 25-hydrox y, total, serum 2024 025 [facility] (Lab), [address] [place], [address], 06/19/2025 12:49:56 TSH, serum or plasma 2024 025 [facility] (Lab), [address] [place], [address], 06/19/2025 12:49:56 T4, free, serum 2024 025 [facility] (Lab), [address] [place], [address], 06/19/2025 12:49:56 vitamin B12 + folate, serum or blood 2024 025 [facility] (Lab), [address] [place], [address], 06/19/2025 12:49:56 CBC w/ auto diff [address] ([facility]), [address] [place], [address], 07/09/2025 09:07:59 HbA1c (hemoglob in A1c), blood [address] [place] [address] ([facility]), [address] [place], [address], 07/09/2025 09:07:59 microalbu min, urine [address] ([facility]), [address] [place], [address], 07/09/2025 09:07:59 vitamin D, 25-hydrox y, total, serum [address] [place] [address] ([facility]), [address] [place], [address], 07/09/2025 09:07:58 CMP, serum or plasma [address] [place] [address] ([facility]), [address] [place], [address], 07/09/2025 09:07:58 CBC w/ auto diff [address] ([facility]), [address] [place], [address], 07/09/2025 09:07:58 lipid panel, serum [address] ([facility]), [address] [place], [address], 07/09/2025 09:07:59 TSH, serum or plasma [address] [place] [address] ([facility]), [address] [place], [address], 07/09/2025 09:07:59 T4, free, serum [address] [place] [address] ([facility]), [address] [place], [address], 07/09/2025 09:07:59 vitamin B12 + folate, serum or blood [address] [place] [address] ([facility]), [address] [place], [address], 07/09/2025 09:07:58 CMP, serum or plasma [address] ([facility]), [address] [place], [address], 02/25/2025 17:50:48 CBC w/ auto diff [address] ([facility]), [address] [place], [address], 02/25/2025 17:50:49 lipid panel, serum [address] ([facility]), [address] [place], [address], 02/25/2025 17:50:49 CBC w/ auto diff [address] ([facility]), [address] [place], [address], 02/25/2025 17:50:50 HbA1c (hemoglob in A1c), blood [address] ([facility]), [address] [place], [address], 02/25/2025 17:50:49 microalbu min, urine [address] ([facility]), [address] [place], [address], 02/25/2025 17:50:49 vitamin D, 25-hydrox y, total, serum [address] ([facility]), [address] [place], [address], 02/25/2025 17:50:48 TSH, serum or plasma 2023 024 [facility] ([facility]), [address] [place], [address], 06/19/2024 14:23:33 T4, free, serum [address] ([facility]), [address] [place], [address], 02/25/2025 17:50:49 vitamin B12 + folate, serum or blood [address] ([facility]), [address] [place], [address], 02/25/2025 17:50:48 Referral nephrolog ist referral - Please call patient to schedule an appointme nt. Thank you. 2024 025 [place], [address], [facility] [address], [place], [address], 09/23/2025 12:46:37 cardiolog ist referral - Please call patient to schedule an appointme nt. Thank you. 2024 025 [place], [address], [place], [address], 06/28/2025 17:30:59 pulmonolo gist referral - Please call patient to schedule an appointme nt. Thank you. 2024 025 [email or web address] Sonny Menchaca MD, [address], [place], [address], 09/23/2025 12:46:37 podiatris t referral - Please call patient to schedule an appointme nt. Thank you. 2024 025 Kb Fernández DPM, [address] [facility], [address], [place], [address], 09/19/2025 09:09:12 home health referral - Please call patient to schedule an appointme nt. Thank you. 2024 025 [email or web address] [facility], [address] [place], [address], 09/19/2025 09:09:[address] referral - Please call patient to schedule an appointme nt. Thank you. 2024 025 [email or web address] Jama Slade MD, [address] [facility], [address], [place], [address], 09/23/2025 12:46:38 nephrolog ist referral - Please call patient to schedule an appointme nt. Thank you. 2024 025 [email or web address] [place], [address], [address], [place], [address], 07/09/2025 09:08:21 podiatris t referral - Please call patient to schedule an appointme nt. Thank you. 2024 025 [email or web address] Kb TABORM, [address] [facility], [address], [place], [address], 04/10/2025 16:38:08 pulmonolo gist referral - Please call patient to schedule an appointme nt. Thank you. 2024 025 Sonny Menchaca MD, [address], [place], [address], 05/28/2025 09:53:45 nephrolog ist referral 2023 024 [email or web address] [place], [address], [address], [place], [address], 12/24/2024 09:55:19 cardiolog ist referral 2023 024 [email or web address] [place], [address], [place], [address], 09/25/2024 08:38:52 pulmonolo gist referral 2023 024 [email or web address] Sonny Menchaca MD, [address] [facility], [place], [address], 08/28/2024 10:35:40 podiatris t referral 2023 024 [email or web address] Kb Fernández DPM, [address] [facility], [address], [place], [address], 02/25/2025 17:50:59 gastroent erologist referral 2023 024 [email or web address] Falguni Chi MD, [address], [address], [place], [address], 08/22/2024 08:55:00 Procedures None recorded. Surgeries None recorded. Imaging DEXA, axial skeleton [address] ([facility]), [address] [place], [address], 06/19/2025 09:03:21 US, abdomen - Please call patient to schedule. [address] ([facility]), [address] [place], [address], 02/12/2025 13:19:57 DEXA, axial skeleton [address] ([facility]), [address] [place], [address], 01/10/2025 18:30:41 US, abdomen [address] ([facility] Scheduling), [address] [place], [address], 08/28/2024 09:53:55 DEXA, axial skeleton 2023 024 [facility] ([facility]), [address], [place], [address], 03/09/2024 15:14:10 Medication Orders Synthroid 50 mcg tablet 2024 025 [facility] #[id number], [address], [place], [address], 01/10/2025 16:36:15 Patient TargetsNo targets recorded. Patient Instructions Encounter Date Encounter Id Patient Instructions Last Modified By Organization Details Last Modified Time 03/01/2024 [id number] dementia rating scale-2* Not available 03/01/2024 15:33:21 alcohol misuse* Not availa ble 03/01/2024 15:33:20 depression screening* Not available 03/01/2024 15:33:20 Timed Up and Go test (TUG)* Not available 03/01/2024 15:33:20 multi-dimensiona l health assessment questionnaire* Not available 03/01/2024 15:33:21 diabetic eye exam* [email or web address] Not avail able 02/25/2025 09:10:16 Personalized [facility] Plan and Screening Recommendations Advance Directives - [...] Depression Screening: Negative I have no recommendations [email or web address] Not available 03/01/2024 15:38:26 01/10/2025 [id number] diabetic eye exam* Not avail able 07/09/2025 08:08:14 06/18/2025 [id number] dementia rating scale-2* Not available 09/11/2025 11:28:33 multi-dimensiona l health assessment questionnaire* Not available 09/11/2025 11:28:25 care plan* Not available 11:28:15 advance directiv es: care instructions Not available 06/18/2025 16:06:06 advance care planning: care instructions Not available 06/18/2025 16:06:07 [place] Advance Directives Not available 06/18/2025 16:06:05 diabetic eye exam* [email or web address] Not availab le 06/19/2025 12:47:02 physical therapy evaluation* [email or web address] Not available 06/26/2025 08:12:11 Personalized Hea lth Plan and Screening Recommendations Advance Directives - [...] Not available 06/18/2025 18:14:36 Reason for Referral Office Rental Clerk Referral for M ild chronic obstructive pulmonary disease Referring Physician: David Ballard Internal Medicine, Encounter Date: 03/01/2024 Bi Report Developer Referral for Hy percalcemia Referring Physician: David Ballard Internal Medicine, Encounter Date: 03/01/2024 Iron Piler Referral for Hype rglycemia Referring Physician: David Ballard Internal Medicine, Encounter Date: 03/01/2024 [employer] Cord Referral for Es sential hypertension Referring Physician: Jesusita Culver Medicine, Encounter Date: 03/01/2024 Cinetechnician Referral for Gastroesophageal reflux disease without esophagitis Hepatic Stetosis Referring Physician: Jesusita Culver Medicine, Encounter Date: 03/01/2024 Office Rental Clerk Referral for M ild chronic obstructive pulmonary disease Please call patient to schedule an appointment. Thank you. Referring Physician: Jesusita Culver Medicine, Encounter Date: 01/10/2025 Bi Report Developer Referral for Hy percalcemia Please call patient to schedule an appointment. Thank you. Referring Physician: Jesusita Culver, Encounter Date: 01/10/2025 Iron Piler Referral for Hype rglycemia Please call patient to schedule an appointment. Thank you. Referring Physician: Jesusita Culver, Encounter Date: 01/10/2025 Office Rental Clerk Referral for M ild chronic obstructive pulmonary disease Please call patient to schedule an appointment. Thank you. Referring Physician: David Ballard Internal Medicine, Encounter Date: 06/18/2025 Bi Report Developer Referral for Hy percalcemia Please call patient to schedule an appointment. Thank you. Referring Physician: David Ballard Internal Medicine, Encounter Date: 06/18/2025 Iron Piler Referral for Hype rglycemia Please call patient to schedule an appointment. Thank you. Referring Physician: David Ballard Internal Medicine, Encounter Date: 06/18/2025 [employer] Referral for Es sential hypertension Please call patient to schedule an appointment. Thank you. Referring Physician: David Ballard Internal Medicine, Encounter Date: 06/18/2025 Home Health Referral for Sev ere dementia Please call patient to schedule an appointment. Thank you. Referring Physician: Jesusita Culver Medicine, Encounter Date: 06/18/2025 Neurologist Referral for Sev ere dementia Please call patient to schedule an appointment. Thank you. Referring Physician: Jesusita Culver Medicine, Encounter Date: 06/18/2025 Results Created Date Observation Date Name Description Value Unit Range Abnormal Flag Note LastModifiedBy Organization Detail LastModifiedTime 06/18/20 24 06/18/2024 RHEUM ATOID FACTO R rf <8.6 IU/mL 0.0-11 .9 Not Available [facility] (Lab) [address] [place], [address], 06/18/2024 19:59:35 06/18/20 24 06/18/2024 C REACT JOSE PROTE IN,UL TRA SENS C-reactive protein 0.33 mg/dL 0.0-0. 5 Not Available [facility] (Lab) [address] [place], [address], 06/18/2024 19:59:37 06/18/20 24 06/18/2024 SEDIM ENTAT ION RATE erythrocyte sedimentatio n rate 28 mm/HR 0-20 high Not Available [facility] (Lab) [address] [place], [address], 06/18/2024 18:28:57 06/18/20 24 06/19/2024 ANTI- CCP ANTIB ODIES IGG/I GA ccp antibodies IgG/IgA 8 units 0-19 Negat jose <20 Weak posit jose 20 - 39 Moder ate posit jose 40 - 59 Stron g posit jose >59 Perfo rmed at: [facility] n [address] [facility], [place] [address] Lab Direc tor: Sander puga PhD, Phone : [phone] Not Available [facility] (Lab) [address] [place], [address], 06/19/2024 15:11:25 06/18/20 24 06/20/2024 JULY SCREE N RFX TITER /GIOVANNA IZABELLA antinuclear antibodies, ifa Negati ve Negat jose <1:80 Borde rline 1:80 Posit jose >1:80 ICAP nomen louisa re: AC-0 For more infor daxa n about Hep-2 cell patte rns use ANApa ttern s.org , the offic ial jose migueli te for the Inter natio nal Conse nsus on Antin uclea r Antib maria (JULY) Patte rns (ICAP ). Perfo rmed at: [facility] n [address] [place] [address] Lab Direc tor: Sander puga PhD, Phone : [phone] Not Available [facility] (Lab) [address] [place], [address], 06/20/2024 11:13:48 03/09/20 24 03/09/2024 US, abdom en, limit ed [facility] [address] [facility], [place] [address] Patien t Name: DOLORES MIRANDA Access ion #: [id number] Sex: F : 1944 7 Dictat ed By: Elaine Urbina Attend ing Physic abdiel: ROSASARAH SOLORIO Physic abdiel: BLANCASARAH ALVAREZ Exam Date: 2023 11:10 AM Exam Name: [...] at 2023 12:04: 55 PM Page 1 [email or web address] [facility] (Imaging) [address] [place], [address], 03/26/2024 15:43:10 03/09/20 24 03/09/2024 DEXA, axial skele ton [facility] [address], [place] [address] Patien t Name: LIZZIE DOLORES HERNANDEZ Access ion #: [id number] Sex: F : 1944 7 Dictat ed By: Elaine Urbina Attend ing Physic abdiel: SARAH WELCH ng Physic abdiel: ROSASARAH SOLORIO Exam Date: 2023 11:23 AM Exam Name: XR DEXA-H IPS PELVIS SPINE Admitt ing Diagno sis(es ): 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 T-scor e: compar sanchez by yoselin liriano deviat ion (SD) to a young adult popula tion, matche d for sex and ethnic ity (used for postmdoron lim al women and men >50 years) and classi fied by WHO criter ia. -1.0: normal <-1.0 to >-2.5: osteop enia -2.5: osteop orosis -2.5 plus fragil ity fractu re: severe osteop orosis Page 1 [facility] Y [facility] [address] [phone] Patien t Name: DOLORES MIRANDA Access ion #: [id number] Sex: F : 1944 7 Dictat ed By: Elaine garcia Urbina Attend ing Physic abdiel: SAMIR LUDWIG [facility] Physic abdiel: SARAH WELCH Exam Date: 2023 11:23 AM Exam Name: [...] at 2023 14:12: 55 PM Page 2 [email or web address] [facility] (Imaging) [address] [place], [address], 03/26/2024 15:36:28 05/29/20 24 05/29/2024 NM, hepat obili francisco scan, w/pha rm [facility] [address] [place] [address] Patien t Name: DOLORES MIRANDA [facility] ion #: [id number] Sex: F : 1944 2 Dictat [...] disord er. Electr onical ly Signed by: Maarl nicole at 2023 13:04: 18 PM Page [address] (Imaging) [address] [place], [address], 06/06/2024 08:52:40 05/29/20 24 05/29/2024 US, abdom en, limit ed No observ ation record ed. [address] [place], [address], 05/29/2024 17:03:15 05/29/20 24 05/29/2024 imagi ng/di agnos tic resul t No observ ation record ed. [facility] [address] [place], [address], 05/29/2024 16:15:08 06/27/20 24 06/24/2024 CT, abdom en + pelvi s, w/ contr ast No observ ation record ed. [facility] Not Available 2023 12:46:33 11/23/20 24 11/23/2024 imagi ng/di agnos tic resul t No observ ation record ed. [facility] [address], [place], [address], 11/23/2024 18:08:11 11/26/20 24 11/23/2024 imagi ng/di agnos tic resul t No observ ation record ed. [facility] [address], [place], [address], 11/26/2024 15:44:36 03/15/20 25 03/15/2025 US, abdom en, limit ed [facility] [address] [place] [address] Patien t Name: DOLORES MIRANDA Access ion #: [id number] Sex: F : 1944 6 Dictat [...] at 2024 13:08: 54 PM Page 1 [email or web address] [facility] (Imaging) [address] [place], [address], 03/28/2025 10:27:18 03/15/20 25 03/15/2025 US, abdom en No observ ation record ed. [facility] [address] [place], [address], 03/15/2025 14:13:11 09/19/20 25 09/19/2025 imagi ng/di agnos tic resul t No observ ation record ed. [facility] [address] [facility] [address], [place], [address], 09/19/2025 14:52:14 Result Notes Documentation Provider Name and Address Organization Details Recorded Time Dexa, Axial Skeleton : [facility] [address] [place] [address] Patient Name: DOLORES GROSS Sex: F : [...] plus fragility fracture: severe osteoporosis Page [address] [address] Patient Name: DOLORES GROSS Sex: F : [...] should be sought Page 2 ISABEL Suazo, [place] - [facility] [employer] [facility] 03/26/2024 15:36:28 Nm, Hepatobiliary Scan, W/pharm : [address] [address] Patient Name: DOLORES GROSS Sex: F : [...] functional gallbladder disorder. Page 1 ISABEL Castillo, [place] - [facility] [employer] [facility] 06/06/2024 08:52:40 Problems Name Problem SNOMED Code Status Onset Date Resolution Date Notes Provider Name and Address Organization Details Recorded Time Bilateral plantar fasciitis 64853230578 821371 Active 2018 Not Available [facility] 3 14:37:31 Asthma 042821985 Active 2018 Not Available [facility] 3 14:37:31 Wears glasses 842605450 Active 2018 Not Available [facility] 3 14:37:31 Pain in left foot 58115573860 9107 Active 2018 Not Available [facility] 3 14:37:31 Hypertens jose disorder 20977468 Completed 201809/22/2021 Not Available [facility] 3 02:33:11 Seasonal allergy 508611354 Active 2018 Not Available [facility] 3 14:37:31 Pseudomon as isolated in sputum by culture 13371711007 861080 Active 2020 Not Available [facility] 3 14:37:31 Hypertens jose emergency 85998233819 9104 Active 2020 Not Available [facility] 3 14:37:31 Chest pain 80851663 Active 2020 Not Available [facility] 3 14:37:31 Mild chronic obstructi ve pulmonary disease 997565140 Active 2021 Not Available [facility] 3 14:37:31 Chronic obstructi ve pulmonary disease 36097215 Active 2022 Not Available [facility] 3 14:37:31 Hypothyro idism 33991268 Active 2022 Not Available [facility] 3 14:37:31 Vitamin B12 deficienc y (non anemic) 96600026 Active 2022 Not Available [facility] 3 14:37:31 Protein electroph oresis outside reference range 446803539 Active 2022 Not Available [facility] 3 14:37:31 Essential hypertens ion 33129616 Active 2022 Not Available [facility] 3 14:37:31 Moderate recurrent major depressio n 79233227 Active 2023 David garcia MD [address], [address], [place], [address] , [employer] [facility] 4 11:25:23 Vitamin D deficienc y 27294501 Active 2023 David garcia MD [address], [address], [place], [address] , [employer] [facility] [employer] 4 11:26:31 Serum vitamin B12 below reference range 576696881 Active 2023 David garcia MD [address], [address], [place], [address] , [employer] [facility] 4 11:26:44 Diverticu litis 193394558 Active 2023 David garcia MD [address], [address], [place], [address] , [employer] [facility] 4 11:28:47 Steatotic liver disease 003744403 Active 2023 David garcia MD [address], [address], [place], [address] , [facility] 4 11:29:18 Gastroeso phageal reflux disease without esophagit is 930043618 Active 2023 David garcia MD [address], [address], [place], [address] , [facility] 4 11:34:25 Generaliz ed anxiety disorder 23863275 Active 2023 David garcia MD [address], [address], [place], [address] , [facility] 4 14:57:24 Hyperlipi demia 20235374 Active 2023 Herlinda Trejo RN null, [place] [facility] 4 13:58:37 Hypercalc emia 61898972 Active 2023 Herlinda Trejo RN null, [place] [facility] 4 14:07:59 Metabolic dysfuncti on-associ ated steatohep atitis 070065434 Active 2023 David garcia MD [address], [address], [place], [address] , [facility] 4 14:07:52 Hyperglyc emia 32134135 Active 2023 David garcia MD [address], [address], [place], [address] , [facility], [facility] 4 14:10:51 Upper respirato ry infection 64412747 Active 2023 Bea Hart MA null, [facility] 4 15:26:42 Leukocyto sis 000400319 Active 2023 David garcia MD [address], [address], [place], [address] , [facility] 4 14:23:31 Nausea and vomiting 96758877 Active 2023 Bea Hart MA null, [facility] 4 15:09:38 Sore throat 637627590 Active 2023 WAQAS Hernandez null, [facility] 4 16:16:57 Fever 421040639 Active 2023 WAQAS Hernandez null, [facility] 4 16:19:12 Abdominal pain 37051930 Active 2023 Diego duarte MD [address] [place] [address], [address] , [facility], [facility] 4 14:55:06 Generaliz ed aches and pains 67551661 Active 2023 ISABEL Suazo, [facility] 4 14:38:29 Pain of ear 885583031 Active 2023 Bea Hart MA null, [facility] 4 15:10:38 Erythrocy te sedimenta tion rate above reference range 189747360 Active 2023 ISABEL Suazo, [facility] 4 16:08:10 Chronic kidney disease 259415557 Active 2023 Bea Hart MA null, [facility] 4 14:16:51 Candidias is of mouth 53615253 Active 2023 ISABEL Suazo, [facility] 4 15:30:45 Bilateral earache 853616887 Active 2024 WAQAS Robert null, [place] [facility] 5 10:38:32 Cough 51175271 Active 2024 Ailyn Chávez MA null, [facility] 5 10:59:56 Bilateral earache 815999193 Active 2024 David garcia MD [address] [facility], [address], [place], [address] , [facility], [place] [employer] [facility] 5 18:27:22 Severe dementia 83050017675 4105 Active 2024 David garcia MD [address], [address], [place], [address] , [facility] [place] [employer] [facility] 5 16:07:15 Infection of ear [id number] Active 2024 WAQAS Robert, [facility] 5 11:33:23 Herpes zoster 9478021 Active 2024 WAQAS Robert, [facility] 5 17:34:16 Notes:Medical History: Kalona didier chromogranin A Bilateral tinnitus Rhinitis with [...] Wellness CPT Code, subsequent completed Lizzette Atkins [facility] 06/18/2025 15:14:02 4 Medicare Wellness CPT Code, subsequent completed Glory Cloud RN [facility] [employer] [facility] 03/01/2024 15:00:20 biopsy of breast completed Not Available [facility] 01/26/2023 02:30:05 lumpectomy of left breast completed WAQAS Robert [facility] 12/01/2023 14:47:52 Imaging Results None recorded. Procedure Notes None recorded. Medical Equipment None Reported. Allergies Allergen ID Allergen Name Allergen Category Reaction Reaction Severity Criticality Documentation Date Start Date Code Code System Note Provider Name and Address Organization Details Recorded Time 3311 hydralazi ne medicatio n Not available Not available Not available 01/26/2023 5470 RxNorm Not Available [facility] 3 02:37:37 3312 diltiazem Not available Not available Not available Not available 01/26/2023 3443 RxNorm Not Available [facility] 3 02:37:37 3313 ciproflox acin medicatio n Not available Not available Not available 01/26/2023 2551 RxNorm Andie Jesse, RMA null, [facility] 3 15:09:18 3314 Cipro medicatio n Not available Not available Not available 01/26/2023 40686 3 RxNorm Andie Jesse, RMA null, [facility] 3 15:09:13 3315 carvedilo l medicatio n Not available Not available Not available 01/26/2023 90327 RxNorm Not Available [facility] 3 02:37:38 3316 amlodipin e medicatio n Not available Not available Not available 01/26/2023 54760 RxNorm Not Available [facility] 3 02:37:38 Medications Name Sig Start Date [...] t Available valacyclov ir 1 gram tablet Take 1 tablet twice a day by oral route for 5 days. 2024 active Not Available Not Available Not Avai lable hydrocodon e 5 mg-acetami nophen 325 mg [...] completed Not Available Not Available Not Available carbamazep ine 200 mg tablet TAKE 1/2 TABLET BY MOUTH 3 TIMES DAILY active Not Available Not Available No t Available clonidine HCl 0.2 mg tablet TAKE [...] Not Available Not Available No t Available pantoprazo le 40 mg tablet,del ayed [...] Available Not Available No t Available lisinopril 40 mg tablet TAKE ONE [...] Not Available Not Available No t Available neomycin-p olymyxin-h ydrocort 3.5 mg-10,000 unit/mL-1 [...] Syringe Ultra-Fine 1 mL 31 gauge x 04/12 USE TO INJECT B12 ONCE WEEKLY 02/04 [...] Updated DateTime 5 162.56 cm 23.1 kg/m2 25911.1 7 g 98.1 [degF] 98 /min 66 % 66 % 0 142/80 mm[Hg] Ama Ye MA [facility] [employer] [facility] 5 16:01:03 Date Recorded Body height Body mass index (BMI) Body weight Body temperature Heart rate Systolic And Diastolic Provider Name and Address Organization Details Last Updated DateTime 4 162.56 cm 24.9 kg/m2 49763.8 9 g 97.9 [degF] 84 /min 130/74 mm[Hg] WAQAS Robert [facility] 4 14:33:21 Date Recorded Body height Body mass index (BMI) Body weight Heart rate Body temperature Respiratory rate Oxygen saturation Oxygen saturation in Arterial blood by Pulse oximetry Systolic And Diastolic Provider Name and Address Organization Details Last Updated DateTime 4 162.56 cm 24.9 kg/m2 40997.8 9 g 74 /min 97.9 [degF] 14 /min 97 % 97 % 140/80 mm[Hg] Mary Grace Blevins [facility] [employer] 4 11:14:40 Date Recorded Body height Body mass index (BMI) Body weight Body temperature Heart rate Respiratory rate Oxygen saturation Oxygen saturation in Arterial blood by Pulse oximetry Systolic And Diastolic Provider Name and Address Organization Details Last Updated DateTime 4 162.56 cm 24.9 kg/m2 99777.8 9 g 98.6 [degF] 72 /min 14 /min 98 % 98 % 140/82 mm[Hg] Coco Blanco MA [facility] [employer] 4 12:38:00 Date Recorded Body height Body temperature Body mass index (BMI) Body weight Respiratory rate Oxygen saturation Oxygen saturation in Arterial blood by Pulse oximetry Heart rate Systolic And Diastolic Provider Name and Address Organization Details Last Updated DateTime 5 162.56 cm 98.2 [degF] 23.2 kg/m2 44119.9 7 g 16 /min 98 % 98 % 70 /min 150/82 mm[Hg] Lizzette Atkins [place] [facility] 15:37:49 Social History Question Answer Notes LastModified by Organizat ion Details LastModified Time Tobacco Smoking Status Never Smoker Not Available [employer] 01/26/2023 02:24:19 Do You Have An Advance Directive? No Information not available 12/01/2023 Are You Blind Or Do You Have Difficulty Seeing? No [email or web address] Information not available 03/01/2024 Is Blood Transfusion Acceptable In An Emergency? No Information not available 06/18/2025 What Is Your Level Of Caffeine Consumption? Moderate [id number] Information not available 01/26/2023 How Much Tobacco Do You Chew? None MIGRATION.24647 [id number] Information not available 01/26/2023 In The 14 Days Before Symptom Onset, Have You Had Close Contact With A Laboratory-confi rmed COVID-19 While That Case Was Ill? No MIGRATION.[id number] Information not available 01/26/2023 In The 14 Days Before Symptom Onset, Have You Had Close Contact With A Person Who Is Under Investigation For COVID-19 While That Person Was Ill? No MIGRATION.13821 22481 Information not available 01/26/2023 Are You Deaf Or Do You Have Serious Difficulty Hearing? Yes Tinnitus Information not available 12/01/2023 What Type Of Diet Are You Following? REGULAR MIGRATION.79239 [id number] Information not available 01/26/2023 Which Illicit Or Recreational Drugs Have You Used? None MIGRATION.63132 06856 Information not available 01/26/2023 What Is The Highest Grade Or Level Of School You Have Completed Or The Highest Degree You Have Received? [id number] Information not available 12/01/2023 How Many Days Of Moderate To Strenuous Exercise, Like A Brisk Walk, Did You Do In The Last 7 Days? 0 Information not available 06/18/2025 What Is The Fluoride Status Of Your Home? Unknown Information not available 12/01/2023 Are There Any Guns Present In Your Home? No Information not available 12/01/2023 Where [facility] You Live? [facility] Information not available 12/01/2023 Advance Directive- Providers Has Reviewed Directive And Consents To Follow Them (insert Provider Name With Any Objectives In Notes Field) No Information not available 06/18/2025 Presence Of Domestic Violence No Information not available 06/18/2025 Guns Present In The Home? No Information not available 06/18/2025 Are You Able To Care For Yourself? Yes [email or web address] Information not available 03/01/2024 Are You Blind Or Do Yo Have Difficulty Seeing? No [email or web address] Information not available 03/01/2024 Are You Deaf Or Do You Have Serious Difficulty Hearing? No [email or web address] Information not available 03/01/2024 General Stress Level? Low Information not available 06/18/2025 Live Alone Of With Others? Alone [email or web address] Information not available 03/01/2024 Do You Have A Medical Power Of Monotype Operator? Yes Information not available 12/01/2023 What Was [...] How Much Tobacco Do You Smoke? No MIGRATION.55547 07976 Information not available 01/26/2023 What Types Of Sporting Activities Do You Participate In? 0 Information not available 06/18/2025 Has Tobacco Cessation Counseling Been Provided? No N/a Information not available 12/01/2023 Have You Recently Traveled Abroad? No MIGRATION.96934 06263 Information not available 01/26/2023 Do You Have Difficulty Walking Or Climbing Stairs? No Information not available 12/01/2023 Do You Have Any Dietary Restrictions? No MIGRATION.38568 66683 Information not available 01/26/2023 Sex: Female Functional Status Question Answer Note LastModified by Organizat ion Details LastModified Time Do you use any illicit or recreational drugs? No Information not available 12/01/2023 Do you or have you ever used any other forms of tobacco or nicotine? No Information not available 12/01/2023 What is your level of alcohol consumption? None MIGRATION.46845 97677 Information not available 01/26/2023 Do you or have you ever used smokeless tobacco? Never used smokeless tobacco MIGRATION.07689 16061 Information not available 01/26/2023 Are you currently employed? No Information not available 12/01/2023 Do you have transportation difficulties? No [email or web address] Information not available 03/01/2024 Are you able [...] e-cigarettes or vape? Never used electronic cigarettes MIGRATION.63637 02299 Information not available 01/26/2023 What is your exercise level? None [email or web address] Information not available 03/01/2024 Mental Status Question Answer Note LastModified by Organizat ion Details LastModified Time Do you feel stressed (tense, restless, nervous, or anxious, or unable to sleep at night)? [id number] Information not available 12/01/2023 Do you have [...] DISEASE/DISORDER N HISTORY OF DRUG ABUSE N RADIATION / CHEMOTHERAPY N COPD Y Other # 2 N BLOOD DISEASES N [...] have Advance directive? N ADDICTION CONCERNS N Impotence N ENDOMETRIOSIS N USE OF BLOOD THINNERS N SKIN PROBLEMS N GASTROINTESTINAL DISORDER N PERIPHERAL VASCULAR DISEASE N MUSCLE,JOINT OR BONE PROBLEMS N GASTROINTESTINAL BLEEDING N BLOOD CLOTS N ASTHMA Y CATARACTS N Abdominal Pain Y ERECTILE DYSFUNCTION N ARTERIAL INSUFFICIENCY N VARICOSITIES N GI PROBLEMS Y Low Testosterone N INFERTILITY N AIDS/HIV N CHEMOTHERAPY / RADIATION Y LIVER DISEASE N MALE HYPOGONADISM N HYPERTENSION Y Deficiency Y TOURETTE'S N ANXIETY DISORDER N BLOOD TRANSFUSION N ANEMIA/BLOOD DISORDER N CHRONIC EAR INFECTIONS N TUBERCULOSIS N GLAUCOMA N FOOT PROBLEM N DIVERTICULITIS N SLEEP APNEA N CHICKENPOX N ALLERGIES/HAYFEVER N BACK INJECTIONS N INFECTIOUS DISEASE N PROSTATE N HEART ARRHYTHMIA N ESRD N INSOMNIA N HIGH CHOLESTEROL / HYPERLIPIDEMIA N EYE PROBLEMS N HYPERTHYROIDISM N PVD N EDEMA N CHRONIC PAIN [...] N ALZHEIMER'S DISEASE N Brain Problems N DEMENTIA N HERPES N SEIZURES/EPILEPSY N HEADACHES/MIGRAINES N VASCULAR DISEASE N PACEMAKER N DIZZINESS N HEART DISEASE/HEART PROBLEMS Y KIDNEY DISEASE N MULTIPLE SCLEROSIS N NEUROPSYCHOLOGICAL N CANCER: SPECIFY Y CARDIAC ARRHYTHMIA N ATRIAL FIBRILLATION N Gall Stones N PULMONARY EMBOLISM N AUTOIMMUNE DISEASE N Gynecological HistoryNo gynecological history recorded. Obstetrics History GPAL:G 0 P 0 0 0 0 Immunizations Vaccine Type Date Status Note Provider Nam e and Address Organization Details Recorded Time Influenza, high-dose, quadrivalent, PF 12/01/2023 completed David Ballard MD [address] [facility] [facility] [address], [place], [address], [facility] [place] [employer] [facility] 12/01/2023 17:43:38 Past Encounters Encounter ID Performer Location Encounter Start Date Encounter Closed Date Diagnosis/Indication Diagnosis SNOMED-CT Code Diagnosis ICD10 Code Diagnosis IMO Codes Diagnosis Note [id number] Dee Kirkland MD [facility] [address] [place] [address] 02/02/2021 00:00:00 02/02/2021 15:43:37 [id number] MD ARY Coffey IGRATION_ DEFAULT_1 _1 , 02/19/2021 00:00:00 02/19/2021 17:35:[id number] [facility] ic_[facility] [address] [place] [address] 03/04/2021 00:00:00 03/04/2021 18:47:33 [id number] MD ARY Coffey IGRATION_ DEFAULT_1 _1 , 06/04/2021 00:00:00 06/04/2021 18:45:25 [id number] MD ARY Coffey IGRATION_ DEFAULT_1 _1 , 09/17/2021 00:00:00 09/17/2021 18:28:25 [id number] Kolby Decker MD [facility] [address] [place] [address] 09/29/2021 00:00:00 09/29/2021 14:56:13 [id number] Kolby Decker MD [facility] [address] [place] [address] [address] [place] [address] 10/13/2021 00:00:00 10/13/2021 15:23:[id number] [facility] [address] [address] 11/16/2021 00:00:00 11/17/2021 10:48:14 [id number] Dee Kirkland MD _[facility] IGRATION_ DEFAULT_1 _1 , 12/24/2021 00:00:00 12/24/2021 15:55:21 [id number] Kolby Decker MD [facility] [address] [address] 02/15/2022 00:00:00 02/15/2022 14:30:[id number] [facility] [address] [place] [address] 10/25/2022 00:00:00 10/25/2022 15:56:37 [id number] [facility] [address] [place] [address] 06/09/2023 14:14:32 06/09/2023 15:49:08 Hypothyroidism 45035654 E03.9 TSH and FT4 in range- continue [...] minerals and reduce inflammati on. Essential hypertension 43897496 I10 Continue on lisinopril , hctz, and [...] informatio n in the electronic health record, mihaelaen phillipy interpreti ng results and communicat ing results to the patient. Patient can be followed by PCP - she is aware of my resignatio n and last day of September 09. If needed her PCP can refer patient to another endocrinol ogist in the area. All questions /concerns answered and refills necessary at visit today. [id number] David garcia MD [facility] Internal [facility] [address] [facility] [place] [address] 12/01/2023 14:28:07 12/01/2023 15:28:24 Screening - NAD 856633905 Z13.9 C-scope: Not doing this at this [...] labs, ER if worse Screening for osteoporosis 491095496 Z13.820 Mild chron ic obstructive pulmonary disease 830879118 J44.9 Dr Decker 02/15/2023 , now sees Dr Menchaca [facility] Used to be nebs, breo, ventolin, incruse Essential hypertension 40284297 I10 On lisinopril On HCTZOn metoprolol Dr Kirkland 06/09/[address] Gray will see him 12/02/2022 Hypothyroidism 46459756 E03.9 On levothyrox ine 50mcg dailyOn liothyroni ne 5mg bid Dr Kirkland 06/09/2023 Serum brigid min B12 below reference range 516834768 R79.[address] Abd 10/27/2023 : Diverticul itis, hepatic steatosis Steatotic liver disease 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 K76.0 CT Abd 10/27/2023 : Diverticul itis, hepatic steatosis Get labs and US liver Gastroesop hageal reflux disease without esophagitis 702300979 K21.9 On omeprazole 20mg daily, take PRN, get EGD if not done Generalize d anxiety disorder 14277657 F41.1 On clonazepam 2mg tid, advised not to take this so often and only as PRN!Sees Dr Coronado her psychiatri st Administra tion of influenza vaccine 72136605 Z23 Metabolic dysfunction-associate d steatohepatitis 259441854 K75.81 [id number] David garcia MD [facility] Internal Med [facility] [address] [facility] [place] [address] 12/15/2023 14:04:09 12/15/2023 15:25:46 Screening - NAD 282262597 Z13.9 C-scope: Not doing this at this [...] labs, ER if worse Screening for osteoporosis 968467748 Z13.820 Mild chron ic obstructive pulmonary disease 423924450 J44.9 Dr Decker 02/15/2023 , now sees Dr Menchaca [facility] Used to be nebs, breo, ventolin, incruse Essential hypertension 41237799 I10 On lisinopril On HCTZOn metoprolol Dr Kirkland 06/09/[address] Gray will see him 12/02/2022 Hypothyroidism 12576191 E03.9 On levothyrox ine 50mcg dailyOn liothyroni ne 5mg bid Dr Kirkland 06/09/2023 Serum brigid min B12 below reference range 931180759 R79.[address] Abd 10/27/2023 : Diverticul itis, hepatic steatosis Steatotic liver disease 692164856 K76.0 CT Abd 10/27/2023 : Diverticul itis, hepatic steatosis Get labs and US liver Gastroesop hageal reflux disease without esophagitis 658564404 K21.9 On omeprazole 20mg daily, take PRN, get EGD if not done Generalize d anxiety disorder 23975398 F41.1 On clonazepam 2mg tid, advised not to take this so often and only as PRN!Sees Dr Coronado her psychiatri st Hypercalcemia 26957052 E 83.52 Get a referral to nephrology Hyperlipidemia 30167483 E78.5 On atorvastat in 40mg dailyGet labs Hyperglycemia 69629221 R 73.9 Get labs and see podiatry and eye [id number] David garcia MD [facility] Internal [facility] [address] [facility] [place] [address] 03/01/2024 14:19:28 03/01/2024 15:37:18 Screening - NAD 142313873 Z13.9 C-scope: Not doing this at this [...] labs, ER if worse Screening for osteoporosis 440929493 Z13.820 Mild chron ic obstructive pulmonary disease 030071347 J44.9 Dr Decker 02/15/2023 , now sees Dr Menchaca [facility] Used to be nebs, breo, ventolin, incruseNow [...] Menchaca again to discuss this Essential hypertension 75316077 I10 On amiodarone 200mg dailyOn clonidine 0.1mg bid Dr Myers 01/16/2024 On lisinopril 20mg dailyOn HCTZOn metoprolol ER 25mg daily Dr Kirkland 06/09/[address] Gray Hypothyroidism 21353462 E03.9 On levothyrox ine 50mcg dailyOn liothyroni ne 5mg bid Dr Kirkland 06/09/2023 Serum brigid min B12 below reference range 576568055 R79.[address] Abd 10/27/2023 : Diverticul itis, hepatic steatosis Steatotic liver disease 361424567 K76.0 CT Abd 10/27/2023 : Diverticul itis, hepatic steatosisC T Abd: 12/26/2023 : [facility] ER, liver normal Get labs and US liver Gastroesop hageal reflux disease without esophagitis 323305554 K21.9 On omeprazole 20mg daily, take PRN,S/p EGD Dr Royal on prochloper azine for nausea, get another referral to Dr Alvarado Generalize d anxiety disorder 14037277 F41.1 On clonazepam 2mg tid, advised not to take this so often and only as PRN!Sees Dr Coronado her psychiatri st Hypercalcemia 74163676 E 83.52 Get a referral to nephrology Hyperlipidemia 81354339 E78.5 On atorvastat in 40mg dailyGet labs Hyperglycemia 45769308 R 73.9 Get labs and see podiatry and eye Leukocytosis 324214547 D 72.829 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 , advised to d/w her pulmonary MDRepeat the CBC again, may need to see hematology Adult [facility] th examination 640814450 Z00.00 Screening for disorder 059819572 Z13.9 [id number] Diego duarte MD [facility] General Surgery [address] [address] 05/24/2024 11:00:30 06/14/2024 14:42:42 Abdominal pain 17966019 R10.9 [id number] Diego duarte MD [facility] General Surgery [address] [address] 06/07/2024 12:31:18 06/14/2024 13:22:38 Abdominal pain 25079161 R10.9 [id number] David garcia MD [facility] Internal Med [facility] [address] [address] 01/10/2025 15:55:43 01/10/2025 16:36:22 Screening - NAD 008380520 Z13.9 C-scope: Not doing this at this [...] alone, states that her son lives in [place] and cannot visit her at all as [...] ing of the above Screening for osteoporosis 286157744 Z13.820 Mild chron ic obstructive pulmonary disease 513711871 J44.9 Dr Decker 02/15/2023 , now sees Dr Menchaca [facility] Used to be malcolm lyons ventolin, Aaron on HHNOn prednisone 5mg daily, explained to [...] Menchaca again to discuss this Essential hypertension 59379032 I10 ECHO 11/23/2024 : [facility] On amiodarone 200mg dailyOn clonidine 0.1mg bid Dr Myers 01/16/2024 On lisinopril 20mg dailyOn HCTZOn metoprolol ER 25mg daily Dr Kirkland 06/09/2023 Dr Gray 12/14/2024 : to get ILR implant Hypothyroidism 81398578 E03.9 OV 01/10/2025 :Has not been taking [...] Serum brigid min B12 below reference range 036042361 R79.[address] Abd 10/27/2023 : Diverticul itis, hepatic steatosis Steatotic liver disease 662304385 K76.0 CT Abd 10/27/2023 : Diverticul itis, hepatic steatosisC T Abd: 12/26/2023 : [facility] ER, liver normal Get labs and US liver Gastroesop hageal reflux disease without esophagitis 135648830 K21.9 On omeprazole 20mg daily, take PRN,S/p EGD Dr Royal on prochloper azine for nausea, get another referral to Dr Alvarado Now see GI Dr Joselito Moore Generalize d anxiety disorder 68044630 F41.1 On clonazepam 2mg tid, advised not to take this so often and only as PRN!Sees Dr Coronado her psychiatri st Hypercalcemia 16118650 E 83.52 Get a referral to nephrology Hyperlipidemia 16807638 E78.5 On atorvastat in 40mg dailyGet labs Hyperglycemia 46825148 R 73.9 Get labs and see podiatry and eye Leukocytosis 133967813 D 72.829 May be d/t chronic abuse [...] the recommenda tion for this from the consultant [employer]. vice president [employer] (ex ) [id number] David garcia MD [facility] Internal Med [address] [facility] [place] [address] 06/18/2025 15:05:39 06/18/2025 16:37:23 Adult health examination 619684827 Z00.00 Screening for disorder 307670841 Z13.9 Screening - NAD 80507611 3 Z13.9 C-scope: Not doing this at [...] alone, states that her son lives in [place] and cannot visit her at all as [...] ing of the above Screening for osteoporosis 878137087 Z13.820 Mild chron ic obstructive pulmonary disease 158419478 J44.9 Dr Decker 02/15/2023 , now sees Dr Menchaca [facility] Used to be nebs, breo, ventolin, incruseNow [...] to discuss this referred 06/18/2025 Essential hypertension 45932259 I10 ECHO 11/23/2024 : [facility] On amiodarone 200mg dailyOn clonidine 0.1mg bid Dr Myers 01/16/2024 On lisinopril 20mg dailyOn HCTZ 25mg dailyOn metoprolol ER 25mg daily Dr Kirkland 06/09/2023 Dr Gray 12/14/2024 : to get ILR implantRef erred 06/18/2025 Hypothyroidism 37676463 E03.9 OV 01/10/2025 :Has not been taking [...] Serum brigid min B12 below reference range 265269967 R79.[address] Abd 10/27/2023 : Diverticul itis, hepatic steatosis Steatotic liver disease 720914194 K76.0 CT Abd 10/27/2023 : Diverticul itis, hepatic steatosisC T Abd: 12/26/2023 : [facility] ER, liver normalUS liver 03/15/2025 : Neg Gastroesop hageal reflux disease without esophagitis 762302746 K21.9 On omeprazole 20mg daily, take PRN,S/p EGD Dr Royal on prochloper azine for nausea, get another referral to Dr Alvarado Now see GI Dr Joselito Moore Generalize d anxiety disorder 13360894 F41.1 On clonazepam 2mg tid, advised not to take this so often and only as PRN!Sees Dr Coronado her psychiatri st Hypercalcemia 40518522 E 83.52 Get a referral to nephrology Hyperlipidemia 34841303 E78.5 On atorvastat in 40mg dailyGet labs Hyperglycemia 21412921 R 73.9 Get labs and see podiatry and eye Leukocytosis 670213635 D 72.829 May be d/t chronic abuse [...] the recommenda tion for this from the consultant luxury and auto. vice president [employer] (ex ) Severe dementia 98921540 01 50648 F03.C0 1511284186 SLUM test score was 7/30Get a referral [...] Morgan Member ID Guarantor Name 09/16/2025 1 [place] Dolores Gross [id number] Dolores Gross 09/23/2025 2 AARP (MEDICARE SUPPLEMENT) Dolores Gross [id number] Dolores Gross Notes Date Note Type Note [...] well at this time David Ballard MD [address], [place], [address], [facility] [employer] 03/14/2024 17:43:48 05/24/2024 text/html patient presents with multiple complaints including nausea, occasional vomiting, feeling weak, acid in her throat, mild abdominal pain throughout her abdomen occasionally. Denies diarrhea constipation. Denies fevers or chills. This is been going on for a year and she feels miserable Diego Lay MD [address], [place], [address], [employer] 05/24/2024 14:55:12 06/07/2024 text/html patient with a multitude of complaints including stomach gas, nausea vomiting abdominal discomfort. Has had a multitude of test. Following up on HIDA frandy Lay MD [address], [place], [address], [facility] 06/07/2024 14:46:28 01/10/2025 text/html OV 12/01/2023:Here to [...] well today David Ballard MD [address], [place], [address], [facility] 01/10/2025 16:57:25 06/18/2025 text/html OV 12/01/2023:Here to [...] her med list David Ballard MD [address], [place], [address], [facility] [employer] [facility] 06/20/2025 19:02:19 OBGyn Episode No OBEpisode recorded.
--- OUTSIDE RECORDS SUMMARY | 2025-10-06 17:42 | XMS_ITS | Clinical Summary ---
Author Organization [facility] [address] Address [address] [place] [address] Care Team Providers Care Truss Driver Helper Name Role Phone Dennis Law MD Unavailable Crystal Gaitan MD PhD Unavaila ble Sherrill Traylor MD Unavailable [phone] Marilu Nation NP Unavailable Manuel Ballard MD Primary Care Provide r Allergies Active Allergy Reactions Criticality Noted Date Comments Adhesive Redness Low 02/15/2020 Amlodipine Carvedilol Other (See comments) Low Reaction: Took for a year, lung infxn, sinus, Diltiazem Hydralazine Unknown 07/07/2017 Verapamil Unknown 03/19/2021 Medications levothyroxine (SYNTHROID) 50 mcg tablet Take 1 tablet (50 mcg total) by mouth front maker lockstitch before breakfast Active clonazePAM (KlonoPIN) 2 mg [...] CDT): Per patient diagnosed with diverticulitis at [facility] a few months ago and was treated with antibiotics. 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, estrogen receptor positive 03/19/2021 Cancer Staging:Pathologic stage from 04/08/2021:Stage IA(pT1a, pN0, cM0, G2, ER+, NE+, HER2-) - Signed by Sherrill Traylor MD [...] Encounters Date Type Department Care Team Description 10/03/2025 Telephone [facility] [address] [place] [address] Susan Bah CMA 10/03/2025 Documentation [facility] [address] [place] [phone] Connie Gomez LCSW 09/26/2025 [facility] [address] [place] [phone] Connie Gomez LCSW 09/24/2025 Documentation [facility] [address] [place] [phone] Heather Malcolm, CRYSTAL 09/18/2025 Documentation [facility]cology [address] [place] [address] [phone] Connie Gomez, CRYSTAL from Last 3 Months Immunizations Immunization Administration [...] on file Legal Sex Female 3:[address]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 not feeling good, nervous Pulse 98 02/01/2025 1:[address] [employer]KE [employer]ER Temperature 36.6 C (97.9 F) 02/01/2025 1:[address] [employer]KE COUPLER Respiratory Rate 18 02/01/2025 1:[address] [employer]KE [employer]ER Oxygen Saturation 95% 02/01/2025 1:[address] [employer]KE [employer]PLER Inhaled Oxygen Concentration - - Weight 60.8 kg (134 lb) 02/01/2025 1:[address] [employer] Height 156.2 cm (5' 1.5) 02/01/2025 1: [address] [employer]KE [employer]PLER Body Mass Index 24.91 02/01/2025 1:[address] [employer]ER Plan of Treatment Health Maintenance Due Date Last Done Comments DTaP/Tdap/Td Vaccine (1 - Tdap) 1954 Hepatitis B Screening 1961 Pneumococcal vaccine 65+ (1 of 2 - PCV) 1962 Zoster Vaccine (1 of 2) 1962 Well Visit 65+ 2008 Osteoporosis Screening-Bone Density Scan 06/11/2023 06/11/2021 Covid-19 Vaccine (4 - 2024-2 6 [...] breast in female, estrogen receptor positive (HCC) assisted (current) use of aromatase inhibitors from Last [...] Most Recently Relevant to Health Maintenance Insurance [id number] MEDICARE MEDICARE AARP [facility] MEDICARE Advance Directives For more information, please contact: [phone] * Full Code (Latest Code Status on File) Date Activated Date Inactivated Comments 08/09/2024 6:57 PM 08/11/2024 8:20 PM Care Teams Truss Driver Helper Relationship Specialty Start Date End Date Manuel Ballard MD [address] [facility] [address] [place] [address] PCP - General Internal Medicine 01/27/24 Dennis Law MD Consulting Physician Medical Oncology 04/22/21 Crystal Gaitan MD PhD Surgeon Surgical Oncology 05/28/21 Sherrill Traylor MD [address] [place] [address] Radiation Oncologist Radiation Oncology 07/16/21 Marilu Nation NP [address] [place] [address] Nurse Practitioner Gastroenterology 10/26/23
[2025-10-06 17:53] LABS: Influenza A QL RT-PCR Negative (Negative); Influenza B QL RT-PCR Negative (Negative); RSV RNA, RT-PCR Negative (Negative); SARS-CoV-2 RNA PCR Negative (Negative)
[2025-10-06 17:54] LABS: INR 1.0; Prothrombin Time 12.9 Seconds (11.1-14.7)
[2025-10-06 17:56] LABS: Partial Thromboplastin Time 25.0 Seconds (22.3-36.8)
[2025-10-06 17:58] LABS: Alanine Aminotransferase 22 U/L (6-35); Albumin Level 4.2 g/dL (3.5-5.1); Alkaline Phosphatase 95 U/L (38-126); Anion Gap 7 mmol/L (4-12); Aspartate Amino Transferase 28 U/L (14-36); Bilirubin,Total 0.4 mg/dL (0.2-1.3); Blood Urea Nitrogen 20 mg/dL (7-17); Calcium 9.4 mg/dL (8.4-10.2); Carbon Dioxide 24 mmol/L (22-30); Chloride 101 mmol/L (98-107); Estimated CRCL calculation 34 ml/min; Estimated Glomerular Filt Rate > 60; Glucose 169 mg/dL (65-110); Potassium 4.5 mmol/L (3.4-5.0); Sodium 132 mmol/L (137-145); Total Protein 7.2 g/dL (6.3-8.2)
[2025-10-06 18:03] LABS: NT Pro B Type Natriuretic Pept 461 pg/mL (19.9-100)
--- NOTE | 2025-10-06 20:48 | PC.NURSE ---
Patient ambulated around the unit with pulse ox on finger. Patient was able to ambulate with no assist, pulse ox ranged between 95-97%. Patient in no distress but states she cannot breath.
--- NOTE | 2025-10-06 20:55 | PC.NURSE ---
RN called caregiver and no answer. RN called son and he states she can take a cab, he is disabled and cannot pick her up.
--- NOTE | 2025-10-06 21:14 | PC.NURSE ---
RN spoke with Lisa about transport home, she states she cannot drive at this time.
--- NOTE | 2025-10-06 22:03 | PC.NURSE ---
Patient dressed in clothing, IV removed. Patient states she would like to take a cab ride home.
--- NOTE | 2025-10-06 22:17 | PC.NURSE ---
RN called a cab ride for patient. Patient aware of llanes of cab ride and about pickup.
== END 2025-10-06 22:19 | disposition home or self-care (01) ==
PROVIDERS: Emergency Medicine; Emergency Provider Physician Assistant; PCP Internal Medicine
DX: R06.02 Shortness of breath (principal); Z20.822 Contact with and (suspected) exposure to COVID-19; I48.91 Unspecified atrial fibrillation; I10 Essential (primary) hypertension; J44.9 Chronic obstructive pulmonary disease, unspecified; E03.9 Hypothyroidism, unspecified; G47.33 Obstructive sleep apnea (adult) (pediatric); K21.9 Gastro-esophageal reflux disease without esophagitis; K58.9 Irritable bowel syndrome, unspecified; M19.90 Unspecified osteoarthritis, unspecified site; F41.9 Anxiety disorder, unspecified; Z85.3 Personal history of malignant neoplasm of breast; Z87.820 Personal history of traumatic brain injury; Z96.1 Presence of intraocular lens; Z98.42 Cataract extraction status, left eye; Z98.41 Cataract extraction status, right eye; Z79.899 Other long term (current) drug therapy; R94.31 Abnormal electrocardiogram [ECG] [EKG]
CPT/HCPCS: 36415; 71046; 71275; 80053; 83880; 85025; 85380; 85610; 85730; 87637; 93005; 99284; A9270; Q9967